=== PATIENT | female | born 1980 | race Caucasian/White ===

== ENCOUNTER 2019-07-24 04:39 | Emergency (ER) | payer OTHER, SELFPAY ==
--- NOTE | ~2019-07-24 | XR_ITS ---
EXAMINATION: XR knee LT 3V DATE: 07/24/2019 05:14 INDICATION: Posterior left knee pain TECHNIQUE: Anteroposterior, oblique and crosstable lateral views of the left knee were obtained COMPARISON: None. FINDINGS: Alignment is normal. No fracture. At least mild joint space narrowing the medial compartment and mar ginal osteophytes in the lateral and patellofemoral compartments consistent with tricompartmental ost eoarthritis. Severity of joint space narrowing can however be underestimated on nonweightbearing imag ing. No joint effusion/layering lipohemarthrosis. Soft tissues are unremarkable. IMPRESSION: 1. 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 No left knee joint effusion or acu te osseous abnormality. Reviewed, dictated and finalized at location A. JOINER IMPRESSION: 1. 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 No left knee joint effusion or acute osseous abnormality.
[2019-07-24 04:47] VITALS: BP 117/76; PULSE 77; RESP 16; TEMP 36.7; O2SAT 98
--- NOTE | 2019-07-24 05:07 | ED.LOWEXIN ---
HPI - Extremity Injury (Lower) General Chief Complaint: Extremity Injury, Lower Stated Complaint: L KNEE PAIN Time Seen by Provider: 07/24/19 04:45 History of Present Illness HPI Narrative: Patient is a 39-year-old female who presents the ER with left-sided knee pain. Patient sat down on the toilet at 10:30 PM and felt a pop in her left knee. She had no pain at that time. However when she tried to go from sitting to standing she developed a lot of pain in the left lateral aspect of the knee and posteriorly. No new numbness or tingling distal to the injury. No appreciable swelling. Has difficulty with any sort of ambulation. Went to bed this evening and woke up to use the restroom. She had so much pain she was unable to walk to the bathroom. She came to the ER with her mother. Any type of movement worsens patient's pain. No alleviating factors other than sitting still. Related Data Allergies Allergy/AdvReac Type Severity Reaction Status Date / Time meperidine Allergy Unknown Verified 09/06/13 09:18 Review of Systems Constitutional: Constitutional: Denies fever(s) and Denies weakness Musculoskeletal: Musculoskeletal: Reports arthralgias, Denies joint swelling and Denies muscle cramps Neurologic: Denies focal weakness and Denies numbness PMFSH Past Medical History Medical History (Updated 07/24/19 @ 05:46 by Kiel Salazar MD) Migraine with aura Surgical History Surgical History (Updated 07/24/19 @ 05:09 by Kiel Salazar MD) No significant past surgical history Social History Social History Smoking status: Never smoker Alcohol intake: current Exam Narrative: Exam Narrative: GENERAL: Well-appearing, morbidly obese, and in no acute distress. HEAD: Normocephalic, atraumatic. HEART: Regular rate and rhythm. Normal peripheral pulses. EXTREMITIES: Focused exam left lower extremity elicits no point tenderness around the left knee. Patient has the ability to get the full extension and can get to near full flexion but has significant pain with range of motion over the lateral posterior lateral aspect of the knee. No appreciable effusion. No contusion noted. SKIN: Warm, dry, no rash. NEURO: No focal deficits. Alert and oriented x3. PSYCH: Normal mood and affect. Course Course Emergency Course: Patient informed of results. Will place knee immobilizer and placed on crutches weightbearing as tolerated. Will give Ortho follow-up. Vital Signs Vital signs: Vital Signs Temperature 98.1 F 07/24/19 04:47 Pulse Rate 77 07/24/19 04:47 Respiratory Rate 16 07/24/19 04:47 Blood Pressure 117/76 07/24/19 04:47 Pulse Oximetry 98 07/24/19 04:47 Temperature 98.1 F 07/24/19 04:47 Pulse Rate 77 07/24/19 04:47 Respiratory Rate 16 07/24/19 04:47 Blood Pressure 117/76 07/24/19 04:47 Pulse Oximetry 98 07/24/19 04:47 MDM - Extremity Injury (Lower) Imaging Data My impression: XR left knee: No acute fracture. Discharge Plan Discharge Clinical Impression: Left knee sprain Qualifiers: Encounter type: initial encounter Involved ligament of knee: unspecified ligament Qualified Code(s): S83.92XA - Sprain of unspecified site of left knee, initial encounter Patient Disposition: Home, Self-Care Condition: Stable Instructions: Knee Sprain (ED) Additional Instructions: There is no evidence of fracture on the x-ray in the ER. Bear weight as tolerated. If your pain persists you will likely require further evaluation, possibly an MRI to assess the internal structure of the knee for injury. Return the ER if you have chest pain or shortness of breath, you have severe lower extremity redness/swelling with pain in the calf, you have additional concerns. Prescriptions: New hydrocodone-acetaminophen 7.5-325 mg tablet 1 tablet PO Q6H PRN (Reason: pain) Qty: 20 RF: 0 Follow-up/Referrals: PHYSICIAN NOT ON STAFF,NONSTAFF [Primary Care Provider] -
[2019-07-24 06:24] VITALS: BP 121/71; PULSE 82; RESP 16; TEMP 36.9; O2SAT 98
== END 2019-07-24 06:27 | disposition home or self-care (01) ==
PROVIDERS: Emergency Provider Emergency Medicine
DX: S83.92XA Sprain of unspecified site of left knee, initial encounter (principal); X50.0XXA Overexertion from strenuous movement or load, initial encounter
CPT/HCPCS: 73562; 99283; A9270

== ENCOUNTER 2019-07-27 16:33 | Outpatient (CLI) | payer OTHER, SELFPAY ==
--- NOTE | ~2019-07-27 | US_ITS ---
EXAMINATION:US venous doppler LE LT INDICATION:Left calf pain TECHNIQUE: Multiple grayscale, color flow and Doppler images of the left lower extremity deep venous systems were obtained and reviewed. COMPARISON:No prior studies for comparison. FINDINGS: The common femoral, superficial femoral and popliteal veins demonstrate normal respiratory variation, augmentation and compressibility. Color flow is also seen within the posterior tibial, pe roneal, greater saphenous and profunda veins. 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 IMPRESSION: 1: No lower extremity deep venous thrombosis. Reviewed, dictated and finalized at location A. E MANAGER
== END 2019-07-27 16:34 | disposition home or self-care (01) ==
LOC: ANHIMG 16:40
PROVIDERS: Visit Provider Orthopaedic Surgery
DX: M79.662 Pain in left lower leg (principal)
CPT/HCPCS: 93971

== ENCOUNTER 2020-07-31 10:13 | Emergency (ER) | payer OTHER, SELFPAY ==
[2020-07-31] VITALS (13 sets, daily range): BP systolic 135–150; BP diastolic 81–94; PULSE 68–93; RESP 12–25; TEMP 36.1; O2SAT 95–100
--- NOTE | ~2020-07-31 | XR_ITS ---
EXAMINATION: XR chest 2V EXAM DATE: 07/31/2020 11:36 INDICATION: Shortness of breath, nausea, fatigue. Tingling in toes, fingers. TECHNIQUE: Frontal and lateral projections of the chest obtained and reviewed. There is no prior adia dy for comparison. FINDINGS: The lungs are clear. There are no pleural effusions. The cardiomediastinal silhouette is within normal limits. There is no pneumothorax suspected. The bones and soft tissues are unremarkab le. There are cholecystectomy clips. IMPRESSION: No acute cardiopulmonary findings. Reviewed, dictated and finalized at location B. TTANCE CLERK
--- NOTE | 2020-07-31 10:35 | ED.GENADULT ---
HPI - General Adult General Chief complaint: Unspecified Stated complaint: Multiple Complaints Time Seen by Provider: 07/31/20 10:35 History of Present Illness HPI narrative: 40 yo female presents from home for fatigue. She reports that she has been extremely fatigued for the past 5 days. She says that after minimal activity she needs to take a nap. She also notes tingling to her face bilaterally. Intermittent mild WORRELL. Related Data Allergies Allergy/AdvReac Type Severity Reaction Status Date / Time meperidine Allergy Unknown Itching Verified 07/31/20 10:32 Review of Systems Review of Systems: All systems reviewed & are unremarkable except as noted in HPI and below Constitutional: Constitutional: Denies chills, Reports daytime sleepiness, Reports fatigue and Denies fever(s) Eyes: Eyes: Reports no additional eye complaints ENT: Denies sore throat Cardiovascular: Cardiovascular: Denies chest pain and Reports dyspnea on exertion Respiratory: Respiratory: Denies cough Gastrointestinal: Gastrointestinal: Denies abdominal pain Genitourinary: Genitourinary: Reports no additional female genitourinary complaints Musculoskeletal: Musculoskeletal: Reports myalgias Neurologic: Reports numbness and Reports weakness PMFSH Past Medical History Medical History Headache Migraine with aura Seasonal allergies Urinary frequency Vision abnormalities Weight gain Surgical History Surgical History History of cholecystectomy No significant past surgical history Family History Family History Other Arthritis Cancer Diabetes mellitus Heart disease Hypertension Social History Social History Smoking status: Never smoker Alcohol intake: current Gender identity (if verbalized by the patient): Female Exam Const: General: healthy appearing, no acute distress and alert Nutritional Appearance: obese Orientation/consciousness: patient oriented x3 HENMT: Head: normal to inspection Neck: Neck: normal visual inspection and no lymphadenopathy Chest: Chest palpation & inspection: no tenderness Resp: Effort & Inspection: normal respiratory effort Auscultation: clear to auscultation bilaterally, no rales, no rhonchi and no wheezes Cardio: Jugular venous distension: no JVD Rate: regular rate Rhythm: regular rhythm Heart sounds: no murmurs GI: Inspection: non-distended GI Palp: Yes Soft to palpation and No Tenderness to palpation present (GI) Skin: General skin exam: normal color Neuro: General: patient oriented x3 and moves all extremities Speech: normal speech Extrem: General: no edema Psych: Appearance: well kempt Affect: normal affect Course Vital Signs Vital signs: Vital Signs Temperature 36.1 C L 07/31/20 10:25 Pulse Rate 93 07/31/20 10:25 Respiratory Rate 18 07/31/20 10:25 Blood Pressure 150/94 H 07/31/20 10:25 Pulse Oximetry 95 07/31/20 10:25 Temperature 36.1 C L 07/31/20 10:25 Pulse Rate 68 07/31/20 14:01 Respiratory Rate 12 07/31/20 14:01 Blood Pressure 136/81 07/31/20 14:01 Pulse Oximetry 100 07/31/20 14:01 Medical Decision Making Medical Records Medical records reviewed: Yes I reviewed the external patient's medical records. Vital Signs Vital Signs: Vital Signs Temperature 36.1 C L 07/31/20 10:25 Pulse Rate 93 07/31/20 10:25 Respiratory Rate 18 07/31/20 10:25 Blood Pressure 150/94 H 07/31/20 10:25 Pulse Oximetry 95 07/31/20 10:25 Temperature 36.1 C L 07/31/20 10:25 Pulse Rate 68 07/31/20 14:01 Respiratory Rate 12 07/31/20 14:01 Blood Pressure 136/81 07/31/20 14:01 Pulse Oximetry 100 07/31/20 14:01 Lab Data Result diagrams: 07/31/20 11:07 07/31/20 11:07
--- NOTE | 2020-07-31 10:44 | ECG_ITS ---
Measurements Intervals [place] Rate: 77 P: 42 NE: 151 QRS: 17 QRSD: 89 T: 20 QT: 382 QTc: 432 Interpretive Statements SINUS RHYTHM NORMAL ECG Electronically Signed On 07-31-2020 11:33:55 HOME HEALTH OUTREACH COORDINATOR by Sukhdev Duval D.O.
[2020-07-31 11:52] LABS: Basophils Percent Auto 0.5 % (0.2-1.2); Eosinophils Absolute Auto 0.1 K/mm3 (0-0.3); Hematocrit 41.5 % (37.0-47.0); Hemoglobin 14.4 g/dL (12.0-15.0); Immature Granulocyte Absolute 0.01 K/mm3 (0.00-0.031); Immature Granulocyte Percent A 0.1 % (0-0.5); Lymphocytes Absolute Auto 1.85 K/mm3 (0.9-3.2); Lymphocytes Percent Auto 23.4 % (18.3-44.2); Mean Corpuscular HGB Conc 34.7 g/dl (32-36); Mean Corpuscular Hemoglobin 30.8 pg (26-34); Mean Corpuscular Volume 88.9 fl (80-100); Mean Platelet Volume 10.6 fl (7.4-10.4); Monocytes Absolute Auto 0.5 K/mm3 (0.1-0.6); Monocytes Percent Auto 6.8 % (2.6-8.5); Neutrophils Absolute Auto 5.4 K/mm3 (1.3-6.7); Neutrophils Percent Auto 68.2 % (45.5-73.1); Platelet Count Result 215 k/mm3 (150-375); Red Blood Count 4.67 M/mm3 (4.2-5.4); Red Cell Distribution Width 12.7 % (11.5-14.5); White Blood Count 7.9 K/mm3 (4.5-10.0)
[2020-07-31 11:58] LABS: Add Urine Microscopic? YES; Appearance Urine Clear (Clear); Bilirubin Urine Negative (Negative); Blood Urine Negative (Negative); Color Urine Yellow (Yellow); Glucose Urine UA Negative (Negative); Ketones Urine Negative (Negative); Leukocyte Esterase Ur Negative LEU/UL (Negative); Mucus Urine Rare /lpf; Nitrate Urine Negative (Negative); Protein Urine 1+ mg/dL (Negative); RBC Urine 0-2 /hpf (0-2); Specific Grav Ur 1.023 (1.001-1.035); Squamous Epithelial Cell Urine Occasional /hpf (Few); Urobilinogen Urine Negative mg/dL (<2.0); WBC Urine 0-3 /hpf
[2020-07-31 12:06] LABS: INR 0.9; Partial Thromboplastin Time 24.8 SECONDS (22.3-36.8); Prothrombin Time 12.3 Seconds (11.1-14.7)
[2020-07-31 12:13] LABS: Alanine Aminotransferase 19 U/L (4-35); Albumin Level 3.9 g/dL (3.5-5.1); Alkaline Phosphatase 61 U/L (38-126); Anion Gap 11 mmol/L (8-16); Aspartate Amino Transferase 24 U/L (14-36); Bilirubin,Total 0.3 mg/dL (0.2-1.3); Blood Urea Nitrogen 10 mg/dL (7-17); Calcium 8.9 mg/dL (8.4-10.2); Carbon Dioxide 19 mmol/L (22-30); Chloride 111 mmol/L (98-107); Estimated CRCL calculation 125 ml/min; Estimated Glomerular Filt Rate > 60; Glucose 95 mg/dL (65-105); Potassium 3.9 mmol/L (3.4-5.0); Sodium 141 mmol/L (137-145)
== END 2020-07-31 14:07 | disposition home or self-care (01) ==
PROVIDERS: Emergency Provider Emergency Medicine; PCP Internal Medicine
DX: R53.83 Other fatigue (principal); R53.81 Other malaise
CPT/HCPCS: 36415; 71046; 80053; 81001; 84443; 85025; 85610; 85730; 93005; 99283

== ENCOUNTER 2023-12-07 13:38 | Emergency (ER) | payer BC, SELFPAY ==
--- NOTE | ~2023-12-07 | CT_ITS ---
EXAMINATION: CT abdomen pelvis w con DATE: 12/07/2023 15:02 INDICATION: Generalized abdominal pain TECHNIQUE: Computed tomography (CT) of the abdomen and pelvis was performed with 100 mL Omnipaque-350 intravenous contrast. Automated exposure control and iterative reconstruction technique were employe d. The dose-length product was 1679.01 mGy-cm. COMPARISON: None. FINDINGS: Lower thorax: Sub-six mm right middle lobe pulmonary nodule. Liver: Enlarged. Diffusely low-density parenchyma. Biliary/Gallbladder: Gallbladder is absent. Mild common bile duct dilation likely secondary to cholec ystectomy. Pancreas: No mass or duct dilation. Spleen: Normal. Adrenals:No mass. Kidneys: No suspicious mass, obstructing stone, or hydronephrosis. Simple right lower pole cyst. Bila teral subcentimeter hypodensities, too small to characterize but most likely represent cysts. GI tract: No small or large bowel dilation. Normal appendix. Mesentery/Peritoneum: No ascites, mass, or free air. Retroperitoneum: No mass. Pelvis: Pelvic organs are within normal limits. Soft Tissues: Soft tissues and body wall unremarkable. Bones: No acute osseous finding. IMPRESSION: Sub-six millimeter right middle lobe pulmonary nodule which requires no additional evaluation unless the patient is at high risk, in which case consider an optional low-dose noncontrast CT of the chest in one year. Hepatomegaly with steatosis. Otherwise unremarkable CT abdomen and pelvis findings. Reviewed, dictated and finalized at location K. IMPRESSION: Sub-six millimeter right middle lobe pulmonary nodule which requires no additio nal evaluation unless the patient is at high risk, in which case consider an op tional low-dose noncontrast CT of the chest in one year. Hepatomegaly with steatosis. Otherwise unremarkable CT abdomen and pelvis findings.
[2023-12-07 13:42] VITALS: BP 142/86; PULSE 96; RESP 16; TEMP 37.2; O2SAT 99
[2023-12-07 14:08] LABS: Basophils Percent Auto 0.3 % (0.2-1.2); Eosinophils Absolute Auto 0.4 K/mm3 (0-0.3); Eosinophils Percent Auto 3.7 % (0-4.4); Hematocrit 40.9 % (37.0-47.0); Hemoglobin 14.2 g/dL (12.0-15.0); Immature Granulocyte Absolute 0.04 K/mm3 (0.00-0.031); Immature Granulocyte Percent A 0.3 % (0-0.5); Lymphocytes Absolute Auto 1.71 K/mm3 (0.9-3.2); Lymphocytes Percent Auto 14.4 % (18.3-44.2); Mean Corpuscular HGB Conc 34.7 g/dl (32-36); Mean Corpuscular Hemoglobin 29.3 pg (26-34); Mean Corpuscular Volume 84.3 fl (80-100); Mean Platelet Volume 10.5 fl (7.4-10.4); Monocytes Percent Auto 8.6 % (2.6-8.5); Neutrophils Absolute Auto 8.6 K/mm3 (1.3-6.7); Neutrophils Percent Auto 72.7 % (45.5-73.1); Platelet Count Result 207 k/mm3 (150-375); Red Blood Count 4.85 M/mm3 (4.2-5.4); Red Cell Distribution Width 13.2 % (11.5-14.5); White Blood Count 11.9 K/mm3 (4.5-10.0)
--- NOTE | 2023-12-07 14:13 | ED.NAVMDI ---
HPI - Nausea/Vomiting/Diarrhea General Chief complaint: Nausea/Vomiting/Diarrhea Stated complaint: vomiting Time Seen by Provider: 12/07/23 14:13 Source: patient Mode of arrival: ambulatory Limitations: no limitations History of Present Illness HPI Narrative: 43 years old white female drove herself to the [facility] complaining of nausea, vomiting and diarrhea on average 5-10 times since 12 noon yesterday. Associated with chills and upper abdominal pain. Also and complaining of flank pain bilaterally. She denies sick contact. Last time was seen by a physician over 3 years ago, does not take medicine at this time. Healthy otherwise. Related Data Allergies Allergy/AdvReac Type Severity Reaction Status Date / Time meperidine Allergy Unknown Itching Verified 12/07/23 14:37 Review of Systems Review of Systems: All systems reviewed & are unremarkable except as noted in HPI and below PMFSH Past Medical History Medical History (Updated 12/07/23 @ 15:55 by Brenden Hernandez MD) Headache Migraine with aura Seasonal allergies Urinary frequency Vision abnormalities Weight gain Surgical History Surgical History History of cholecystectomy No significant past surgical history Family History Family History Other Arthritis Cancer Diabetes mellitus Heart disease Hypertension Social History Social History Smoking status: Never smoker Alcohol intake: current Alcohol use details: Occasional Gender identity (if verbalized by the patient): Female Exam Narrative: General appearance: Well-developed, well-nourished, morbidly obese Skin: Normal color Head: Normocephalic, nontraumatic Eyes: Clear conjunctiva ENT: Oropharynx normal, ears normal, nose normal Neck: Supple, nontender Chest and respiratory: Airway patent, no respiratory distress, no accessory muscle use Heart: Regular rate/rhythm Abdomen: Soft, slight upper abdominal tenderness, no rebound or guarding r, no organomegaly, quiet bowel sounds Vascular: Normal peripheral pulses, normal capillary refill. 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, no gross motor deficit Course Vital Signs Vital signs: Vital Signs Temperature 37.2 C 12/07/23 13:42 Pulse Rate 96 12/07/23 13:42 Respiratory Rate 16 12/07/23 13:42 Blood Pressure 142/86 H 12/07/23 13:42 Pulse Oximetry 99 12/07/23 13:42 Oxygen Delivery Room Air 12/07/23 13:42 Temperature 37.2 C 12/07/23 13:42 Pulse Rate 96 12/07/23 13:42 Respiratory Rate 16 12/07/23 13:42 Blood Pressure 142/86 H 12/07/23 13:42 Pulse Oximetry 99 12/07/23 13:42 Oxygen Delivery Room Air 12/07/23 13:42 MDM - Nausea/Vomiting/Diarrhea MDM Narrative Medical decision making narrative: Differential diagnosis include viral gastroenteritis, dehydration, electrolyte imbalance, colitis, pancreatitis, cholecystitis and diverticulitis Laboratory studies were obtained on the patient and showed a white count of 11.9 otherwise insignificant blood workup, urinalysis showed no urinary tract infection, CT scan of the abdomen and pelvis showed pulmonary nodule otherwise insignificant abnormality. Gastroenteritis is my concern. In the ED patient received IV fluid and Zofran was remarkable improvement. The plan to discharge patient on Zofran and encourage fluid intake. Differential Diagnosis Differential diagnosis: Likely other (As above) Medical Records Attestation: I reviewed the patient'
[2023-12-07 14:17] LABS: Alanine Aminotransferase 24 U/L (6-35); Albumin Level 4.6 g/dL (3.5-5.1); Alkaline Phosphatase 80 U/L (38-126); Anion Gap 9 mmol/L (4-12); Aspartate Amino Transferase 24 U/L (14-36); Bilirubin,Total 0.9 mg/dL (0.2-1.3); Blood Urea Nitrogen 7 mg/dL (7-17); Calcium 8.9 mg/dL (8.4-10.2); Carbon Dioxide 25 mmol/L (22-30); Chloride 105 mmol/L (98-107); Estimated CRCL calculation 144 ml/min; Estimated Glomerular Filt Rate > 60; Glucose 120 mg/dL (65-110); Lipase 108 U/L (23-300); Potassium 3.4 mmol/L (3.4-5.0); Sodium 139 mmol/L (137-145)
[2023-12-07 14:40] LABS: Appearance Urine Cloudy (Clear); Bacteria Urine Rare /hpf; Bilirubin Urine Negative (Negative); Blood Urine Negative (Negative); Color Urine Dark Yellow (Yellow); Glucose Urine UA Negative (Negative); Ketones Urine Trace mg/dL (Negative); Leukocyte Esterase Ur Trace LEU/UL (Negative); Need Manual Microscopic Reviewed; Nitrate Urine Negative (Negative); Protein Urine 1+ mg/dL (Negative); Specific Grav Ur 1.016 (1.001-1.035); Squamous Epithelial Cell Urine Many /hpf (Few); pH Urine 6.5 (5.0-9.0)
[2023-12-07 14:41] LABS: Add Urine Microscopic? YES
[2023-12-07] MEDS: ONDANSETRON INJ 4 MG/2 ML VIAL 8 MG IV PUSH (15:06)
[2023-12-07] MEDS: SODIUM CHLORIDE 0.9% IV 2,000 ML 999 ML IV CONT (15:08)
[2023-12-07 16:01] VITALS: BP 153/91; PULSE 82; RESP 22; O2SAT 98
[2023-12-07 16:16] VITALS: BP 138/78; PULSE 82; RESP 22; O2SAT 98
[2023-12-07 16:31] VITALS: BP 145/87; PULSE 78; RESP 22; O2SAT 97
[2023-12-07 16:46] VITALS: BP 152/91; PULSE 81; RESP 24; O2SAT 98
[2023-12-07 17:01] VITALS: BP 140/92; PULSE 80; RESP 20; O2SAT 98
== END 2023-12-07 17:05 | disposition home or self-care (01) ==
PROVIDERS: Emergency Medicine; Emergency Provider Emergency Medicine; PCP Internal Medicine
DX: K52.9 Noninfective gastroenteritis and colitis, unspecified (principal); R91.1 Solitary pulmonary nodule; Z90.49 Acquired absence of other specified parts of digestive tract; K76.0 Fatty (change of) liver, not elsewhere classified; R16.0 Hepatomegaly, not elsewhere classified
CPT/HCPCS: 36415; 74177; 80053; 81001; 83690; 85025; 87086; 87088; 96361; 96374; 99284; J2405; J7030; Q9967

== ENCOUNTER 2024-04-20 11:57 | Emergency (ER) | payer BC, SELFPAY ==
--- NOTE | ~2024-04-20 | CT_ITS ---
EXAMINATION: CTA BRAIN/CAROTID DATE: 04/20/2024 14:32 INDICATION: Neck pain after chiropractic adjustment TECHNIQUE: Computed tomographic angiography (CTA) of the head and neck was performed with 100 mL Omni paque-350 intravenous contrast. Multiplanar reconstructions and maximum intensity projection 3D-recon structions of the carotid arteries and of the intracranial arteries were created by the technologist on a separate workstation. Precontrast CT of the head was also obtained. Automated exposure control and iterative reconstruction technique were employed.The dose-length product was 1609.64 mGy-cm. COMPARISON: None. FINDINGS: Carotid arteries: Visualized portion of the aortic arch is normal in caliber with no dissection. There is no evident at herosclerotic plaque with 0% stenosis of the right and left carotid bulbs relative to normal distal a rtery lumen diameter (NASCET criteria). Bilateral vertebral arteries are codominant with no evident h emodynamically significant stenosis or dissection. Mild thoracic spondylosis. Visualized portion of t he mid to upper lungs are clear. Likely benign 8 mm low-attenuation right thyroid nodule. Cervical so ft tissues are unremarkable. Head: No acute intracranial hemorrhage, acute infarction or abnormal extra axial fluid collection. Ventricl es are normal and symmetric. No mass/mass effect. No abnormally enhancing brain lesions on the postco ntrast imaging. The orbits and mastoid air cells are normal. Mucosal thickening at the inferior aspec t left sphenoid and bilateral maxillary sinuses. Intracranial arteries There is no hemodynamically significant stenosis in the vertebral, basilar and internal carotid arter ies. Vertebral arteries are codominant. There are no aneurysms identified. Both A1 and P1 segments a re patent. There is also a small left and diminutive right posterior communicating arteries. Cerebral arterial arborization appears symmetric. IMPRESSION: 1. No evident atherosclerotic plaque with 0% stenosis of the right and left carotid bulbs relative to normal distal artery lumen diameter (NASCET criteria). 2. Normal codominant bilateral vertebral arteries with no hematoma significant stenosis or dissection . 3. Normal brain with no acute intracranial process or abnormally enhancing brain lesions. Reviewed, dictated and finalized at location B. UNITY SERVICE ORGANIZATION DIRECTOR IMPRESSION: 1. No evident atherosclerotic plaque with 0% stenosis of the right and left car otid bulbs relative to normal distal artery lumen diameter (NASCET criteria). 2. Normal codominant bilateral vertebral arteries with no hematoma significant stenosis or dissection. 3. Normal brain with no acute intracranial process or abnormally enhancing brai n lesions.
[2024-04-20 11:59] VITALS: BP 145/96; PULSE 96; RESP 17; TEMP 36.8; O2SAT 98
--- NOTE | 2024-04-20 13:27 | ED.NECK ---
HPI - Neck Pain/Injury General Chief Complaint: Neck Pain/Injury <Aminta Jung PA-C - Last Filed: 04/20/24 13:31> Stated Complaint: upper back/shoulder pain <Aminta Jung PA-C - Last Filed: 04/20/24 13:31> Time Seen by Provider: 04/20/24 16:56 <Aminta Jnug PA-C - Last Filed: 04/20/24 13:31> Focused HPI: 44-year-old female presents to the emergency department for neck pain since 04/10/2024. Patient states she which her chiropractor was placed in a neck brace instead on a vibrating plate. Since then she has been having pain to the neck that radiates down to the left arm with associated left jaw numbness. She states she has been gap back to the chiropractor several times with attempted adjustments with pain continues to get worse. Denies hand clumsiness, bowel or bladder incontinence or urinary retention GENERAL: Well-appearing, well-nourished, and in no acute distress. HEAD: Normocephalic, atraumatic. NECK: Midline cervical spinous tenderness that extends into the left trapezius and left arm. Radial, median ulnar nerves are intact. Strength 5/5 CHEST: Clear to auscultation. ?No respiratory distress. HEART: Regular rate and rhythm.? NEURO: ?Alert and oriented x3. Patient screened in triage and initial orders placed.? ?Additional care and disposition to be based upon?diagnostic testing and treatment. <Aminta Jung PA-C - Last Filed: 04/20/24 13:31> Focused HPI: 44-year-old female presents to the emergency department for neck pain since 04/10/2024. Patient states she which her chiropractor was placed in a neck brace instead on a vibrating plate. Since then she has been having pain to the neck that radiates down to the left arm with associated left jaw numbness. She states she has been gap back to the chiropractor several times with attempted adjustments with pain continues to get worse. Denies hand clumsiness, bowel or bladder incontinence or urinary retention. GENERAL: Well-appearing, well-nourished, and in no acute distress. HEAD: Normocephalic, atraumatic. NECK: Midline cervical spinous tenderness that extends into the left trapezius and left arm. Radial, median ulnar nerves are intact. Strength 5/5 CHEST: Clear to auscultation. ?No respiratory distress. HEART: Regular rate and rhythm.? NEURO: ?Alert and oriented x3. Patient screened in triage and initial orders placed.? ?Additional care and disposition to be based upon?diagnostic testing and treatment. <Maeve Mayo PA-C - Last Filed: 04/20/24 21:23> Source: patient <Maeve Mayo PA-C - Last Filed: 04/20/24 21:23> Mode of arrival: ambulatory <Maeve Mayo PA-C - Last Filed: 04/20/24 21:23> Limitations: no limitations <ERIN Blanco Last Filed: 04/20/24 21:23> History of Present Illness HPI Narrative: Agree with above HPI. Has had increased pain over past 1 week. Has not taken anything for pain today. Denies numbness or tingling in arm, weakness. <Maeve Mayo PA-C - Last Filed: 04/20/24 21:23> Related Data Allergies/Adverse Reactions: Allergies Allergy/AdvReac Type Severity Reaction Status Date / Time meperidine Allergy Unknown Itching Verified 12/07/23 14:37 <Aminta Jung PA-C - Last Filed: 04/20/24 13:31> Review of Systems Review of Systems: All systems reviewed & are unremarkable except as noted in HPI. <Maeve Mayo PA-C - Last Filed: 04/20/24 21:23> All systems reviewed & are unremarkable except as noted in HPI and below <Maeve Mayo PA-C - Last Filed: 04/20/24 21:23> [facility] Past Medical History Medical History: Medical History (Updated 04/20/24 @ 18:43 by Maeve Mayo PA-C) Headache Migraine with aura Seasonal allergies Urinary frequency Vision abnormalities Weight gain <Aminta Jung PA-C - Last Filed: 04/20/24 13:31> Surgical History Surgical History: Surgical History History of cholecystectomy No significant past surgical history <Aminta Jung PA-C - Last Filed: 04/20/24 13:31> Family History Family History: Family History Other Arthritis Cancer Diabetes mellitus Heart disease Hypertension <Aminta Jung PA-C - Last Filed: 04/20/24 13:31> Social History Social History: Social History Smoking status: Never smoker Alcohol intake: current Alcohol use details: Occasional Gender identity (if verbalized by the patient): Female <Aminta Jung PA-C - Last Filed: 04/20/24 13:31> Exam Narrative: GENERAL: Well appearing, morbidly obese with BMI of 55.1, non-toxic, in no acute distress. HEAD: Normocephalic, atraumatic. NECK: No significant midline cervical spinal tenderness. TTP over L paraspinal musculature into L upper trapezius region. Palpable muscle tension. RESPIRATORY: Airway patent, respirations nonlabored. Clear to auscultation bilaterally, no rales, rhonchi, wheezing. CARDIOVASCULAR: Regular rate and rhythm without murmurs, rubs, or gallops. Peripheral pulses intact. MUSCULOSKELETAL: Moves all extremities. No gross deformities. Sensation intact throughout LUE, no paraesthesias. Good restorative care technician strength in LUE. SKIN: Warm, dry, normal color. NEURO: A&O X3. Speech clear. Cranial nerves II-XII grossly intact. Steady gait. No ataxic movements. No focal deficits. PSYCHIATRIC: Appropriate mood and affect. Normal interaction. <Maeve Mayo PA-C - Last Filed: 04/20/24 21:23> Course Vital Signs Vital signs: Vital Signs Temperature 98.3 F 04/20/24 11:59 Pulse Rate 96 04/20/24 11:59 Respiratory Rate 17 04/20/24 11:59 Blood Pressure 145/96 H 04/20/24 11:59 Pulse Oximetry 98 04/20/24 11:59 Oxygen Delivery Room Air 04/20/24 11:59 Temperature 98.2 F 04/20/24 19:39 Pulse Rate 82 04/20/24 19:39 Respiratory Rate 18 04/20/24 19:39 Blood Pressure 136/86 04/20/24 19:39 Pulse Oximetry 97 04/20/24 19:39 Oxygen Delivery Room Air 04/20/24 16:35 <Aminta Jung PA-C - Last Filed: 04/20/24 13:31> Vital Signs Temperature 98.3 F 04/20/24 11:59 Pulse Rate 96 04/20/24 11:59 Respiratory Rate 17 04/20/24 11:59 Blood Pressure 145/96 H 04/20/24 11:59 Pulse Oximetry 98 04/20/24 11:59 Oxygen Delivery Room Air 04/20/24 11:59 Temperature 98.2 F 04/20/24 19:39 Pulse Rate 82 04/20/24 19:39 Respiratory Rate 18 04/20/24 19:39 Blood Pressure 136/86 04/20/24 19:39 Pulse Oximetry 97 04/20/24 19:39 Oxygen Delivery Room Air 04/20/24 16:35 <ERIN Blanco Last Filed: 04/20/24 21:23> MDM - Neck Pain/Injury MDM Narrative Medical decision making narrative: Patient presented to ED with 1 week history of worsening left-sided neck/upper back pain after several recent chiropractic adjustments. Vital signs are stable upon arrival. Patient is neurovascularly intact. No acute distress. No focal deficits. No sensory deficits or weakness. Laboratory studies are unremarkable. CTA of head/neck unremarkable. No acute osseous abnormality. No vertebral artery dissection. Suspect musculoskeletal etiology to pain/trapezius strain. Patient given Solu-Medrol, Valium, lidocaine patch, Toradol, [place] in the ED. On re-evaluation, she is feeling better with supportive therapy. Feel patient is safe for discharge home at this time. Will discharge with muscle relaxers, steroid pack, lidocaine patches. Advised to avoid any further strenuous activity/adjustments until she is feeling improved. Given return precautions. She agrees with plan. Discharged in stable condition. <ERIN Blanco Last Filed: 04/20/24 21:23> Medical Records Attestation: I reviewed the patient's medical records. <Maeve Mayo PA-C - Last Filed: 04/20/24 21:23> Lab Data Attestation: I reviewed the patient's lab results. <Maeve Mayo PA-C - Last Filed: 04/20/24 21:23> Result diagrams: 04/20/24 14:11 04/20/24 14:22 <Aminta Jung PA-C - Last Filed: 04/20/24 13:31> Labs: Lab Results 04/20/24 04/20/24 Range/Units 14:11 14:22 WBC 4.6 (4.5-10.0) K/mm3 RBC 4.87 (4.2-5.4) M/mm3 Hgb 14.1 (12.0-15.0) g/dL Hct 41.9 (37.0-47.0) % MCV 86.0 (80-100) fl MCH 29.0 (26-34) pg MCHC 33.7 (32-36) g/dl RDW 13.5 (11.5-14.5) % Plt Count 154 (150-375) k/mm3 MPV 10.0 (7.4-10.4) fl Immature Gran % (Auto) 0.2 (0-0.5) % Neut % (Auto) 62.4 (45.5-73.1) % Lymph % (Auto) 21.8 (18.3-44.2) % [place] % (Auto) 14.5 H (2.6-8.5) % Eos % (Auto) 0.2 (0-4.4) % Baso % (Auto) 0.9 (0.2-1.2) % Lymph # (Auto) 0.99 (0.9-3.2) K/mm3 [place] # (Auto) 0.7 H (0.1-0.6) K/mm3 Eos # (Auto) 0.0 (0-0.3) K/mm3 Baso # (Auto) 0.0 (0.0-0.1) K/mm3 Abs Immat Gran (auto) 0.01 (0.00-0.031) K/mm3 Absolute Neuts (auto) 2.8 (1.3-6.7) K/mm3 Absolute Nucleated RBC 0.000 (0.0-0.012) K/mm3 Nucleated RBC % 0.0 (0.0-0.2) % PT 13.9 (11.1-14.7) Seconds INR 1.0 APTT 24.0 (22.3-36.8) Seconds Sodium 136 L (137-145) mmol/L Potassium 4.1 (3.4-5.0) mmol/L Chloride 107 (98-107) mmol/L Carbon Dioxide 21 L (22-30) mmol/L Anion Gap 8 (4-12) mmol/L BUN 12 D (7-17) mg/dL Creatinine 0.70 0.90 (0.7-1.0) mg/dL Estim Creat Clear Calc Not Reportable Not Reportable Estimated GFR > 60 > 60 (59 - ) Glucose 118 H (65-110) mg/dL Calcium 9.0 (8.4-10.2) mg/dL Total Bilirubin 0.5 (0.2-1.3) mg/dL AST 45 H (14-36) U/L ALT 39 H (6-35) U/L Alkaline Phosphatase 73 (38-126) U/L Total Protein 8.0 (6.3-8.2) g/dL Albumin 4.5 (3.5-5.1) g/dL <Aminta Jung PA-C - Last Filed: 04/20/24 13:31> Lab Results 04/20/24 04/20/24 Range/Units 14:11 14:22 WBC 4.6 (4.5-10.0) K/mm3 RBC 4.87 (4.2-5.4) M/mm3 Hgb 14.1 (12.0-15.0) g/dL Hct 41.9 (37.0-47.0) % MCV 86.0 (80-100) fl MCH 29.0 (26-34) pg MCHC 33.7 (32-36) g/dl RDW 13.5 (11.5-14.5) % Plt Count 154 (150-375) k/mm3 MPV 10.0 (7.4-10.4) fl Immature Gran % (Auto) 0.2 (0-0.5) % Neut % (Auto) 62.4 (45.5-73.1) % Lymph % (Auto) 21.8 (18.3-44.2) % [place] % (Auto) 14.5 H (2.6-8.5) % Eos % (Auto) 0.2 (0-4.4) % Baso % (Auto) 0.9 (0.2-1.2) % Lymph # (Auto) 0.99 (0.9-3.2) K/mm3 [place] # (Auto) 0.7 H (0.1-0.6) K/mm3 Eos # (Auto) 0.0 (0-0.3) K/mm3 Baso # (Auto) 0.0 (0.0-0.1) K/mm3 Abs Immat Gran (auto) 0.01 (0.00-0.031) K/mm3 Absolute Neuts (auto) 2.8 (1.3-6.7) K/mm3 Absolute Nucleated RBC 0.000 (0.0-0.012) K/mm3 Nucleated RBC % 0.0 (0.0-0.2) % PT 13.9 (11.1-14.7) Seconds INR 1.0 APTT 24.0 (22.3-36.8) Seconds Sodium 136 L (137-145) mmol/L Potassium 4.1 (3.4-5.0) mmol/L Chloride 107 (98-107) mmol/L Carbon Dioxide 21 L (22-30) mmol/L Anion Gap 8 (4-12) mmol/L BUN 12 D (7-17) mg/dL Creatinine 0.70 0.90 (0.7-1.0) mg/dL Estim Creat Clear Calc Not Reportable Not Reportable Estimated GFR > 60 > 60 (59 - ) Glucose 118 H (65-110) mg/dL Calcium 9.0 (8.4-10.2) mg/dL Total Bilirubin 0.5 (0.2-1.3) mg/dL AST 45 H (14-36) U/L ALT 39 H (6-35) U/L Alkaline Phosphatase 73 (38-126) U/L Total Protein 8.0 (6.3-8.2) g/dL Albumin 4.5 (3.5-5.1) g/dL <ERIN Blanco Last Filed: 04/20/24 21:23> Imaging Data Attestation: I personally reviewed and interpreted this imaging study as follows: <Maeve Mayo PA-C - Last Filed: 04/20/24 21:23> Radiologist's impression: ITS Impressions Head/Neck CTA 04/20/24 14:50 IMPRESSION: 1. No evident atherosclerotic plaque with 0% stenosis of the right and left carotid bulbs relative to normal distal artery lumen diameter (NASCET criteria). 2. Normal codominant bilateral vertebral arteries with no hematoma significant stenosis or dissection. 3. Normal brain with no acute intracranial process or abnormally enhancing brain lesions. <ERIN Blanco Last Filed: 04/20/24 21:23> Discharge Plan Discharge Clinical Impression: Strain of cervical portion of left trapezius muscle <ERIN Khan Last Filed: 04/20/24 13:31> Patient Disposition: Home, Self-Care <ERIN Khan Last Filed: 04/20/24 13:31> Condition: Stable <ERIN Khan Last Filed: 04/20/24 13:31> Instructions: Antibiotic Form, Cervical Strain (ED), Cervical Radiculopathy (ED) <ERIN Khan Last Filed: 04/20/24 13:31> Additional Instructions: Take steroid pack as prescribed. Continue Tylenol and Ibuprofen around the clock as needed for pain. You may use ice/heat, lidocaine patches to area of pain. Take muscle relaxers as needed and prescribed. Recommend taking these at night as they may cause sedation. Do not drive, operate heavy machinery, drink alcohol while on muscle relaxers as this may cause further sedation. Follow-up with your primary care doctor for further evaluation. Return to the ED if you experience worsening or severe pain, recurrent injury, numbness, weakness of arm, or any other symptoms of concern. <ERIN Khan Last Filed: 04/20/24 13:31> Prescriptions: New lidocaine 5 % adhesive patch,medicated 1 patch topical DAILY Qty: 15 0RF Rx Instructions: leave on most painful area for up to 12 hrs methylprednisolone [Medrol (Claudy)] 4 mg tablets,dose pack See Rx Instructions PO .COMPLEX Qty: 21 0RF Rx Instructions: orally per package directions cyclobenzaprine 5 mg tablet 5 mg PO TID PRN (Reason: muscle spasm) Qty: 15 0RF No Action ondansetron HCl 4 mg tablet 4 mg PO Q4H Qty: 10 0RF Rx Instructions: 1st dose 1-2 hr before radiation hydrocodone-acetaminophen [[place]] 7.5-325 mg tablet 1 tablet PO Q6H PRN (Reason: pain) Qty: 20 0RF <Aminta Jung PA-C - Last Filed: 04/20/24 13:31> Follow-up/Referrals: Kalpana,Elle Cloud MD [Primary Care Provider] - <Aminta Jung PA-C - Last Filed: 04/20/24 13:31> Time of Disposition: 20:01 <Aminta Jung PA-C - Last Filed: 04/20/24 13:31> 20:01 <Maeve Mayo PA-C - Last Filed: 04/20/24 21:23>
[2024-04-20 14:18] LABS: Basophils Percent Auto 0.9 % (0.2-1.2); Eosinophils Percent Auto 0.2 % (0-4.4); Hematocrit 41.9 % (37.0-47.0); Hemoglobin 14.1 g/dL (12.0-15.0); Immature Granulocyte Absolute 0.01 K/mm3 (0.00-0.031); Immature Granulocyte Percent A 0.2 % (0-0.5); Lymphocytes Absolute Auto 0.99 K/mm3 (0.9-3.2); Lymphocytes Percent Auto 21.8 % (18.3-44.2); Mean Corpuscular HGB Conc 33.7 g/dl (32-36); Monocytes Absolute Auto 0.7 K/mm3 (0.1-0.6); Monocytes Percent Auto 14.5 % (2.6-8.5); Neutrophils Absolute Auto 2.8 K/mm3 (1.3-6.7); Neutrophils Percent Auto 62.4 % (45.5-73.1); Platelet Count Result 154 k/mm3 (150-375); Red Blood Count 4.87 M/mm3 (4.2-5.4); Red Cell Distribution Width 13.5 % (11.5-14.5); White Blood Count 4.6 K/mm3 (4.5-10.0)
[2024-04-20 14:24] LABS: Estimated Glomerular Filt Rate > 60
[2024-04-20 14:30] LABS: Alanine Aminotransferase 39 U/L (6-35); Albumin Level 4.5 g/dL (3.5-5.1); Alkaline Phosphatase 73 U/L (38-126); Anion Gap 8 mmol/L (4-12); Aspartate Amino Transferase 45 U/L (14-36); Bilirubin,Total 0.5 mg/dL (0.2-1.3); Blood Urea Nitrogen 12 mg/dL (7-17); Carbon Dioxide 21 mmol/L (22-30); Chloride 107 mmol/L (98-107); Estimated Glomerular Filt Rate > 60; Glucose 118 mg/dL (65-110); Potassium 4.1 mmol/L (3.4-5.0); Sodium 136 mmol/L (137-145)
[2024-04-20 14:34] LABS: Prothrombin Time 13.9 Seconds (11.1-14.7)
[2024-04-20 14:41] VITALS: BP 148/92; PULSE 95; RESP 15; O2SAT 97
[2024-04-20 16:35] VITALS: BP 135/86; PULSE 83; RESP 18; TEMP 36.3; O2SAT 99
[2024-04-20] MEDS: HYDROcodone/acetaminophen (*CRX) 5-325 MG TABLET 1 TAB PO (17:29)
[2024-04-20] MEDS: KETOROLAC 30 MG/ML VIAL (*BKC) IV PUSH (17:31)
[2024-04-20] MEDS: LIDOCAINE 5% PATCH 1 PATCH TRANSDERM (17:34)
[2024-04-20] MEDS: methylPREDNISolone SOD SUCC 125 MG VIAL IV PUSH (17:34)
[2024-04-20] MEDS: diazePAM INJ (*CRX) 10 MG/2 ML SYRINGE 2 MG IV PUSH (18:01)
[2024-04-20 18:10] VITALS: BP 140/90; PULSE 92; RESP 16; TEMP 36.7; O2SAT 99
[2024-04-20 19:39] VITALS: BP 136/86; PULSE 82; RESP 18; TEMP 36.8; O2SAT 97
== END 2024-04-20 20:21 | disposition home or self-care (01) ==
PROVIDERS: Physician Assistant; Emergency Provider Physician Assistant; PCP Internal Medicine
DX: S16.1XXA Strain of muscle, fascia and tendon at neck level, initial encounter (principal); Z90.49 Acquired absence of other specified parts of digestive tract; X58.XXXA Exposure to other specified factors, initial encounter
CPT/HCPCS: 36415; 70496; 70498; 80053; 85025; 85610; 85730; 96374; 96375; 99284; A9270; J1885; J2919; J3360; Q9967

== ENCOUNTER 2024-05-21 11:36 | Emergency (ER) | payer BC, SELFPAY ==
--- NOTE | ~2024-05-21 | XR_ITS ---
Lumbosacral Spine: AP and lateral views Clinical History: Pain Findings: The normal lordotic curve is maintained. The vertebral bodies and posterior elements are i ntact. The intervertebral disc spaces are preserved. The sacroiliac joints are normally outlined. Impression: No significant abnormality. Reviewed, dictated and finalized at [facility]. RONMENTAL SCIENCE PROGRAM DIRECTOR Impression: No significant abnormality.
[2024-05-21 12:20] VITALS: BP 150/98; PULSE 83; RESP 16; TEMP 36.2; O2SAT 96
--- NOTE | 2024-05-21 13:15 | ED.GENADULT ---
HPI - General Adult General Chief complaint: Back Pain/Injury Stated complaint: Lower Back pain Source: patient Mode of arrival: ambulatory Limitations: no limitations History of Present Illness HPI narrative: Patient presents for evaluation of low back pain for the last 3 days. She was doing deep cleaning and moving some household items the day before symptom onset. Pain is constant, throbbing, sharp, rated 4/10 in severity. She tried taking Midol for her symptoms. The medication made her drowsy. She tried taking ibuprofen 800mg earlier today. No radicular component. No paresthesias. No urinary symptoms. She went to her chiropractor but has not had improvement in her symptoms. Related Data Allergies Allergy/AdvReac Type Severity Reaction Status Date / Time meperidine AdvReac Mild Itching Verified 05/21/24 12:39 Review of Systems Review of Systems: CONSTITUTIONAL: Denies fever, chills, or sweats. EYES: Denies visual changes, redness, or discharge. ENT: Denies rhinorrhea, congestion, sore throat, or otalgia. CARDIOVASCULAR: Denies chest pain, palpitations, or edema. RESPIRATORY: Denies cough or dyspnea. GASTROINTESTINAL: Denies abdominal pain, nausea, vomiting, or diarrhea. GENITOURINARY: Denies dysuria or hematuria. SKIN: Denies rash or itching. MUSCULOSKELETAL: Reports low back pain. Denies joint pain. NEUROLOGIC: Denies headache, numbness, dizziness, or weakness. PSYCHIATRIC: Denies anxiety or depression. PMFSH Past Medical History Medical History (Updated 05/21/24 @ 14:16 by Dalton Molina, [employer], ) Seasonal allergies Urinary frequency Vision abnormalities Weight gain Headache Migraine with aura Surgical History Surgical History History of cholecystectomy No significant past surgical history Family History Family History Other Arthritis Cancer Diabetes mellitus Heart disease Hypertension Social History Social History Smoking status: Never smoker Alcohol intake: current Alcohol use details: Occasional Gender identity (if verbalized by the patient): Female Exam Narrative: GENERAL: Well-appearing, well-nourished, and in no acute distress. HEAD: Normocephalic, atraumatic. EYES: PERRLA and EOMI. ENT: Nares clear, no rhinorrhea or epistaxis. Mucous membranes moist. Oropharynx without tonsillar hypertrophy exudate or other lesions. Bilateral TMs pearly chang nonbulging NECK: Supple. No adenopathy or masses. No carotid bruits or JVD CHEST: Clear to auscultation. No respiratory distress. No wheezes rales or rhonchi HEART: Regular rate and rhythm. No murmur heard. Normal peripheral pulses. BACK: There is tenderness in the right paraspinous muscle of lumbar spine. Decreased flexion at the hips 2/2 pain ABDOMEN: Soft, nontender, nondistended, normal active bowel sounds. EXTREMITIES: Normal range of motion. No edema. SKIN: Warm, dry, no rash. NEURO: No focal deficits. Alert and oriented x3. PSYCH: Normal mood and affect. Course Course Emergency Course: This is a 44-year-old female who presented for evaluation of low back pain. X ray negative. She has responded well to steroids and muscle relaxers. Through shared decision making opted to proceed with steroids and tramadol. Warm moist heat may help. Follow up with primary care provider. Follow up with primary provider. Go to the ER for worsening symptoms. Pt in agreement with plan of care. Level of Care: Express Care Visit Vital Signs Vital signs: Vital Signs Temperature 36.2 C L 05/21/24 12:20 Pulse Rate 83 05/21/24 12:20 Respiratory Rate 16 05/21/24 12:20 Blood Pressure 150/98 H 05/21/24 12:20 Pulse Oximetry 96 05/21/24 12:20 Oxygen Delivery Room Air 05/21/24 12:20 Temperature 36.2 C L 05/21/24 12:20 Pulse Rate 83 05/21/24 12:20 Respiratory Rate 16 05/21/24 12:20 Blood Pressure 150/98 H 05/21/24 12:20 Pulse Oximetry 96 05/21/24 12:20 Oxygen Delivery Room Air 05/21/24 12:20 Medical Decision Making Vital Signs Vital Signs: Vital Signs Temperature 36.2 C L 05/21/24 12:20 Pulse Rate 83 05/21/24 12:20 Respiratory Rate 16 05/21/24 12:20 Blood Pressure 150/98 H 12/15/24 12:20 Pulse Oximetry 96 05/21/24 12:20 Oxygen Delivery Room Air 05/21/24 12:20 Temperature 36.2 C L 05/21/24 12:20 Pulse Rate 83 05/21/24 12:20 Respiratory Rate 16 05/21/24 12:20 Blood Pressure 150/98 H 05/21/24 12:20 Pulse Oximetry 96 05/21/24 12:20 Oxygen Delivery Room Air 05/21/24 12:20 Imaging Data Radiologist's impression: Ordering Physician: Dalton Molina APRN Date of Service: 05/21/24 Procedure(s): XR lumbar spine 2-3V Accession Number(s): [id number] cc: Dalton Molina APRN; PATIENT RELATIONS LIAISON PHYSICIAN~ Lumbosacral Spine: AP and lateral views Clinical History: Pain Findings: The normal lordotic curve is maintained. The vertebral bodies and posterior elements are intact. The intervertebral disc spaces are preserved. The sacroiliac joints are normally outlined. Impression: No significant abnormality. Discharge Plan Discharge Clinical Impression: Low back strain Patient Disposition: Home, Self-Care Condition: Stable Instructions: Antibiotic Form, Low Back Strain (ED) Patient Language: German Prescriptions: New methylprednisolone [Medrol (Claudy)] 4 mg tablets,dose pack See Rx Instructions .ROUTE .COMPLEX Qty: 21 0RF Rx Instructions: for 6 days tramadol 50 mg tablet 50 mg PO Q8H PRN (Reason: pain) Qty: 15 0RF Follow-up/Referrals: Keyshawn Patino MD [Physician] - Time of Disposition: 14:18
--- OUTSIDE RECORDS SUMMARY | 2024-05-26 02:42 | XMS_ITS | Encounter Summary ---
Author Organization [facility] Address [address] [address] Care Team Providers Care Heavy Equipment Operating Engineer Name Role Phone Unavailable Primary Care Provider Unavailabl e Reason for Visit * Reason Onset Date Comments Follow-up 07/02/2017 Encounter Details Date Type Department Care Team ([facility] Contact Info) Description 07/02/[address] [facility] [address] [id number] Emily Lim Follow-up Social History Tobacco Use Types Packs/Day Years Used Date Smoking Tobacco: Never Smokeless Tobacco: Never Sex and Gender Information Value Date Recorded Sex Assigned at Not on file Gender Identity Not on file Sexual Orientation Not on file documented as of this encounter Plan of Treatment Not on file documented as of this encounter Visit Diagnoses Not on filedocumented in this encounter
--- OUTSIDE RECORDS SUMMARY | 2024-05-26 02:42 | XMS_ITS | Referral Summary ---
Author Organization [facility] Address [address] [place] [address] Care Team Providers Care Staking Press Operator Name Role Phone Unavailable Primary Care Provider Unavailabl e Source Comments [facility],non-owned Affiliates and Associated Physician Practices is amultiple site organization consisting of ambulatory clinics and hospital sitesin [place], [place], [place] and [place]. This disclosure is being madepursuant to the Care Everywhere program and may not contain all information available regarding this patient. Last updated 18.[facility] [employer] Allergies Active Allergy Reactions Criticality Noted Date Comments Meperidine 06/30/2017 Active Problems No known active problems Social History Tobacco Use Types Packs/Day Years Used Date Smoking Tobacco: Never Smokeless Tobacco: Never Sex and Gender Information Value Date Recorded Sex Assigned at Not on file Gender Identity Not on file Sexual Orientation Not on file Last Filed Vital Signs Vital Sign Reading Time Taken Comments Blood Pressure 108/60 06/30/2017 11:02 AM DENTAL HYGIENE TEACHER Pulse 73 06/30/2017 11:02 AM DENTAL HYGIENE TEACHER Temperature 36.7 ??C (98 ??F) 06/30/2017 11:02 AM DENTAL HYGIENE TEACHER Respiratory Rate 16 06/30/2017 11:02 AM DENTAL HYGIENE TEACHER Oxygen Saturation 98% 06/30/2017 11:02 AM DENTAL HYGIENE TEACHER Inhaled Oxygen Concentration - - Weight 120.2 kg (265 lb) 06/30/2017 11:02 AM DENTAL HYGIENE TEACHER Height 172.7 cm (5' 8 ) 06/30/2017 11:02 AM DENTAL HYGIENE TEACHER Body Mass Index 40.29 06/30/2017 11:02 AM DENTAL HYGIENE TEACHER Plan of Treatment Not on file
--- OUTSIDE RECORDS SUMMARY | 2024-05-26 02:42 | XMS_ITS | Clinical Summary ---
Author Organization [facility] Address [address] [place] [address] Care Team Providers Care Riding Teacher Name Role Phone Elle Acuna MD Primary Care Provider Allergies Active Allergy Reactions Criticality Noted Date Comments Meperidine Itching Low 03/21/2019 Itching Medications vitamin b complex tablet Take 1 tablet by mouth daily Active fluticasone propionate (FLONASE) 50 mcg/actuation nasal spray SPRAY 2 SPRAYS INTO EACH NOSTRIL EVERY DAY 16 mL 1 1 Active Additional Information Patient not taking.Reported on 11/28/2021 EluRyng 0.12-0.015 mg/24 hr vaginal ring INSERT 1 RING VAGINALLY DIRECTED. REMOVE AFTER 3 WEEKS & WAIT 7 DAYS BEFORE INSERTING A NEW RING 3 each 4 2 Active topiramate (TOPAMAX) 50 mg tablet TAKE 1 TABLET BY MOUTH EVERY DAY 90 tablet 1 2 Active Active Problems Problem Noted Date Diagnosed Date Morbid obesity with BMI of 50.0-59.9, adult 03/08 Assessment & Plan (09/02/2020 11:20 AM CDT): BMI Follow-up includes: nutrition counseling, exercise counseling and education provided. Start calorie counting, goal 1800 calories per day Increase exercise with goal of 2-1/2 hours per week If struggles to lose weight, could consider increasing to urinate or starting an additional agent. Will check A1c to determine if she would be a candidate for GLP 1 agonists. Assessment & Plan (10/05/2019 8:17 AM CDT): BMI Follow-up includes: nutrition counseling, exercise counseling and education provided. Assessment & Plan (08/25/2019 9:22 AM CDT): BMI Follow-up includes: nutrition counseling, exercise counseling and education provided. Assessment & Plan (08/07/2019 1:42 PM PROGRAM SUPPORT CLERK): BMI Follow-up includes: nutrition counseling, exercise counseling and education provided. Assessment & Plan (07/07/2019 8:38 AM PROGRAM SUPPORT CLERK): BMI Follow-up includes: nutrition counseling, exercise counseling and education provided. Hopeful that Topamax will result in some weight loss for her as well as the primary goal of decreasing her migraine symptoms Assessment & Plan (03/30/2019 8:40 AM CDT): BMI Follow-up includes: nutrition counseling, exercise counseling and education provided. Essential hypertension 03/21/2019 Assessment & Plan (09/02/2020 11:18 AM CDT): BP well controlled Encouraged lifestyle modifications Assessment & Plan (10/05/2019 8:34 AM CDT): Improved with lifestyle modifications Continue to monitor Assessment & Plan (07/07/2019 8:37 AM PROGRAM SUPPORT CLERK): Improved, as she has not exactly certain what she has done to see this improvement Encouraged lifestyle modifications Continue to monitor Assessment & Plan (03/30/2019 9:17 AM CDT): BP above goal Will trial lifestyle modification for 3 months (healthy diet, low Na, increase physical activity) If no improvement at 3 month follow up, will start lisinopril Atypical migraine 03/21/2019 Assessment & Plan (09/02/2020 11:19 AM CDT): Continue topiramate 50 daily Suspect the tingling she experienced is related to this. Could consider Neurology consult Will also check A1c, B12 and iron levels Assessment & Plan (10/05/2019 8:34 AM CDT): Continue Topamax 50 daily Assessment & Plan (07/07/2019 8:33 AM PROGRAM SUPPORT CLERK): Start Topamax as symptoms are debilitating when they occur Sumatriptan PRN Follow up 3 monts Resolved Problems Problem Noted Date Diagnosed Date Resolved Date Left leg pain 10/05/2019 09/01/2020 Assessment & Plan (10/05/2019 8:35 AM CDT): With left leg swelling Has had negative LE duplex Will get xrays Recommend tylenol/NSAIDs prn, ice, compression sleeve Petechial eruption 08/25/2019 Assessment & Plan (08/25/2019 10:09 AM CDT): Possible cellulitis - will treat empirically with Bactrim Concern for vasculitis or TTP though less likely. Will check CBC, CMP, SHASTA, ANCA, C3 and C4 Fever 08/07/2019 08/25/2019 Assessment & Plan (08/07/2019 2:00 PM PROGRAM SUPPORT CLERK): Likely viral illness given constellation of symptoms including respiratory and GI symptosm Recommend fluids, rest, bland diet Call if no improvement or symptoms worsen Encounter for initial prescr iption of vaginal ring hormonal contraceptive 07/07/2019 09/01/2020 Assessment & Plan (07/07/2019 8:33 AM PROGRAM SUPPORT CLERK): Last sexually active 5 days ago, took morning after pill Urine hcg today Patient will wait to start Nuvaring until after next period Paresthesias/numbness 03/30/20192020 Assessment & Plan (03/30/2019 9:17 AM CDT): Most likely migraine aura Given abrupt onset of symptoms which are different from patient's typical migraine pattern, will obtain brain MRI Trial Sumatriptan Consider neurology referral if symptoms persistent Immunizations Name Administration Dates Next Due Influenza, Quadrivalent, Split, Intramuscular ,02/21/2018 Influenza, Quadrivalent, Spl it, Preservative Free, Intramuscular 02/25/2020 Influenza, Unspecified 02/25/2020 Tdap 02/21/2018 Surgical History Surgery Date Site/Laterality Comments CHOLECYSTECTOMY 06/07/2004 - 06/06/2005 Medical History Medical History Date Comments Hypertension Muscle spasms of neck Posterior neck and cranium Numbness Family History Medical History Relation Name Comments Hypertension Brother Heart disease Maternal Grandfather Hypertension Mother Kidney disease Mother Heart disease Paternal Grandfather Breast cancer Paternal Grandmother Diabetes Sister Relation Name Status Comments Brother Maternal Grandfather Mother Paternal Grandfather Paternal Grandmother Sister Other sister has type 1 diabetes Social History Tobacco Use Types Packs/Day Years Used Date Smoking Tobacco: Never Smokeless Tobacco: Never Alcohol Use Standard Drinks/Week Comments Yes 0 (1 standard drink = 0.6 oz pur e alcohol) socially PHQ-2 Answer Date Recorded PHQ-2 Total Score (If total score is 3 or more points, staff should administer the PHQ-9) 0 09/02/2020 Personal Safety Answer Date Recorded Getting School Help Needed Not on file 08/21 Comments No Sex and Gender Information Value Date Recorded Sex Assigned at Not on file Legal Sex Female 4:09 PM CDT Gender Identity Female 02/15/2021 1:09 PM CDT Sexual Orientation Straight 02/15/2021 1: 09 PM CDT Obstetrics History Last Filed Vital Signs Vital Sign Reading Time Taken Comments Blood Pressure 133/93 09/19/2022 12:05 PM CDT Pulse 84 09/19/2022 12:05 PM CDT Temperature 37.1 ??C (98.7 ??F) 09/19/2022 12:05 PM C DT Respiratory Rate 20 09/19/2022 12:05 PM CDT Oxygen Saturation 100% 09/19/2022 12:05 PM CDT Inhaled Oxygen Concentration - - Weight 158.8 kg (350 lb) 09/19/2022 12:05 PM CDT Height 175.3 cm (5' 9 ) 09/19/2022 12:05 PM CDT Body Mass Index 51.69 09/19/2022 12:05 PM CDT Plan of Treatment Health Maintenance Due Date Last Done Comments Cervical Cancer Screening 1980 Hepatitis C Screening 1980 Varicella Vaccines (1 of 2 - 13+ 2-dose series) 01/04/1993 Hepatitis B Screening 01/04/1998 Depression Screening 09/02/2021 09/02/2020, 10/05/2019, 08/07/2019, Additional history exists Regular Well Visit/Exam 18-64 09/02/2021 09/02/2020 Breast Cancer Screening-Mammogram 09/23/2021 09/23/2020 Influenza Vaccine (#1) 2024 , 02/25/2020, 02/21/2019, Additional history exists DTaP/Tdap/Td Vaccine (2 - Td or Tdap) 02/22/2028 02/21/2018 HPV Vaccines Aged Out No longer eligi ble based on patient's age to complete this topic Pneumococcal vaccine <65 Aged Out No longer eligible based on patient's age to complete this topic Procedures Procedure Name Priority Date/Time Associated Diagnosis Comments SCREENING MAMMOGRAM BILATERAL W ENRIQUE Schedule Routine, Read Routine (OP Routine) 09/23/2020 2:11 PM CDT Encounter for screening mammogram for malignant neoplasm of breast from Last 3 Months or Most Recently Relevant to Health Maintenance Results * Screening Mammogram Bilateral W Enrique (09/23/2020 2:11 PM CDT) Anatomical Region Laterality Modality Breast Bilateral Mammography Narrative 09/25/2020 12:17 PM CDT Mammogram Technique: Bilateral Digital Breast Tomosynthesis, Bilateral C-view 2D Screening mammogram. ??Views obtained: ??bilateral craniocaudal and bilateral mediolateral oblique. ??Computer Aided Detection was performed. Mammogram Findings: This is a baseline study. The breasts are almost entirely fatty. There is no suspicious abnormality in either breast. Impression: There is no mammographic evidence of malignancy. Annual screening mammography is recommended. OVERALL FINAL ASSESSMENT: BI-RADS CATEGORY 1: ??Negative. Procedure Note Joann Hernandez MD - 09/25/2020 Mammogram Technique: Bilateral Digital Breast Tomosynthesis, Bilateral C-view 2D Screening mammogram. Views obtained: bilateral craniocaudal and bilateral mediolateral oblique. Computer Aided Detection was performed. Mammogram Findings: This is a baseline study. The breasts are almost entirely fatty. There is no suspicious abnormality in either breast. Impression: There is no mammographic evidence of malignancy. Annual screening mammography is recommended. OVERALL FINAL ASSESSMENT: BI-RADS CATEGORY 1: Negative. Elle Acuna MD IMG MAMMO PROCEDURES F inal Result from Last 3 Months or Most Recently Relevant to Health Maintenance Insurance [facility] Address: [id number] [place] [address] [facility] [id number] Care Teams Riding Teacher Relationship Specialty Start Date End Date Elle Acuna MD PCP - General Internal Medicine 03/30/19
--- OUTSIDE RECORDS SUMMARY | 2024-05-26 02:42 | XMS_ITS | Clinical Summary ---
Author Organization [facility] [employer] Address [address] [place] [address] Care Team Providers Care Volunteer Services Coordinator Name Role Phone Unavailable Primary Care Provider Unavailabl e Source Comments [facility],non-owned Affiliates and Associated Physician Practices is amultiple site organization consisting of ambulatory clinics and hospital sitesin [place], [place], [place] and [place]. This disclosure is being madepursuant to the Care Everywhere program and may not contain all information available regarding this patient. Last updated 18.[facility] [employer] Allergies Active Allergy Reactions Criticality Noted Date [...] Comments Blood Pressure 108/60 06/30/2017 11:02 AM JAMMER OPERATOR Pulse 73 06/30/2017 11:02 AM JAMMER OPERATOR Temperature 36.7 ??C (98 ??F) 06/30/2017 11:02 AM JAMMER OPERATOR Respiratory Rate 16 06/30/2017 11:02 AM JAMMER OPERATOR Oxygen Saturation 98% 06/30/2017 11:02 AM JAMMER OPERATOR Inhaled Oxygen Concentration - - Weight 120.2 kg (265 lb) 06/30/2017 11:02 AM JAMMER OPERATOR Height 172.7 cm (5' 8 ) 06/30/2017 11:02 AM JAMMER OPERATOR Body Mass Index 40.29 06/30/2017 11:02 AM JAMMER OPERATOR Plan of Treatment Health Maintenance Due Date Last Done Comments LIPID TESTING 1980 MAMMOGRAM 1980 PAP SMEAR 1980 HIV SCREENING 01/04/1995 HEPATITIS C SCREENING 12/31/1997 DTAP/TDAP/TD VACCINES (1 - Tdap) 01/04/1999 HEPATITIS B VACCINE (1 of 3 - 19+ 3-dose series) 01/04/1999 DEPRESSION SCREENING 06/07/2023 COVID-19 VACCINE (1 - 2023-2 5 season) 2024 INFLUENZA VACCINE (#1) 2024 ZOSTER VACCINE (1 of 2) 01/04/2030 HIB VACCINE Aged Out No longer eligi ble based on patient's age to complete this topic HPV VACCINE Aged Out No longer eligi ble based on patient's age to complete this topic MENINGOCOCCAL VACCINE Aged Out No sunny asif eligible based on patient's age to complete this topic PNEUMOCOCCAL VACCINE Aged Out No long er eligible based on patient's age to complete this topic
--- OUTSIDE RECORDS SUMMARY | 2024-05-26 02:42 | XMS_ITS | Encounter Summary ---
Author Organization [facility] Address [address] [place] [address] Care Team Providers Care Inside Sales Account Manager Name Role Phone Unavailable Primary Care Provider Unavailabl e Reason for Visit * Reason Comments Sore Throat for 2 weeks Encounter Details Date Type Department Care Team (Late st Contact Info) Description 06/30/2017 11:00 AM MASTER PLUMBER Office Visit [facility] [address] [address] Provider, Denisa [facility] Acute pharyngitis, unspecified etiology (Primary Dx); Acute maxillary sinusitis, recurrence not specified Social History Tobacco Use Types Packs/Day Years Used Date Smoking Tobacco: Never Smokeless Tobacco: Never Sex and Gender Information Value Date Recorded Sex Assigned at Not on file Gender Identity Not on file Sexual Orientation Not on file documented as of this encounter Last Filed Vital Signs Vital Sign Reading Time Taken Comments Blood Pressure 108/60 06/30/2017 11:02 AM MASTER PLUMBER Pulse 73 06/30/2017 11:02 AM MASTER PLUMBER Temperature 36.7 ??C (98 ??F) 06/30/2017 11:02 AM MASTER PLUMBER Respiratory Rate 16 06/30/2017 11:02 AM MASTER PLUMBER Oxygen Saturation 98% 06/30/2017 11:02 AM MASTER PLUMBER Inhaled Oxygen Concentration - - Weight 120.2 kg (265 lb) 06/30/2017 11:02 AM MASTER PLUMBER Height 172.7 cm (5' 8 ) 06/30/2017 11:02 AM MASTER PLUMBER Body Mass Index 40.29 06/30/2017 11:02 AM MASTER PLUMBER documented in this encounter Patient Instructions * Patient Instructions* Jacoby Sam, PATTY-FARMWORKER CRANBERRY - 06/30/2017 11:24 AM MASTER PLUMBER -Take and finish your prescriptions as directed. -If not already using, please start nasal saline wash, either Neti Pot or Sinus Rinse DAILY or a saline nasal spray 3-4 times a day. -Use guaifenesin expectorants (Maximum Strength Mucinex, Robitussin, store brand) to loosen secretions. -For cough you can use dextromethorphan (Delsym syrup, Robitussin cough capsules or store brand). Dextromethorphan is considered safe for and breast feeding women. -Increase fluid intake: drink 2 liters (2 quarts) of non-caffeinated, non- alcoholic beverages daily, drinking alcohol causes nasal and sinus membranes to swell -Steam inhalation and warm compresses to face often help relieve pressure -Avoid allergens and excessively dry heat -Sleep with head of bed elevated to encourage drainage. -Use of a humidifier if environment is heated by dry forced - air system -Avoid smoking, second-hand smoke and air pollutants. -You may try decongestants such as Sudafed (purchase at pharmacy) or Sudafed PE for congestion relief. Decongestants can keep you awake at night. Do not use decongestants if you have high blood pressure or if you are Pseudoephedrine (Sudafed) and Phenylephrine (Sudafed PE) are generally con sidered safe for breast feeding mothers. -If you are not improving or worsening, or develop facial swelling,in the next 3-5 days you must RETURN to the clinic, go to your PCP, or Urgent Care/ER to be SEEN and reevaluated. No further prescriptions or refills will be given by phone without another evaluation. ER PLUMBER documented in this encounter Progress Notes * Jacoby Sam APRN-CNP - 06/30/2017 11:22 AM CST Subjective: Iveth Montoya is a 37 y.o. female who presents for evaluation: Chief Complaint Patient presents with ??? Sore Throat for 2 weeks Primary Care Physician is No primary care provider on file.. Symptoms include congestion, sore throat and cough. Onset of symptoms was 2 weeks ago, gradually worsening since that time. sore throat, congestion, bilateral ear pressure/pain, sinus pressure, productive cough Color: minimal clear. She is drinking plenty of fluids. Evaluation to date: none. Treatment to date: none Allergies Allergen Reactions ??? Demerol [Meperidine] Outpatient Prescriptions Marked as Taking for the 06/30/17 encounter (Office Visit) with Provider, Denisa Howard Medication Sig ??? amoxicillin-clavulanate (AUGMENTIN) 875-125 MG tablet Take 1 tablet by mouth 2 times daily withmorning and evening meal for 10 days No past medical history on file. Social History Social History ??? Marital status: Single Spouse name: N/A ??? Number of children: N/A ??? Years of education: N/A Occupational History ??? Not on file. Social History Main Topics ??? Smoking status: Never Smoker ??? Smokeless tobacco: Never Used ??? Alcohol use Not on file ??? Drug use: Not on file ??? Sexual activity: Not on file Other Topics Concern ??? Not on file Social History Narrative ??? No narrative on file Medications reviewed. Review of Systems Constitutional: Negative for fatigue, fevers, chills. Eyes: Negative Ears, nose, mouth, and throat: Positive for earaches bilaterally, sinus trouble, tonsillitis Respiratory: Negative for shortness of breath, dyspnea on exertion, wheezing Cardiovascular: Negative Objective: BP 108/60 (BP SITE: LEFT ARM, BP POSITION: SITTING, BP CUFF SIZE: Large Adult) Pulse 73 Temp 98 ??F(Oral) Resp 16 Ht 1.727 m (5' 8 ) Wt 120.2 kg (265 lb) SpO2 98% BMI 40.29 kg/m2 Skin: Physical Exam Exam General appearance: alert, cooperative, no distress Eyes: sclera and conjunctiva clear, EOMI and PERRLA, lids normal Ears: canals clear, tympanic membranes normal, hearing intact to voice Nose: nares open; no septal deviation is noted, mucosa erythematous and swollen, purulent rhinorrhea, maxillary tenderness bilaterally Throat: no mucous membrane abnormalities, moderate oropharyngeal erythema, no exudates or hypertrophy. PND Neck: range of motion is intact, no masses, thyroid not enlarged, no adenopathy Lungs: breath sounds normal and symmetric; no rales or wheezes Heart: regular rhythm, normal S1 and S2, without murmurs, gallops or rubs Assessment: . Encounter Diagnoses Name Primary? Acute pharyngitis, unspecified etiology Yes ??? Acute maxillary sinusitis, recurrence not specified Plan: Discussed the dx and tx of sinusitis. -Take and finish your prescriptions as directed. -If not already using, please start nasal saline wash, either Neti Pot or Sinus Rinse DAILY or a saline nasal spray 3-4 times a day. -Use guaifenesin expectorants (Maximum Strength Mucinex, Robitussin, store brand) to loosen secretions. -For cough you can use dextromethorphan (Delsym syrup, Robitussin cough capsules or store brand). Dextromethorphan is considered safe for and breast feeding women. -Increase fluid intake: drink 2 liters (2 quarts) of non-caffeinated, non- alcoholic beverages daily, drinking alcohol causes nasal and sinus membranes to swell -Steam inhalation and warm compresses to face often help relieve pressure -Avoid allergens and excessively dry heat -Sleep with head of bed elevated to encourage drainage. -Use of a humidifier if environment is heated by dry forced - air system -Avoid smoking, second-hand smoke and air pollutants. -You may try decongestants such as Sudafed (purchase at pharmacy) or Sudafed PE for congestion relief. Decongestants can keep you awake at night. Do not use decongestants if you have high blood pressure or if you are Pseudoephedrine (Sudafed) and Phenylephrine (Sudafed PE) are generally con sidered safe for breast feeding mothers. -If you are not improving or worsening, or develop facial swelling,in the next 3-5 days you must RETURN to the clinic, go to your PCP, or Urgent Care/ER to be SEEN and reevaluated. No further prescriptions or refills will be given by phone without another evaluation. Continue to follow up with No primary care provider on file. as directed. After Visit Summary reviewed with patient. The patient indicates understanding of these issues and agrees with the plan. Patient discharged to Home .Jacoby Sam APRN-DELMAR 06/30/2017 11:22 AM Orders Placed This Encounter ??? STREP A SCREEN - POINT OF CARE (AMB) STL ??? amoxicillin-clavulanate (AUGMENTIN) 875-125 MG tablet Sig: Take 1 tablet by mouth 2 times daily with morning and evening meal for 10 days Dispense: 20 tablet Refill: 0 Recent Results (from the past 24 hour(s)) STREP A SCREEN - POINT OF CARE (AMB) STL Collection Time: 06/30/17 12:00 AM Result Value Ref Range Strep A Rapid Negative Negative Strep A INTERNAL CONTROL Present Lot Number [id number] Expiration Date [id number] ER PLUMBER documented in this encounter Plan of Treatment Not on file documented as of this encounter Procedures Procedure Name Priority Date/Time Associated Diagnosis Comments STREP A SCREEN - POINT OF CARE (AMB) STL Routine 06/30/2017 Acute pharyngitis, unspecified etiology documented in this encounter Results * STREP A SCREEN - POINT OF CARE (AMB) STL (06/30/2017) Strep A Rapid POCT Negative Negative Strep A Internal Control Present Lot # [id number] Expiration Date [id number] Throat ENTIRE THROAT (SURFACE REGION OF NECK) / Unknown 06/30/2017 Jacoby [facility] - POINT OF CARE ORDERABLES documented in this encounter Visit Diagnoses Diagnosis Acute pharyngitis, unspecified etiology- Primary Acute maxillary sinusitis, recurrence not specified documented in this encounter
--- OUTSIDE RECORDS SUMMARY | 2024-05-26 02:42 | XMS_ITS | Patient Health Summary ---
Author Organization [facility] [employer] Address [address] [place] [address] Care Team Providers Care Data Integrity Analyst Name Role Phone Unavailable Primary Care Provider Unavailabl e Note from [facility],non-owned Affiliates and Associated Physician Practices is amultiple site organization consisting of ambulatory clinics and hospital sitesin [place], [place], [place]. This disclosure is being madepursuant to the Care Everywhere program and may not contain all information available regarding this patient. Last updated 18.[facility] [employer] Allergies * Meperidine Active Problems No known active problems Social History Tobacco Use Types Packs/Day Years Used Date Smoking Tobacco: Never Smokeless Tobacco: Never Sex and Gender Information Value Date Recorded Sex Assigned at Not on file Gender Identity Not on file Sexual Orientation Not on file Last Filed Vital Signs Vital Sign Reading Time Taken Comments Blood Pressure 108/60 06/30/2017 11:02 AM LABOR/EXCAVATOR Pulse 73 06/30/2017 11:02 AM LABOR/EXCAVATOR Temperature 36.7 ??C (98 ??F) 06/30/2017 11:02 AM LABOR/EXCAVATOR Respiratory Rate 16 06/30/2017 11:02 AM LABOR/EXCAVATOR Oxygen Saturation 98% 06/30/2017 11:02 AM LABOR/EXCAVATOR Inhaled Oxygen Concentration - - Weight 120.2 kg (265 lb) 06/30/2017 11:02 AM LABOR/EXCAVATOR Height 172.7 cm (5' 8 ) 06/30/2017 11:02 AM LABOR/EXCAVATOR Body Mass Index 40.29 06/30/2017 11:02 AM LABOR/EXCAVATOR Procedures * STREP A SCREEN - POINT OF CARE (AMB) STL(Performed 06/30/2017) Performed for Acute pharyngitis, unspecified etiology Results * STREP A SCREEN - POINT OF CARE (AMB) STL (06/30/2017) Strep A Rapid POCT Negative Negative Strep A Internal Control Present Lot # [id number] Expiration Date [id number] Throat ENTIRE THROAT (SURFACE REGION OF NECK) / Unknown 06/30/2017 Jacoby Sam INSPECTOR RECEIVING-CLINICAL RESOURCE DIRECTOR LAB - POINT OF CARE ORDERABLES
--- OUTSIDE RECORDS SUMMARY | 2024-05-26 02:43 | XMS_ITS | Encounter Summary ---
Author Organization [facility] Healthcare Address [address] [place] [address] Care Team Providers Care Acid Regenerator Name Role Phone Elle Acuna MD Primary Care Provider Encounter Details Date Type Department Care Team (Late st Contact Info) Description 02/15/2021 Patient Self-Triage [facility] [address] [place] [address] Mycmindyt, Generic Provider [address] [place] [address] Social History Tobacco Use Types Packs/Day Years Used Date Smoking Tobacco: Never Smokeless Tobacco: Never Alcohol Use Standard Drinks/Week Comments Yes 0 (1 standard drink = 0.6 oz pur e alcohol) socially PHQ-2 Answer Date Recorded PHQ-2 Total Score (If total score is 3 or more points, staff should administer the PHQ-9) 0 09/02/2020 Comments No Sex and Gender Information Value Date Recorded Sex Assigned at Not on file Legal Sex Female 4:09 PM CDT Gender Identity Female 02/15/2021 1:09 PM CDT Sexual Orientation Straight 02/15/2021 1: 09 PM CDT documented as of this encounter Plan of Treatment Not on file documented as of this encounter Visit Diagnoses Not on filedocumented in this encounter Care Teams Acid Regenerator Relationship Specialty Start Date End Date Elle Acuna MD PCP - General Internal Medicine 03/30/19 documented as of this encounter
--- OUTSIDE RECORDS SUMMARY | 2024-05-26 02:43 | XMS_ITS | Encounter Summary ---
Author Organization [facility] Care Team Providers Care Senior Designer Name Role Phone Elle Acuna MD Primary Care Provider Encounter Details Date Type Department Care Team (Latest Contact Info) Description 08/07/2019 Travel Social History Tobacco Use Types Packs/Day Years Used Date Smoking Tobacco: Never Smokeless Tobacco: Never Alcohol Use Standard Drinks/Week Comments Yes 0 (1 standard drink = 0.6 oz pur e alcohol) socially PHQ-2 Answer Date Recorded PHQ-2 Score 0 03/30/2019 Comments No Sex and Gender Information Value Date Recorded Sex Assigned at Not on file Legal Sex Female 4:09 PM CDT Gender Identity Female 02/15/2021 1:09 PM CDT Sexual Orientation Straight 02/15/2021 1: 09 PM CDT documented as of this encounter Plan of Treatment Not on file documented as of this encounter Visit Diagnoses Not on filedocumented in this encounter Care Teams Senior Designer Relationship Specialty Start Date End Date Elle Acuna MD PCP - General Internal Medicine 03/30/19 documented as of this encounter
--- OUTSIDE RECORDS SUMMARY | 2024-05-26 02:43 | XMS_ITS | Encounter Summary ---
Author Organization [facility] Healthcare Address [address] [place] [address] Care Team Providers Care Service Order Dispatcher Name Role Phone Elle Acuna MD Primary Care Provider Encounter Details Date Type Department Care Team (Late st Contact Info) Description 02/26/2020 Patient Self-Triage [facility] Health[facility]/ Phys[facility] [address] [place] [address] Mycmindyt, Generic Provider [address] [place], [place] [id number] Social History Tobacco Use Types Packs/Day Years Used Date Smoking Tobacco: Never Smokeless Tobacco: Never Alcohol Use Standard Drinks/Week Comments Yes 0 (1 standard drink = 0.6 oz pur e alcohol) socially PHQ-2 Answer Date Recorded PHQ-2 Total Score 0 10/05/2019 Comments No Sex and Gender Information Value Date Recorded Sex Assigned at Not on file Legal Sex Female 4:09 PM CDT Gender Identity Female 02/15/2021 1:09 PM CDT Sexual Orientation Straight 02/15/2021 1: 09 PM CDT documented as of this encounter Plan of Treatment Not on file documented as of this encounter Visit Diagnoses Not on filedocumented in this encounter Care Teams Service Order Dispatcher Relationship Specialty Start Date End Date Elle Acuna MD PCP - General Internal Medicine 03/30/19 documented as of this encounter
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
--- OUTSIDE RECORDS SUMMARY | 2024-05-26 02:43 | XMS_ITS | Encounter Summary ---
Author Organization [facility] Address [address] [place] [address] Care Team Providers Care [employer] Chemistry Teacher Name Role Phone Elle Acuna MD Primary Care Provider Reason for Visit * Reason Comments Numbness Influenza Exposure Encounter Details Date Type Department Care Team (Late st Contact Info) Description 07/07/2019 8:00 AM TELEVISION AUDIO ENGINEER Office Visit [facility] [address] [place] [phone] Elle Acuna MD [address] [place] [address] [place] [id number] Atypical migraine (Primary Dx); Essential hypertension; Encounter for initial prescription of vaginal ring hormonal contraceptive; Morbid obesity with BMI of 45.0-49.9, adult ([facility]) Social History Tobacco Use Types Packs/Day Years [...] PM CDT documented as of this encounter Last Filed Vital Signs Vital Sign Reading Time Taken Comments Blood Pressure 112/74 07/07/2019 8:12 AM TELEVISION AUDIO ENGINEER Pulse 80 07/07/2019 8:12 AM TELEVISION AUDIO ENGINEER Temperature 37.1 ??C (98.8 ??F) 07/07/2019 8:12 AM CS T Respiratory Rate - - Oxygen Saturation 98% 07/07/2019 8:12 AM TELEVISION AUDIO ENGINEER Inhaled Oxygen Concentration - - Weight 141.5 kg (312 lb) 07/07/2019 8:12 AM TELEVISION AUDIO ENGINEER Height 172.7 cm (5' 8 ) 07/07/2019 8:12 AM TELEVISION AUDIO ENGINEER Body Mass Index 47.44 07/07/2019 8:12 AM TELEVISION AUDIO ENGINEER documented in this encounter Ordered Prescriptions Prescription Sig Dispense Quantity Refills Last Filled Start Date End Date topiramate (TOPAMAX) 50 mg tabletIndications: Migraine Prevention Take 1 tablet (50 mg total) by mouth daily 30 tablet 3 07/07/2019 0 etonogestrel-ethin yl estradiol (NuvaRing) 0.12-0.015 mg/24 hr vaginal ringIndications:Pr egnancy Contraception Insert vaginally and leave in place for 3 consecutive weeks, then remove for 1 week. 1 each 12 07/07/2019 1 oseltamivir (TAMIFLU) 75 mg capsule Take 1 capsule (75 mg total) by mouth 2 (two) times a day for 5 days 10 capsule 07/07/2019 0 documented in this encounter Progress Notes * Elle Acuna MD - 07/07/2019 8:00 AM CST Iveth Montoya 1980 Chief Complaint Patient presents with ??? Numbness ??? Influenza Exposure Ms. Montoya returns for follow up of numbness/tingling and hypertension. Her blood pressure is significantly improved today which surprises her. She did not necessarily do anything to complex this. She is just this week starting a new diet. She has not been exercising. The symptoms of numbness and tingling that she was having significantly improved after taking sumatriptan a couple of times. She does still get them the week after her period ends and they are fairlydistressing when they do hit her. Makes it difficult for her to work and she feels unsafe driving. Brain MRI obtained in April was normal. She also was recently exposed to someone who was ill then later diagnosed B. Today, she woke up feeling worse than usual with headache, increased sinus pressure, and nausea. She is concerned she is getting flu and interested in treatment. She denies any fevers, chills, body aches, cough. Review of Systems Constitutional: Negative for fatigue and unexpected weight change. HENT: Positive for sinus pressure. Negative for hearing loss and trouble swallowing. Eyes: Negative for visual disturbance. Respiratory: Negative for cough and shortness of breath. Cardiovascular: Negative for chest pain, palpitations and leg swelling. Gastrointestinal: Positive for nausea. Negative for abdominal pain. Endocrine: Negative for polydipsia and polyuria. Genitourinary: Negative for dysuria and hematuria. Musculoskeletal: Negative for back pain. Skin: Negative for rash. Neurological: Positive for headaches. Negative for light-headedness. Hematological: Negative for adenopathy. Psychiatric/Behavioral: Negative for dysphoric mood and suicidal ideas. BMI Body mass index is 47.44 kg/m??. Vitals BP 112/74 (BP Location: Left arm, Patient Position: Sitting) Pulse 80 Temp 37.1 ??C (98.8 ??F) (Oral) Ht 172.7 cm (5' 8 ) Wt (!) 141.5 kg (312 lb) LMP 06/13/2019 (Exact Date) SpO2 98% BMI 47.44 kg/m?? Physical Exam Vitals signs reviewed. Constitutional: Appearance: Normal appearance. HENT: Head: Normocephalic and atraumatic. Eyes: Conjunctiva/sclera: Conjunctivae normal. Neck: Musculoskeletal: Normal range of motion. Cardiovascular: Rate and Rhythm: Normal rate. Pulmonary: Effort: Pulmonary effort is normal. Skin: General: Skin is warm and dry. Neurological: General: No focal deficit present. Mental Status: She is alert and oriented to person, place, and time. Psychiatric: Mood and Affect: Mood normal. Behavior: Behavior normal. No notes on file Assessment and Plan Diagnoses and all orders for this visit: Atypical migraine (Primary) Assessment & Plan: Start Topamax as symptoms are debilitating when they occur Sumatriptan PRN Follow up 3 monts Essential hypertension Assessment & Plan: Improved, as she has not exactly certain what she has done to see this improvement Encouraged lifestyle modifications Continue to monitor Encounter for initial prescription of vaginal ring hormonal contraceptive Assessment & Plan: Last sexually active 5 days ago, took morning after pill Urine hcg today Patient will wait to start Nuvaring until after next period Orders: - POCT hCG, urine Morbid obesity with BMI of 45.0-49.9, adult ([facility]) Assessment & Plan: BMI Follow-up includes: nutrition counseling, exercise counseling and education provided. Hopeful that Topamax will result in some weight loss for her as well as the primary goal of decreasing her migraine symptoms Other orders - oseltamivir (TAMIFLU) 75 mg capsule; Take 1 capsule (75 mg total) by mouth 2 (two) times a day for 5 days - etonogestrel-ethinyl estradiol (NuvaRing) 0.12-0.015 mg/24 hr vaginal ring; Insert vaginally and leave in place for 3 consecutive weeks, then remove for 1 week. - topiramate (TOPAMAX) 50 mg tablet; Take 1 tablet (50 mg total) by mouth daily VISION AUDIO ENGINEER documented in this encounter Miscellaneous Notes * Assessment & Plan Note - Elle Acuna MD - 07/07/2019 8:37 AM TELEVISION AUDIO ENGINEER Associated Problem(s): Essential hypertension Improved, as she has not exactly certain what she has done to see this improvement Encouraged lifestyle modifications Continue to monitor VISION AUDIO ENGINEER VISION AUDIO ENGINEER * Assessment & Plan Note - Elle Acuna MD - 07/07/2019 8:33 AM TELEVISION AUDIO ENGINEER Associated Problem(s): Atypical migraine Start Topamax as symptoms are debilitating when they occur Sumatriptan PRN Follow up 3 monts VISION AUDIO ENGINEER * Assessment & Plan Note - Elle Acuna MD - 07/07/2019 8:32 AM TELEVISION AUDIO ENGINEER Associated Problem(s): Encounter for initial prescription of vaginal ring hormonal contraceptive (Resolved 09/01/2020) Last sexually active 5 days ago, took morning after pill Urine hcg today Patient will wait to start Nuvaring until after next period VISION AUDIO ENGINEER * Assessment & Plan Note - Santos Romano MA - 07/07/2019 8:14 AM CSTAssociated Problem(s): Morbid obesity with BMI of 50.0-59.9, adult ([facility]) BMI Follow-up includes: nutrition counseling, exercise counseling and education provided. Hopeful that Topamax will result in some weight loss for her as well as the primary goal of decreasing her migraine symptoms VISION AUDIO ENGINEER VISION AUDIO ENGINEER documented in this encounter Plan of Treatment Not on file documented as of this encounter Procedures Procedure Name Priority Date/Time Associated Diagnosis Comments POCT HCG, URINE Routine 07/07/2019 8:58 AM TELEVISION AUDIO ENGINEER Encounter for initial prescription of vaginal ring hormonal contraceptive documented in this encounter Results * POCT hCG, urine (07/07/2019 8:58 AM TELEVISION AUDIO ENGINEER) HCG, ur, POC Negative Lot Number [id number] QC Backgroud Clear Acceptable QC Control Line Acceptable Urine 07/07/2019 8:58 AM TELEVISION AUDIO ENGINEER Elle Acuna MD POINT OF CARE TEST ORD ERABLES Final Result documented in this encounter Visit Diagnoses Diagnosis Atypical migraine- Primary Other forms of migraine, without mention of intractable migraine without mention of status migrainosus Essential hypertension Unspecified essential hypertension Encounter for initial prescription of vaginal ring hormonal contraceptive Morbid obesity with BMI of 45.0-49.9, adult ([facility]) documented in this encounter Care Teams [employer] Chemistry Teacher Relationship Specialty Start Date End Date Elle Acuna MD PCP - General Internal Medicine 03/30/19 documented as of this encounter
--- OUTSIDE RECORDS SUMMARY | 2024-05-26 02:43 | XMS_ITS | Encounter Summary ---
Author Organization [facility] Address [address] [place] [address] Care Team Providers Care Info Print Press Operator Name Role Phone Elle Acuna MD Primary Care Provider Encounter Details Date Type Department Care Team (Late st Contact Info) Description 04/20/2019 Telephone [facility] [address] [place] [phone] Elle Acuna MD [address] [place] [address] [place] [address] Social History Tobacco Use Types Packs/Day Years [...] PM CDT documented as of this encounter Miscellaneous Notes * Telephone Encounter - Santos Romano MA - 04/20/2019 4:25 PM CST Spoke with patient and informed of brain MRI results. Patient will keep follow up in June. EY SCOUT documented in this encounter Plan of Treatment Not on file documented as of this encounter Visit Diagnoses Not on filedocumented in this encounter Care Teams Info Print Press Operator Relationship Specialty Start Date End Date Elle Acuna MD PCP - General Internal Medicine 03/30/19 documented as of this encounter
--- OUTSIDE RECORDS SUMMARY | 2024-05-26 02:43 | XMS_ITS | Encounter Summary ---
Author Organization [facility] Address [address] [place] [address] Care Team Providers Care Tawer Name Role Phone Elle Acuna MD Primary Care Provider Reason for Referral * Diagnostic Imaging (Routine) - Closed Specialty Diagnoses / Procedures Referred By Abebe saldivar Referred To Contact Radiology Diagnoses Paresthesias/numbness Procedures MRI Brain W WO Contrast Elle Acuna MD Phone: tel: fax: [place] [address] [address] [place] [phone] Referral ID Status Reason Start Date Expiration Date Visits Re quested Visits Authorized [id number] Closed 03/30/2019 10/08/2020 1 1 OARD OPERATOR Reason for Visit * Diagnostic Imaging (Routine) - Closed Specialty Diagnoses / Procedures Referred By Abebe saldivar Referred To Contact Radiology Diagnoses Paresthesias/numbness Procedures MRI Brain W WO Contrast Elle Acuna MD Phone: tel: fax: [place] [address] [address] [place] [phone] Referral ID Status Reason Start Date Expiration Date Visits Re quested Visits Authorized [id number] Closed 03/30/2019 10/08/2020 1 1 Encounter Details Date Type Department Care Team (Latest Contact Info) Description 04/19/2019 2:50 PM KEYBOARD OPERATOR - 04/19/2019 11:59 PM KEYBOARD OPERATOR Hospital Encounter [facility] [phone] [place] [phone] Elle Acuna MD [address] [place] [address] [place] [address] Paresthesias/numbne ss Discharge Disposition: Discharge to home or self care Social History Tobacco Use Types Packs/Day Years [...] PM CDT documented as of this encounter Medications at Time of Discharge vitamin b complex tablet Take 1 tablet by mouth daily SUMAtriptan (IMITREX) 50 mg tabletIndication s:Migraine Take 1 tablet (50 mg total) by mouth once as needed for migraine May repeat after 2 hours. 9 tablet 5 03/30/2019 03/29/2020 documented as of this encounter Discharge Disposition Disposition Code Departure Means Destination Discharge to home or self care documented in this encounter Plan of Treatment Not on file documented as of this encounter Procedures Procedure Name Priority Date/Time Associated Diagnosis Comments MRI BRAIN W WO CONTRAST Schedule Routine, Read Routine (OP Routine) 04/19/2019 3:47 PM KEYBOARD OPERATOR Paresthesias/numbn ess documented in this encounter Results * MRI Brain W WO Contrast (04/19/2019 3:47 PM KEYBOARD OPERATOR) Anatomical Region Laterality Modality Head and Neck N/A Magnetic Resonan ce 04/19/2019 4:54 PM KEYBOARD OPERATOR Impressions 04/20/2019 8:35 AM KEYBOARD OPERATOR Normal MRI of the brain. Dictated by: Johnathon Bell M.D. The radiology attending physician has personally reviewed this study, and had reviewed and/or edited this written report and agrees with it. Electronically signed by: Dalton Mobley M.D. Narrative 04/20/2019 8:35 AM KEYBOARD OPERATOR EXAMINATION: Magnetic resonance imaging (MRI) of the brain and brainstem without and with contrast HISTORY: Right sided paresthesias TECHNIQUE: Multiplanar multi-weighted MRI of the brain and brainstem was performed without and with intravenous contrast using the general brain protocol. Contrast information: 03/21/2019 mL Dotarem COMPARISON: Head CT 03/21/2019 FINDINGS: The scalp and calvarium are normal. ?? The superior sagittal sinus demonstrates normal venous flow. ??The corpus callosum is normal in shape and signal intensity. ??The posterior fossa is unremarkable. The pituitary and sella are normal. ??The brainstem and craniocervical junction are unremarkable. Diffusion weighted images reveal no hyperintensities to suggest acute cerebral infarction. ??The susceptibility weighted sequences reveal no evidence of acute or chronic hemorrhage. ??The ventricles are normal in size and position without evidence of hydrocephalus . There are no areas of abnormal contrast enhancement. Mucus retention cyst noted within the sphenoid sinus. ??The visualized portions of the mastoids are unremarkable. ??The orbits appear normal. Normal flow voids are demonstrated in the carotid arteries and basilar artery. Procedure Note Dalton Mobley MD - 04/20/2019 EXAMINATION: Magnetic resonance imaging (MRI) of the brain and brainstem without and with contrast HISTORY: Right sided paresthesias TECHNIQUE: Multiplanar multi-weighted MRI of the brain and brainstem was performed without and with intravenous contrast using the general brain protocol. Contrast information: 03/21/2019 mL Dotarem COMPARISON: Head CT 03/21/2019 FINDINGS: The scalp and calvarium are normal. The superior sagittal sinus demonstrates normal venous flow. The corpus callosum is normal in shape and signal intensity. The posterior fossa is unremarkable. The pituitary and sella are normal. The brainstem and craniocervical junction are unremarkable. Diffusion weighted images reveal no hyperintensities to suggest acute cerebral infarction. The susceptibility weighted sequences reveal no evidence of acute or chronic hemorrhage. The ventricles are normal in size and position without evidence of hydrocephalus . There are no areas of abnormal contrast enhancement. Mucus retention cyst noted within the sphenoid sinus. The visualized portions of the mastoids are unremarkable. The orbits appear normal. Normal flow voids are demonstrated in the carotid arteries and basilar artery. IMPRESSION: Normal MRI of the brain. Dictated by: Johnathon Bell M.D. The radiology attending physician has personally reviewed this study, and had reviewed and/or edited this written report and agrees with it. Electronically signed by: Dalton Mobley M.D. Elle Acuna MD IMG MRI PROCEDURES Fin al Result documented in this encounter Visit Diagnoses Diagnosis Paresthesias/numbness Disturbance of skin sensation documented in this encounter Administered Medications Inactive Administered Medications - up to 3 most recent administrations Medication Order MAR Action Action Date Dose Rate Site gadoterate meglumine (DOTAREM) 0.5 mmol/mL injection 20 mL 20 mL, intravenous, Once in imaging, contrast, Starting on Wed04/19/19 at 1529, For 1 dose Given 04/19/2019 3:29 PM KEYBOARD OPERATOR 20 mL sodium chloride 0.9% flush 50 mL 50 mL, intravenous, As needed, line care, Starting on Wed04/19/19 at 1529 Given 04/19/2019 3:30 PM KEYBOARD OPERATOR 50 mL documented in this encounter Care Teams Tawer Relationship Specialty Start Date End Date Elle Acuna MD PCP - General Internal Medicine 03/30/19 documented as of this encounter
--- OUTSIDE RECORDS SUMMARY | 2024-05-26 02:43 | XMS_ITS | Encounter Summary ---
Author Organization [facility] Address [address] [facility] [address] [place] [id number] Care Team Providers Care Reinstatement Clerk Name Role Phone Elle Acuna MD Primary Care Provider Reason for Visit * Reason Comments Sore Throat Sx started 4/5; Cough Began day after sore throat... Nasal Congestion Earache More pain/pressure i n left ear; minimal in right Encounter Details Date Type Department Care Team (Late st Contact Info) Description 09/14/2021 2:00 PM CDT Office Visit [facility] Out[facility] [address] [id number] Rossana Marin NP [address] [place] [address] Non-recurrent acute suppurative otitis media of left ear without spontaneous rupture of tympanic membrane (Primary Dx) Social History Tobacco Use Types Packs/Day Years [...] Sign Reading Time Taken Comments Blood Pressure 133/87 09/14/2021 2:12 PM CDT Pulse 104 09/14/2021 2:12 PM CDT Temperature 37.2 ??C (98.9 ??F) 09/14/2021 2:12 PM CD T Respiratory Rate - - Oxygen Saturation 98% 09/14/2021 2:12 PM CDT Inhaled Oxygen Concentration - - Weight 155.6 kg (343 lb 1.6 oz) 09/14/2021 2:12 PM CDT Height 172.7 cm (5' 8 ) 09/14/2021 2:12 PM CDT Body Mass Index 52.17 09/14/2021 2:12 PM CDT documented in this encounter Patient Instructions * Patient Instructions* Rossana Marin, MANAGER [employer] - 09/14/2021 2:00 PM CDT Images from the original note were not included. The treatment for Ear Infections (otitis media) may include any of the following: ??? Take antibiotics as prescribed until they are gone. ??? Your ear pain should begin to improve over the next 24-72 hours, however the fluid behind your ear drum(s) can take up to 2 weeks to spontaneously resolve, your ear may sound muffled or pop off and on during this 2 weeks, this is normal. For ear pain: ??? You may take Tylenol (acetaminophen) or Advil/Motrin (ibuprofen) as needed for pain. Please follow package directions. ??? A warm (not hot) heating pad held over the ear can also help relieve the pain from the earache.You should use a thin cloth such as a dry washcloth between your skin and the heating pad. Things you can do to help your ear return to normal: ??? Drink plenty of fluids ??? Take a once day antihistamine like claritin or zytec ??? Sleep with your head of bed elevated to encourage drainage ??? You can try an OTC antihistamine nasal spray, like Nasacort, to help the congestion as well. ??? Adults may chew gum, or suck on lozenges to encourage your eustachian tube to drain Follow up with your Primary Care Physician in 2 weeks for ear recheck or sooner if symptoms worsen or are not improving as planned. GO TO THE ER WITH ANY NEW ONSET OF FEVER, PAIN BEHIND THE EAR AND/OR REDNESS OVER THE BONE BEHIND THE EAR, OR SWELLING OF THE EXTERNAL EAR AND/OR EXTERNAL EAR APPEARING TO BE DISPLACED DOWNWARD. THESE ARE ALL SIGNS OF A SERIOUS COMPLICATION AND REQUIRES IMMEDIATE ATTENTION. Patient Education Ear Infection ENVIRONMENTAL SCIENTIST: An ear infection is also called otitis media. An ear infection may be caused by blocked or swollen eustachian tubes. Eustachian tubes connect the middle ear to the back of the nose and throat. They drain fluid from the middle ear. With an ear infection, fluid builds up and is infected by germs. Thegerms grow easily in fluid trapped behind the eardrum. Common symptoms include the following: ?? Ear pain ?? Fever or a headache ?? Trouble hearing ?? Ringing or buzzing in your ear ?? Plugged ear or an ear that feels full ?? Dizziness ?? Nausea or vomiting Call 911 or have someone call 911 for the following: ?? You have a seizure. Seek immediate care for the following symptoms: ?? You have a fever and a stiff neck. Contact your healthcare provider if: ?? Your ear pain gets worse or does not go away, even after treatment. ?? The outside of your ear is red or swollen. ?? You are vomiting or have diarrhea. ?? You have fluid coming from your ear. ?? You have questions or concerns about your condition or care. Medicines: You may need any of the following: ?? Acetaminophen decreases pain and fever. It is available without a doctor's order. Ask how much to take and how often to take it. Follow directions. Read the labels of all other medicines you are using to see if they also contain acetaminophen, or ask your doctor or pharmacist. Acetaminophen can cause liver damage if not taken correctly. Do not use more than 4 grams (4,000 milligrams) total of acetaminophen in one day. ?? NSAIDs , such as ibuprofen, help decrease swelling, pain, and fever. This medicine is available with or without a doctor's order. NSAIDs can cause stomach bleeding or kidney problems in certain people. If you take blood thinner medicine, always ask your healthcare provider if NSAIDs are safe foryou. Always read the medicine label and follow directions. ?? Ear drops help treat your ear pain. ?? Antibiotics help treat a bacterial infection that caused your ear infection. ?? Take your medicine as directed. Contact your healthcare provider if you think your medicine is not helping or if you have side effects. Tell him or her if you are allergic to any medicine. Keep a list of the medicines, vitamins, and herbs you take. Include the amounts, and when and why you take them. Bring the list or the pill bottles to follow-up visits. Carry your medicine list with you in case of an emergency. Manage your symptoms: ?? Apply heat on your ear for 15 to 20 minutes, 3 to 4 times a day or as directed. Heat helps decrease pain. ?? Apply ice on your ear for 15 to 20 minutes, 3 to 4 times a day for 2 days or as directed. Use anice pack, or put crushed ice in a plastic bag. Cover it with a towel before you apply it to your ear. Ice decreases swelling and pain. Prevent an ear infection: ?? Wash your hands often. Use soap and water. Wash your hands after you use the bathroom, change a child's diapers, or sneeze. Wash your hands before you prepare or eat food. ?? Stay away from people who are ill. Some germs are easily and quickly spread through contact. Follow up with your healthcare provider as directed: Write down your questions so you remember to ask them during your visits. ?? 2017 [employer] Information is for End User's use only and may not be sold, redistributed or otherwise used for commercial purposes. All illustrations and images included in CareNotes?? are the copyrighted property of [employer]. or [employer]. The above information is an exceptional student education aide only. It is not intended as medical advice for individual conditions or treatments. Talk to your doctor, nurse or pharmacist before following any medical regimen to see if it is safe and effective for you. documented in this encounter Ordered Prescriptions Prescription Sig Dispense Quantity Refills Last Filled Start Date End Date amoxicillin (AMOXIL) 875 mg tabletIndications: Non-recurrent acute suppurative otitis media of left ear without spontaneous rupture of tympanic membrane Take 1 tablet (875 mg total) by mouth 2 (two) times a day for 7 days 14 tablet 09/14/2021 09/21/2021 documented in this encounter Progress Notes * Rossana Marin, MANAGER [employer] - 09/14/2021 2:00 PM CDT Images from the original note were not included. Patient ID: Iveth Montoya is a 41 y.o. female followed by Elle Acuna MD Chief Complaint Patient presents with ??? Sore Throat Sx started 09/09; ??? Cough Began day after sore throat... ??? Nasal Congestion ??? Earache More pain/pressure in left ear; minimal in right Patient presents to the clinic with reports of sore throat, cough, congestion, and earache for 5 days. Patient denies fevers, chest pain, vomiting, diarrhea, and difficulty breathing. Patient has taken sudafed, ibuprofen for her symptoms. Review of Systems Constitutional: Negative for chills, fatigue and fever. HENT: Positive for congestion, ear pain and sore throat. Negative for postnasal drip and rhinorrhea. Respiratory: Positive for cough. Negative for chest tightness, shortness of breath and wheezing. Cardiovascular: Negative for chest pain. Gastrointestinal: Negative for diarrhea, nausea and vomiting. Musculoskeletal: Negative for myalgias. Neurological: Negative for headaches. Vitals: 09/14/21 1412 BP: 133/87 BP Location: Right arm Patient Position: Sitting Pulse: 104 Temp: 37.2 ??C (98.9 ??F) TempSrc: Oral SpO2: 98% Weight: (!) 155.6 kg (343 lb 1.6 oz) Height: 172.7 cm (5' 8 ) Recent Results (from the past 24 hour(s)) POCT rapid strep A Collection Time: 09/14/21 2:32 PM Result Value Ref Range Rapid Strep A, POC Negative POC Influenza A/B, COVID-19 antigen Collection Time: 09/14/21 2:38 PM Result Value Ref Range Inflenza A Ag, POC Negative Influenza B Ag, POC Negative COVID-19 Ag POC Presumptive Negative Presumptive Negative, Invalid Physical Exam Vitals reviewed. Constitutional: Appearance: She is well-developed. HENT: Head: Normocephalic. Right Ear: Tympanic membrane, ear canal and external ear normal. Tympanic membrane is not injected,erythematous or bulging. Left Ear: Ear canal and external ear normal. A middle ear effusion is present. Tympanic membrane iserythematous and bulging. Nose: Congestion present. Right Sinus: No maxillary sinus tenderness or frontal sinus tenderness. Left Sinus: No maxillary sinus tenderness or frontal sinus tenderness. Mouth/Throat: Lips: [place]. Mouth: Mucous membranes are moist. Pharynx: Uvula midline. No pharyngeal swelling, oropharyngeal exudate or posterior oropharyngeal erythema. Tonsils: No tonsillar exudate. Eyes: Conjunctiva/sclera: Conjunctivae normal. Cardiovascular: Rate and Rhythm: Normal rate and regular rhythm. Pulmonary: Effort: Pulmonary effort is normal. No respiratory distress. Breath sounds: Normal breath sounds. No decreased breath sounds, wheezing or rhonchi. Musculoskeletal: General: Normal range of motion. Lymphadenopathy: Cervical: No cervical adenopathy. Skin: General: Skin is warm and dry. Neurological: Mental Status: She is alert and oriented to person, place, and time. Diagnoses and all orders for this visit: Non-recurrent acute suppurative otitis media of left ear without spontaneous rupture of tympanic membrane (Primary) - POC Influenza A/B, COVID-19 antigen - POCT rapid strep A - amoxicillin (AMOXIL) 875 mg tablet; Take 1 tablet (875 mg total) by mouth 2 (two) times a day for7 days Orders Placed This Encounter Procedures ??? POC Influenza A/B, COVID-19 antigen Order Specific Question: Is the Patient experiencing symptoms consistent with COVID? Answer: Yes Order Specific Question: Date of Symptom Onset Answer: 09/09/2021 Order Specific Question: Is the patient hospitalized? Answer: No Order Specific Question: Is the patient admitted to an ICU? Answer: No Order Specific Question: Is this the first COVID-19 test for this patient? Answer: No Order Specific Question: Does the patient currently work in a healthcare facility with direct patient contact? Answer: No Order Specific Question: Is the patient a resident of a congregate care or living setting? Answer: No Order Specific Question: ? Answer: No ??? POCT rapid strep A Assessment/Plan The treatment for Ear Infections (otitis media) may include any of the following: ??? Take antibiotics as prescribed until they are gone. ??? Your ear pain should begin to improve over the next 24-72 hours, however the fluid behind your ear drum(s) can take up to 2 weeks to spontaneously resolve, your ear may sound muffled or pop off and on during this 2 weeks, this is normal. For ear pain: ??? You may take Tylenol (acetaminophen) or Advil/Motrin (ibuprofen) as needed for pain. Please follow package directions. ??? A warm (not hot) heating pad held over the ear can also help relieve the pain from the earache.You should use a thin cloth such as a dry washcloth between your skin and the heating pad. Things you can do to help your ear return to normal: ??? Drink plenty of fluids ??? Take a once day antihistamine like claritin or zytec ??? Sleep with your head of bed elevated to encourage drainage ??? You can try an OTC antihistamine nasal spray, like Nasacort, to help the congestion as well. ??? Adults may chew gum, or suck on lozenges to encourage your eustachian tube to drain Follow up with your Primary Care Physician in 2 weeks for ear recheck or sooner if symptoms worsen or are not improving as planned. GO TO THE ER WITH ANY NEW ONSET OF FEVER, PAIN BEHIND THE EAR AND/OR REDNESS OVER THE BONE BEHIND THE EAR, OR SWELLING OF THE EXTERNAL EAR AND/OR EXTERNAL EAR APPEARING TO BE DISPLACED DOWNWARD. THESE ARE ALL SIGNS OF A SERIOUS COMPLICATION AND REQUIRES IMMEDIATE ATTENTION. Lungs CTA, O2 Saturation @98%/RA, low suspicion for pneumonia at this time. Will recommend supportive care for symptoms with f/u precautions including signs/symptoms warranting ER evaluation. ??? Discussed home self-care, follow up needs, and signs and symptoms that warrant immediate medical attention/ER evaluation including worsening fever, increased shortness of breath, severe N/V/D, orany other worrisome symptoms ??? Reviewed isolation/quarantine protocols ??? Discussed symptomatic relief of symptoms ??? Advised to rest and increase oral fluid intake ??? Advised to stay out of work and work release given explaining when patient can return to work Patient Education Ear Infection ENVIRONMENTAL SCIENTIST: An ear infection is also called otitis media. An ear infection may be caused by blocked or swollen eustachian tubes. Eustachian tubes connect the middle ear to the back of the nose and throat. They drain fluid from the middle ear. With an ear infection, fluid builds up and is infected by germs. Thegerms grow easily in fluid trapped behind the eardrum. Common symptoms include the following: ?? Ear pain ?? Fever or a headache ?? Trouble hearing ?? Ringing or buzzing in your ear ?? Plugged ear or an ear that feels full ?? Dizziness ?? Nausea or vomiting Call 911 or have someone call 911 for the following: ?? You have a seizure. Seek immediate care for the following symptoms: ?? You have a fever and a stiff neck. Contact your healthcare provider if: ?? Your ear pain gets worse or does not go away, even after treatment. ?? The outside of your ear is red or swollen. ?? You are vomiting or have diarrhea. ?? You have fluid coming from your ear. ?? You have questions or concerns about your condition or care. Medicines: You may need any of the following: ?? Acetaminophen decreases pain and fever. It is available without a doctor's order. Ask how much to take and how often to take it. Follow directions. Read the labels of all other medicines you are using to see if they also contain acetaminophen, or ask your doctor or pharmacist. Acetaminophen can cause liver damage if not taken correctly. Do not use more than 4 grams (4,000 milligrams) total of acetaminophen in one day. ?? NSAIDs , such as ibuprofen, help decrease swelling, pain, and fever. This medicine is available with or without a doctor's order. NSAIDs can cause stomach bleeding or kidney problems in certain people. If you take blood thinner medicine, always ask your healthcare provider if NSAIDs are safe foryou. Always read the medicine label and follow directions. ?? Ear drops help treat your ear pain. ?? Antibiotics help treat a bacterial infection that caused your ear infection. ?? Take your medicine as directed. Contact your healthcare provider if you think your medicine is not helping or if you have side effects. Tell him or her if you are allergic to any medicine. Keep a list of the medicines, vitamins, and herbs you take. Include the amounts, and when and why you take them. Bring the list or the pill bottles to follow-up visits. Carry your medicine list with you in case of an emergency. Manage your symptoms: ?? Apply heat on your ear for 15 to 20 minutes, 3 to 4 times a day or as directed. Heat helps decrease pain. ?? Apply ice on your ear for 15 to 20 minutes, 3 to 4 times a day for 2 days or as directed. Use anice pack, or put crushed ice in a plastic bag. Cover it with a towel before you apply it to your ear. Ice decreases swelling and pain. Prevent an ear infection: ?? Wash your hands often. Use soap and water. Wash your hands after you use the bathroom, change a child's diapers, or sneeze. Wash your hands before you prepare or eat food. ?? Stay away from people who are ill. Some germs are easily and quickly spread through contact. Follow up with your healthcare provider as directed: Write down your questions so you remember to ask them during your visits. ?? 2017 [employer] Information is for End User's use only and may not be sold, redistributed or otherwise used for commercial purposes. All illustrations and images included in CareNotes?? are the copyrighted property of [employer]. or [employer]. The above information is an exceptional student education aide only. It is not intended as medical advice for individual conditions or treatments. Talk to your doctor, nurse or pharmacist before following any medical regimen to see if it is safe and effective for you. Rossana Marin NP documented in this encounter Plan of Treatment Not on file documented as of this encounter Procedures Procedure Name Priority Date/Time Associated Diagnosis Comments POC INFLUENZA A/B, COVID-19 ANTIGEN Routine 09/14/2021 2:38 PM CDT Non-recurrent acute suppurative otitis media of left ear without spontaneous rupture of tympanic membrane POCT RAPID STREP Routine 09/14/2021 2:32 PM CDT Non-recurrent acute suppurative otitis media of left ear without spontaneous rupture of tympanic membrane documented in this encounter Results * POC Influenza A/B, COVID-19 antigen (09/14/2021 2:38 PM CDT) Influenza A Ag, POC Negative [facility] Influenza B Ag, POC Negative [facility] COVID-19 Ag POC Presumptive Negative Presumptive Negative, Invalid [facility] 09/14/2021 2:38 PM CDT us Rossana Marin NP POINT OF CARE TEST ORDERABLES Edited Result - Final Performing Organization Address City/State/[facility] Co de Phone Number [facility] [address] [place] [address] * POCT rapid strep A (09/14/2021 2:32 PM CDT) Rapid Strep A, POC Negative Swab 09/14/2021 2:32 PM CDT us Rossana Marin NP POINT OF CARE TEST ORDERABLES Final Result documented in this encounter Visit Diagnoses Diagnosis Non-recurrent acute suppurative otitis media of left ear without spontaneous rupture of tympanic membrane- Primary documented in this encounter Additional Health Concerns Infection Onset Date Last Indicated Resolved Time COVID: Suspected 09/14/2021 09/14/2021 09/14/2021 2:39 PM CDT documented as of this encounter Care Teams Reinstatement Clerk Relationship Specialty Start Date End Date Elle Acuna MD PCP - General Internal Medicine 03/30/19 documented as of this encounter
--- OUTSIDE RECORDS SUMMARY | 2024-05-26 02:43 | XMS_ITS | Encounter Summary ---
Author Organization [facility] Address [address] [facility] [address] [place] [id number] Care Team Providers Care Tree Scout Name Role Phone Elle Acuna MD Primary Care Provider Reason for Visit * Reason Comments Nasal Congestion Sore Throat Headache Encounter Details Date Type Department Care Team (Late st Contact Info) Description 11/28/2021 2:15 PM CDT Office Visit [facility] [address] [id number] [place] [address] [place] [address] [address] [place], [place] [id number] COVID-19 (Primary Dx) Social History Tobacco Use Types [...] Sign Reading Time Taken Comments Blood Pressure 152/100 11/28/2021 2:20 PM CDT Pulse 85 11/28/2021 2:20 PM CDT Temperature 37.1 ??C (98.7 ??F) 11/28/2021 2:20 PM CD T Respiratory Rate 18 11/28/2021 2:20 PM CDT Oxygen Saturation 97% 11/28/2021 2:20 PM CDT Inhaled Oxygen Concentration - - Weight 154.4 kg (340 lb 6.4 oz) 11/28/2021 2:20 PM CDT Height 172.7 cm (5' 8 ) 11/28/2021 2:20 PM CDT Body Mass Index 51.76 11/28/2021 2:20 PM CDT documented in this encounter Patient Instructions * Patient Instructions* Rossana Marin, GAS PUMPING STATION HELPER - 11/28/2021 2:36 PM CDT The rapid COVID test performed today in clinic was positive. The following are recommendations for treating the symptoms related to COVID19. What is the difference between Influenza (Flu) and COVID-19? Influenza (Flu) and COVID-19 are both contagious respiratory illnesses, but they are caused by different viruses. COVID-19 is caused by infection with a new coronavirus (called SARS-CoV-2) and flu is caused by infection with influenza viruses. There are some farrar differences between flu and COVID-19. COVID-19 seems to spread more easily than flu and causes more serious illnesses in some people. It can also take longer before people show symptoms and people can be contagious for longer. The best way to prevent infection is to avoid being exposed to the virus. Because some of the symptoms of flu and COVID-19 are similar, it may be hard to tell the difference between them based on symptoms alone, and testing may be needed to help confirm a diagnosis.While more is learned every day, there is still a lot that is unknown about COVID-19 and the virus that causes it. The [facility] Department will be reaching out to all patients who have a positive test for further discussion and monitoring. Continue to self isolate until at least 5 days have passed since symptom onset, your symptoms have improved, and you have been fever free without the use of fever reducing medications for at least 24 hours. The CDC recommends that after 5 days of isolation if you are fever free and symptoms have improved that you can come out of isolation but please continue to wear your mask. You may use acetaminophen and/or ibuprofen to control pain and fever. If you have chronic liver disease, have ever had a stomach ulcer or gastrointestinal bleeding talk with your healthcare provider before using these medicines. Aspirin should never be given to anyone under 18 years of age who is ill with a viral infection or fever. It may cause severe liver or brain damage. Your appetite may be poor, so a light diet is ok. Stay well hydrated by drinking 6 to 8 glasses of fluids per day (water, soft drinks, juices, tea, or soup). Extra fluids will help loosen secretions in the nose and lungs. Ycin-dnj-rgoqrql cold medicines will not shorten the length of time you???re sick, but they may be helpful for relieving the following symptoms: headache, cough, sore throat, and nasal and sinus congestion. If you take prescription medicines, ask your healthcare provider or pharmacist which eutf-atm-ciivjsr medicines are safe to use. (Note: DO NOT use decongestants if you have high blood pressure.) Steps to help prevent the spread of COVID-19 if you are sick If you are sick with COVID-19 or think you might have COVID-19, follow the steps below to care for yourself and to help protect other people in your home and community. Stay home except to get medical care Most people with COVID-19 have mild illness and are able to recover at home without medical care. Do not leave your home, except to get medical care. Do not visit public areas. Take care of yourself. Get rest and stay hydrated. Take gpzx-awg-lozauvo medicines to help you feelbetter. Stay in touch with your doctor. Call before you get medical care. Be sure to get care if you have trouble breathing, or have any other emergency warning signs, or if you think it is an emergency. Avoid using public transportation, ride-sharing, or taxis. Monitor your symptoms Symptoms of COVID-19 include fever, cough, shortness of breath or difficulty breathing, fatigue, muscle or body aches, headache, new loss of taste or smell, sore throat, congestion, runny nose, nausea, vomiting, or diarrhea. When to Seek Medical Attention If you develop emergency warning signs for COVID-19 get medical attention immediately. Emergency warning signs include*: Trouble breathing Persistent pain or pressure in the chest New confusion or inability to arouse Bluish lips or face *This list is not all inclusive. Please consult your medical provider for any other symptoms that are severe or concerning. Call 911 if you have a medical emergency: If you have a medical emergency and need to call 911, notify the impregnator operator that you have or think you might have, COVID-19. If possible, put on a facemask before medical help arrives. Separate yourself from other people in your home, this is known as home isolation As much as possible, you should stay away from other people and pets in your home. You should stay in a specific ???sick room?? if possible. Use a separate bathroom, if available. If you need to be around other people or animals in or outside of the home, wear a mask For more information on sharing close living quarters with someone who is sick visit https://www.cdc .gov/coronavirus/2019-ncov/jzdqv-bjer-clsmfz/tpajem-bu-mhnqp-quarters.html For more information on COVID-19 and pets visit https://www.cdc.gov/coronavirus/2019-ncov/faq.html Call ahead before visiting your doctor Many medical visits for routine care are being postponed or done by phone or telemedicine. If you have a medical appointment that cannot be postponed, call your doctor???s office, and tell them you have or may have COVID-19. This will help the office protect themselves and other patients. documented in this encounter Progress Notes * Rossana Marin NP - 11/28/2021 2:15 PM CDT Images from the original note were not included. Patient ID: Iveth Montoya is a 41 y.o. female followed by Elle Acuna MD Chief Complaint Patient presents with ??? Nasal Congestion ??? Sore Throat ??? Headache Patient presents to the clinic with reports of congestion, cough, headache, diarrhea, vomiting, body aches, sore throat, fevers, and ear pain for 1 day. Patient denies rash, shortness of breath, and chest pains. She has taken mucinex for her symptoms. She is not vaccinated against covid and has never had it before. Review of Systems Constitutional: Positive for fever. Negative for chills and fatigue. HENT: Positive for congestion, ear pain and sore throat. Negative for postnasal drip and rhinorrhea. Respiratory: Positive for cough. Negative for chest tightness, shortness of breath and wheezing. Cardiovascular: Negative for chest pain. Gastrointestinal: Positive for diarrhea, nausea and vomiting. Musculoskeletal: Positive for myalgias. Neurological: Positive for headaches. Vitals: 11/28/21 1420 BP: 152/100 BP Location: Right arm Patient Position: Sitting Pulse: 85 Resp: 18 Temp: 37.1 ??C (98.7 ??F) TempSrc: Oral SpO2: 97% Weight: (!) 154.4 kg (340 lb 6.4 oz) Height: 172.7 cm (5' 8 ) Recent Results (from the past 24 hour(s)) COVID-19 POC Collection Time: 11/28/21 2:37 PM Result Value Ref Range COVID-19 RNA PCR POC Positive (A) Not Detected, Negative, Undetected COVID-19 Ag POC (BD Veritor) Positive (A) Presumptive Negative, Invalid POCT rapid strep A Collection Time: 11/28/21 2:37 PM Result Value Ref Range Rapid Strep A, POC Negative Physical Exam Vitals reviewed. Constitutional: Appearance: She is well-developed. HENT: Right Ear: Tympanic membrane, ear canal and external ear normal. Tympanic membrane is not injected,erythematous or bulging. Left Ear: Tympanic membrane, ear canal and external ear normal. Tympanic membrane is not injected, erythematous or bulging. Nose: Congestion and rhinorrhea present. Rhinorrhea is purulent. Right Sinus: No maxillary sinus tenderness or frontal sinus tenderness. Left Sinus: No maxillary sinus tenderness or frontal sinus tenderness. Mouth/Throat: Lips: [place]. Mouth: Mucous membranes are moist. Pharynx: Uvula midline. Posterior oropharyngeal erythema present. No pharyngeal swelling or oropharyngeal exudate. Eyes: Conjunctiva/sclera: Conjunctivae normal. Cardiovascular: Rate [...] Diagnoses and all orders for this visit: COVID-19 (Primary) - COVID-19 POC - POCT rapid strep A Orders Placed This Encounter Procedures ??? COVID-19 POC Order Specific Question: Is the Patient experiencing symptoms consistent with COVID? Answer: Yes Order Specific Question: Date of Symptom Onset Answer: 11/27/2021 Order Specific Question: Is the patient hospitalized? Answer: No Order Specific Question: Is the patient admitted to an ICU? Answer: No Order Specific Question: Does the patient currently work in a healthcare facility with direct patient contact? Answer: No Order Specific Question: Is the patient a resident of a congregate care or living setting? Answer: No Order Specific Question: ? Answer: No ??? POCT rapid strep A Assessment/Plan Lungs CTA, O2 Saturation @97%/RA, low suspicion for pneumonia at this time. [...] patient can return to work Patient Education The rapid COVID test performed today in clinic was positive. The following are recommendations for treating the symptoms related to COVID19. What is the difference between Influenza (Flu) and COVID-19? Influenza (Flu) and COVID-19 are both contagious respiratory illnesses, but they are caused by different viruses. COVID-19 is caused by infection with a new coronavirus (called SARS-CoV-2) and flu is caused by infection with influenza viruses. There are some farrar differences between flu and COVID-19. COVID-19 seems to spread more easily than flu and causes more serious illnesses in some people. It can also take longer before people show symptoms and people can be contagious for longer. The best way to prevent infection is to avoid being exposed to the virus. Because some of the symptoms of flu and COVID-19 are similar, it may be hard to tell the difference between them based on symptoms alone, and testing may be needed to help confirm a diagnosis.While more is learned every day, there is still a lot that is unknown about COVID-19 and the virus that causes it. The [facility] Department will be reaching out to all patients who have a positive test for further discussion and monitoring. Continue to self isolate until at least 5 days have passed since symptom onset, your symptoms have improved, and you have been fever free without the use of fever reducing medications for at least 24 hours. The CDC recommends that after 5 days of isolation if you are fever free and symptoms have improved that you can come out of isolation but please continue to wear your mask. You may use acetaminophen and/or ibuprofen to control pain and fever. If you have chronic liver disease, have ever had a stomach ulcer or gastrointestinal bleeding talk with your healthcare provider before using these medicines. Aspirin should never be given to anyone under 18 years of age who is ill with a viral infection or fever. It may cause severe liver or brain damage. Your appetite may be poor, so a light diet is ok. Stay well hydrated by drinking 6 to 8 glasses of fluids per day (water, soft drinks, juices, tea, or soup). Extra fluids will help loosen secretions in the nose and lungs. Wtes-gcl-grkdahm cold medicines will not shorten the length of time you???re sick, but they may be helpful for relieving the following symptoms: headache, cough, sore throat, and nasal and sinus congestion. If you take prescription medicines, ask your healthcare provider or pharmacist which yggc-gkk-nsomkhh medicines are safe to use. (Note: DO NOT use decongestants if you have high blood pressure.) Steps to help prevent the spread of COVID-19 if you are sick If you are sick with COVID-19 or think you might have COVID-19, follow the steps below to care for yourself and to help protect other people in your home and community. Stay home except to get medical care ??? Most people with COVID-19 have mild illness and are able to recover at home without medical care. Do not leave your home, except to get medical care. Do not visit public areas. ??? Take care of yourself. Get rest and stay hydrated. Take wepl-uck-hfjvbtu medicines to help you feel better. ??? Stay in touch with your doctor. Call before you get medical care. Be sure to get care if you have trouble breathing, or have any other emergency warning signs, or if you think it is an emergency. ??? Avoid using public transportation, ride-sharing, or taxis. Monitor your symptoms ??? Symptoms of COVID-19 include fever, cough, shortness of breath or difficulty breathing, fatigue, muscle or body aches, headache, new loss of taste or smell, sore throat, congestion, runny nose, nausea, vomiting, or diarrhea. When to Seek Medical Attention If you develop emergency warning signs for COVID-19 get medical attention immediately. Emergency warning signs include*: ??? Trouble breathing ??? Persistent pain or pressure in the chest ??? New confusion or inability to arouse ??? Bluish lips or face *This list is not all inclusive. Please consult your medical provider for any other symptoms that are severe or concerning. Call 911 if you have a medical emergency: If you have a medical emergency and need to call 911, notify the impregnator operator that you have or think you might have, COVID-19. If possible, put on a facemask before medical help arrives. Separate yourself from other people in your home, this is known as home isolation ??? As much as possible, you should stay away from other people and pets in your home. You should stay in a specific ???sick room?? if possible. Use a separate bathroom, if available. If you need king around other people or animals in or outside of the home, wear a mask For more information on sharing close living quarters with someone who is sick visit https://www.cdc .gov/coronavirus/2019-ncov/rxngn-wulc-isqusn/lggrjx-xg-kzuyo-quarters.html For more information on COVID-19 and pets visit https://www.cdc.gov/coronavirus/2019-ncov/faq.html Call ahead before visiting your doctor ??? Many medical visits for routine care are being postponed or done by phone or telemedicine. ??? If you have a medical appointment that cannot be postponed, call your doctor???s office, and tell them you have or may have COVID-19. This will help the office protect themselves and other patients. Rossana Marin NP documented in this encounter Plan of Treatment Not on file documented as of this encounter Procedures Procedure Name Priority Date/Time Associated Diagnosis Comments COVID-19 POC Routine 11/28/2021 2:37 PM CDT COVID-19 POCT RAPID STREP Routine 11/28/2021 2:37 PM CDT COVID-19 documented in this encounter Results * POCT rapid strep A (11/28/2021 2:37 PM CDT) Rapid Strep A, POC Negative Swab 11/28/2021 2:37 PM CDT Rossana Marin GAS PUMPING STATION HELPER POINT OF CARE TEST ORDERABLES Final Result * (ABNORMAL) COVID-19 POC (11/28/2021 2:37 PM CDT) Pathologist [facility] COVID-19 RNA PCR POC Positive( A) Not Detected, Negative, Undetected [facility] COVID-19 Ag POC (BD Veritor) Positive( A) Presumptive Negative, Invalid [facility] Nasal 11/28/2021 2:37 PM CDT Rossana Marin G[employer] PUMPING STATION HELPER POINT OF CARE TEST ORDERABLES Final Result [facility] [address] [place] [address] documented in this encounter Visit Diagnoses Diagnosis COVID-19- Primary documented in this encounter Additional Health Concerns Infection Onset Date Last Indicated Resolved Time COVID: Suspected 11/28/2021 11/28/2021 11/28/2021 2:37 PM CDT COVID19 11/28/2021 11/28/2021 12/08/2021 3:05 AM CDT documented as of this encounter Care Teams Tree Scout Relationship Specialty Start Date End Date Elle Acuna MD PCP - General Internal Medicine 03/30/19 documented as of this encounter
--- OUTSIDE RECORDS SUMMARY | 2024-05-26 02:43 | XMS_ITS | Encounter Summary ---
Author Organization [facility] Address [address] [facility] [address] [place] [address] Care Team Providers Care Gambling Monitor Name Role Phone Elle Acuna MD Primary Care Provider Encounter Details Date Type Department Care Team (Late st Contact Info) Description 07/31/2020 Orders Only [facility] Health Information Management [address] [place] [address] Elle Acuna MD [address] [place] [address] Social History Tobacco Use Types Packs/Day Years [...] Procedure Name Priority Date/Time Associated Diagnosis Comments SCAN - RADIOLOGY/IMAGING 07/31/2020 documented in this encounter Results * SCAN - RADIOLOGY/IMAGING (07/31/2020) Anatomical Region Laterality Modality Other Elle Acuna MD Edited Result - Final documented in this encounter Visit Diagnoses Not on filedocumented in this encounter Care Teams Gambling Monitor Relationship Specialty Start Date End Date Elle Acuna MD PCP - General Internal Medicine 03/30/19 documented as of this encounter
--- OUTSIDE RECORDS SUMMARY | 2024-05-26 02:43 | XMS_ITS | Encounter Summary ---
Author Organization [facility] Healthcare Address [address] [place] [address] Care Team Providers Care Director Of Marketing Operations Name Role Phone Elle Acuna MD Primary Care Provider Reason for Referral * Diagnostic Imaging (Routine) - Closed Specialty Diagnoses / Procedures Referred By Contac t Referred To Contact Diagnoses Left leg pain Procedures XR Tibia Fibula Left 2 Views Elle Acuna MD Phone: tel: fax: [facility] [address] Referral ID Status Reason Start Date Expiration Date Visits Re quested Visits Authorized [id number] Closed 10/05/2019 04/15/2021 1 1 * Diagnostic Imaging (Routine) - Closed Specialty Diagnoses / Procedures Referred By Contac t Referred To Contact Diagnoses Left leg pain Procedures XR Ankle Left 3 or More Views Elle Acuna MD Phone: tel: fax: [facility] [address] Referral ID Status Reason Start Date Expiration Date Visits Re quested Visits Authorized [id number] Closed 10/05/2019 04/15/2021 1 1 Reason for Visit * Diagnostic Imaging (Routine) - Closed Specialty Diagnoses / Procedures Referred By Contac t Referred To Contact Diagnoses Left leg pain Procedures XR Ankle Left 3 or More Views Elle Acuna MD Phone: tel: fax: [facility] [address] Referral ID Status Reason Start Date Expiration Date Visits Re quested Visits Authorized [id number] Closed 10/05/2019 04/15/2021 1 1 Encounter Details Date Type Department Care Team (Latest Contact Info) Description 10/05/2019 8:36 AM CDT - 10/05/2019 11:59 PM CDT Hospital Encounter [facility] [address] [facility] [address] [place] [address] Elle Acuna MD [address] [place] [address] Left leg pain Discharge Disposition: Discharge to home or self [...] by mouth daily SUMAtriptan (IMITREX) 50 mg tabletIndications: Migraine Take 1 tablet (50 mg total) by mouth once as needed for migraine May repeat after 2 hours. 9 tablet 5 03/30/2019 0 etonogestrel-ethin yl estradiol (NuvaRing) 0.12-0.015 mg/24 hr vaginal ringIndications:Pr egnancy Contraception Insert vaginally and leave in place for 3 consecutive weeks, then remove for 1 week. 1 each 12 07/07/2019 1 topiramate (TOPAMAX) 50 mg tabletIndications: Migraine Prevention Take 1 tablet (50 mg total) by mouth daily 90 tablet 3 10/05/2019 1 documented as of this encounter Discharge Disposition Disposition Code Departure Means Destination Discharge to home or self care documented in this encounter Plan of Treatment Not on file documented as of this encounter Procedures Procedure Name Priority Date/Time Associated Diagnosis Comments XR ANKLE LEFT 3 OR MORE VIEWS Schedule Routine, Read Routine (OP Routine) 10/05/2019 8:50 AM CDT Left leg pain XR TIBIA FIBULA LEFT 2 VIEWS Schedule Routine, Read Routine (OP Routine) 10/05/2019 8:50 AM CDT Left leg pain documented in this encounter Results * XR Tibia Fibula Left 2 Views (10/05/2019 8:50 AM CDT) Anatomical Region Laterality Modality Lower Extremities, Lower Leg Left Com puted Radiography 10/05/2019 9:14 AM CDT Impressions 10/05/2019 9:14 AM CDT 1. ??Normal radiographs of the left tibia and fibula. ??Normal appearance of the left ankle. Electronically signed by: Stephon Whittington M.D. Narrative 10/05/2019 9:14 AM CDT EXAMINATION: 1. ??Left ankle 3+ views 2. ??Left tibia and fibula 2 views HISTORY: ??Left lower leg and ankle pain. FINDINGS: 3 views of the left ankle are submitted for interpretation without comparison. ??The left ankle mortise and distal tibiofibular syndesmosis are intact. ??No acute fracture is identified. Heterotopic ossification in the distal Achilles tendon is consistent with chronic tendinopathy. ??There is a large plantar calcaneal enthesophyte. 2 views of the left tibia and fibula are submitted for interpretation without comparison. ??No fracture is identified. ??There is mild lateral compartment predominant left knee osteoarthritis. Procedure Note Stephon Whittington MD - 10/05/2019 EXAMINATION: 1. Left ankle 3+ views 2. Left tibia and fibula 2 views HISTORY: Left lower leg and ankle pain. FINDINGS: 3 views of the left ankle are submitted for interpretation without comparison. The left ankle mortise and distal tibiofibular syndesmosis are intact. No acute fracture is identified. Heterotopic ossification in the distal Achilles tendon is consistent with chronic tendinopathy. There is a large plantar calcaneal enthesophyte. 2 views of the left tibia and fibula are submitted for interpretation without comparison. No fracture is identified. There is mild lateral compartment predominant left knee osteoarthritis. IMPRESSION: 1. Normal radiographs of the left tibia and fibula. Normal appearance of the left ankle. Electronically signed by: Stephon Whittington M.D. Elle Acuna MD IMG XR PROCEDURES Genna l Result * XR Ankle Left 3 or More Views (10/05/2019 8:50 AM CDT) Anatomical Region Laterality Modality Lower Extremities, Ankle Left Compute d Radiography 10/05/2019 9:14 AM CDT Impressions 10/05/2019 9:14 AM CDT 1. ??Normal radiographs of the left tibia and fibula. ??Normal appearance of the left ankle. Electronically signed by: Stephon Whittington M.D. Narrative 10/05/2019 9:14 AM CDT EXAMINATION: 1. ??Left ankle 3+ views 2. ??Left tibia and fibula 2 views HISTORY: ??Left lower leg and ankle pain. FINDINGS: 3 views of the left ankle are submitted for interpretation without comparison. ??The left ankle mortise and distal tibiofibular syndesmosis are intact. ??No acute fracture is identified. Heterotopic ossification in the distal Achilles tendon is consistent with chronic tendinopathy. ??There is a large plantar calcaneal enthesophyte. 2 views of the left tibia and fibula are submitted for interpretation without comparison. ??No fracture is identified. ??There is mild lateral compartment predominant left knee osteoarthritis. Procedure Note Stephon Whittington MD - 10/05/2019 EXAMINATION: 1. Left ankle 3+ views 2. Left tibia and fibula 2 views HISTORY: Left lower leg and ankle pain. FINDINGS: 3 views of the left ankle are submitted for interpretation without comparison. The left ankle mortise and distal tibiofibular syndesmosis are intact. No acute fracture is identified. Heterotopic ossification in the distal Achilles tendon is consistent with chronic tendinopathy. There is a large plantar calcaneal enthesophyte. 2 views of the left tibia and fibula are submitted for interpretation without comparison. No fracture is identified. There is mild lateral compartment predominant left knee osteoarthritis. IMPRESSION: 1. Normal radiographs of the left tibia and fibula. Normal appearance of the left ankle. Electronically signed by: Stephon Whittington M.D. Elle Acuna MD IMG XR PROCEDURES Genna l Result documented in this encounter Visit Diagnoses Diagnosis Left leg pain Pain in soft tissues of limb documented in this encounter Care Teams Director Of Marketing Operations Relationship Specialty Start Date End Date Elle Acuan MD PCP - General Internal Medicine 03/30/19 documented as of this encounter
--- OUTSIDE RECORDS SUMMARY | 2024-05-26 02:43 | XMS_ITS | Encounter Summary ---
Author Organization [facility] Group Address [address] [address] Care Team Providers Care Vp Integration Name Role Phone Elle Acuna MD Primary Care Provider Encounter Details Date Type Department Care Team (Late st Contact Info) Description 02/15/2021 1:15 PM CDT Telemedicine [facility] Medical [facility] Virtual [facility] [address] [place] [phone] Helen Romano NP [id number] [place] [address] Acute non-recurrent maxillary sinusitis (Primary Dx); Otalgia of both ears Social History Tobacco Use Types Packs/Day Years [...] PM CDT documented as of this encounter Ordered Prescriptions Prescription Sig Dispense Quantity Refills Last Filled Start Date End Date fluticasone propionate (FLONASE) 50 mcg/actuation nasal spray Administer 2 sprays into each nostril daily 16 g 02/15/2021 documented in this encounter Progress Notes * Helen Romanole, SCREW MACHINE SETTER - 02/15/2021 1:15 PM CDT Images from the original note were not included. [place] Virtual Care Screening Evaluation for COVID-19 This was a telemedicine visit with Iveth maharaj which took place via real-time video connection with Magnetic. During the visit, I was located at home and the patient was located at home in the state of [place]. The patient visit started at 1320 and ended at 1330. My total encounter time on 02/15/2021 was 10 minutes which was spent in the activities documented in the note. This includes time spent prior to the visit and after the visit in direct care of the patient. This time does not includetime spent in any separately reportable services.. The patient has been informed that the visit may not be secure and acknowledged the information. I have explained the option of participating in a telephone or video visit during the COVID-19 public health emergency to the patient. After being given an opportunity to ask questions about and discuss this type of visit, the patient verbally consented to proceeding with the telephone/video visit.The patient understands that this service replaces an office visit and they may be billed and/or responsible for any applicable copayments. Assessment and Recommendations: Patient was found to be Asymptomatic with high risk conditions COVID testing indicated Yes Test not ordered. In order to minimize the spread of other respiratory viruses during the COVID-19 pandemic you should continue self-isolation measures until at least 72 hours after symptoms are resolved. If symptoms have not fully resolved within the next few days you should contact your primary care provider by phone for further evaluation. Diagnosis and Orders: (J01.00) Acute non-recurrent maxillary sinusitis (primary encounter diagnosis) (H92.03) Otalgia of both ears Additional guidance or treatments: Will prescribe Flonase. Pt to continue sudafed. If no relief pt instructed to be seen at [facility] for COVID testing. Patient instructions were included in the After Visit Summary sent to the patient's [employer] account. Focused HPI: The patient-submitted questionnaire was assessed for pertinent information and the patient's problem list, medication list, and allergies were reviewed as part of the virtual care visit. The chart was updated to identify any changes in these areas. No flowsheet data found. Symptoms: unvaccinated-c/o bilateral ear pain, sinus pressure, left sided sinus pain. Duration: x1 day-took zyrtec. Started sudafed today. Exposure risk (travel or close contact): denies exposure Review of Systems: Fever: No New Rhinorrhea or nasal congestion: Yes New Sore Throat:No New Muscle Aches: No New sudden loss of taste or smell: No New Cough: No New Shortness of Breath: No New Diarrhea: No Other: ear pain, sinus pressure, L sinus pain Focused physical exam: General appearance: In obvious distress No Neuro: Alert Yes Respiratory Distress: No Helen Romano NP documented in this encounter Plan of Treatment Not on file documented as of this encounter Visit Diagnoses Diagnosis Acute non-recurrent maxillary sinusitis- Primary Otalgia of both ears documented in this encounter Care Teams Vp Integration Relationship Specialty Start Date End Date Elle Acuna MD PCP - General Internal Medicine 03/30/19 documented as of this encounter
--- OUTSIDE RECORDS SUMMARY | 2024-05-26 02:43 | XMS_ITS | Encounter Summary ---
Author Organization [facility] Care Team Providers Care Administration Specialist Name Role Phone Elle Acuna MD Primary Care Provider Encounter Details Date Type Department Care Team (Latest Contact Info) Description 07/07/2019 Travel Social History Tobacco Use Types Packs/Day [...] on filedocumented in this encounter Care Teams Administration Specialist Relationship Specialty Start Date End Date Elle Acuna MD PCP - General Internal Medicine 03/30/19 documented as of this encounter
--- OUTSIDE RECORDS SUMMARY | 2024-05-26 02:43 | XMS_ITS | Encounter Summary ---
Author Organization [facility] Address [address] [place] [address] Care Team Providers Care Maintenance Machinist Name Role Phone Elle Acuna MD Primary Care Provider Encounter Details Date Type Department Care Team (Late st Contact Info) Description 03/30/2019 Telephone [facility] [address] [place] [phone] Elle Acuna MD [address] [place] [address] Social History Tobacco Use Types Packs/Day Years Used Date Smoking Tobacco: Never Smokeless Tobacco: Never Alcohol Use Standard Drinks/Week Comments Yes 0 (1 standard drink = 0.6 oz pur e alcohol) socially PHQ-2 Answer Date Recorded PHQ-2 Score 0 03/30/2019 Comments Unknown Sex and Gender Information Value Date Recorded Sex Assigned at Not on file Legal Sex Female 4:09 PM CDT Gender Identity Female 02/15/2021 1:09 PM CDT Sexual Orientation Straight 02/15/2021 1: 09 PM CDT documented as of this encounter Miscellaneous Notes * Telephone Encounter - Tiffanie Lugo - 03/30/2019 8:25 AM CDT Spoke to Renu @ [facility] [employer]. Pt is currently active. Effective as of 06/07/2017 documented in this encounter Plan of Treatment Not on file documented as of this encounter Visit Diagnoses Not on filedocumented in this encounter Care Teams Maintenance Machinist Relationship Specialty Start Date End Date Elle Acuna MD PCP - General Internal Medicine 03/30/19 documented as of this encounter
--- OUTSIDE RECORDS SUMMARY | 2024-05-26 02:43 | XMS_ITS | Encounter Summary ---
Author Organization [facility] Address [address] [address] Care Team Providers Care Power Distribution Engineer Name Role Phone Elle Acuna MD Primary Care Provider Reason for Referral * Diagnostic Imaging (Routine) - Closed Specialty Diagnoses / Procedures Referred By Contac t Referred To Contact Diagnoses Left leg pain Procedures XR Ankle Left 3 or More Views Elle Acuna MD Phone: tel: fax: [facility] [address] Referral ID Status Reason Start Date Expiration Date Visits Re quested Visits Authorized [id number] Closed 10/05/2019 04/15/2021 1 1 * Diagnostic Imaging (Routine) - Closed Specialty Diagnoses / Procedures Referred By Contac t Referred To Contact Diagnoses Left leg pain Procedures XR Tibia Fibula Left 2 Views Elle Acuna MD Phone: tel: fax: [facility] [address] Referral ID Status Reason Start Date Expiration Date Visits Re quested Visits Authorized [id number] Closed 10/05/2019 04/15/2021 1 1 Encounter Details Date Type Department Care Team (Late st Contact Info) Description 10/05/2019 8:00 AM CDT Office Visit [facility] [address] [place] [address] [place] [phone] Elle Acuna MD [address] [place] [address] Atypical migraine (Primary Dx); Left leg pain; Essential hypertension; Morbid obesity with BMI of 45.0-49.9, adult ([facility]) Social History Tobacco Use Types Packs/Day Years [...] Sign Reading Time Taken Comments Blood Pressure 112/72 10/05/2019 8:13 AM CDT Pulse 77 10/05/2019 8:13 AM CDT Temperature 36.8 ??C (98.3 ??F) 10/05/2019 8:13 AM CD T Respiratory Rate 14 10/05/2019 8:13 AM CDT Oxygen Saturation 98% 10/05/2019 8:13 AM CDT Inhaled Oxygen Concentration - - Weight 136.1 kg (300 lb) 10/05/2019 8:13 AM CDT Height 172.7 cm (5' 8 ) 10/05/2019 8:13 AM CDT Body Mass Index 45.61 10/05/2019 8:13 AM CDT documented in this encounter Ordered Prescriptions Prescription Sig Dispense Quantity Refills Last Filled Start Date End Date topiramate (TOPAMAX) 50 mg tabletIndications: Migraine Prevention Take 1 tablet (50 mg total) by mouth daily 90 tablet 3 10/05/2019 12/02/2020 documented in this encounter Progress Notes * Elle Acuna MD - 10/05/2019 8:00 AM CDT Iveth Montoya 1980 No chief complaint on file. Iveth presents for follow up of atypical migraines. She was started on Topamax in June for migraine prevention. 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 She realized that she had been forgetting to takeit and started having paresthesias on the right side of her face again. She has otherwise toleratedit well. She has persistent left leg and ankle swelling. There is some tenderness on the front of her left chandler. There is otherwise not any pain except at the end of an 8 hour shift on her feet she will have some discomfort in her bilateral feet and ankles. The swelling has been presents for a little over amonth now. Initially had some discoloration/erythema and warmth which we treated as cellulitis. The discoloration resolved but the swelling has not. Review of Systems Constitutional: Negative for fatigue and unexpected weight change. HENT: Negative for hearing loss. Eyes: Negative for visual disturbance. Respiratory: Negative for cough and shortness of breath. Cardiovascular: Positive for leg swelling. Negative for chest pain and palpitations. Gastrointestinal: Negative for abdominal pain and nausea. Endocrine: Negative for polydipsia and polyuria. Genitourinary: Negative for dysuria and hematuria. Musculoskeletal: Positive for arthralgias. Negative for back pain. Skin: Negative for rash. Neurological: Negative for light-headedness and headaches. Hematological: Negative for adenopathy. Psychiatric/Behavioral: Negative for dysphoric mood and suicidal ideas. BMI Body mass index is 45.61 kg/m??. Vitals BP 112/72 (BP Location: Left arm, Patient Position: Sitting) Pulse 77 Temp 36.8 ??C (98.3 ??F) (Oral) Resp 14 Ht 172.7 cm (5' 8 ) Wt 136.1 kg (300 lb) SpO2 98% BMI 45.61 kg/m?? Physical Exam Vitals signs reviewed. Constitutional: Appearance: She is well-developed. HENT: Head: Normocephalic and atraumatic. Eyes: Conjunctiva/sclera: Conjunctivae normal. Neck: Thyroid: No thyromegaly. Cardiovascular: Rate and Rhythm: Normal rate. Pulmonary: Effort: Pulmonary effort is normal. Abdominal: Palpations: Abdomen is soft. Tenderness: There is no abdominal tenderness. Musculoskeletal: Normal range of motion. General: Swelling (L leg and ankle slightly larger than R) and tenderness (mid- shaft L tibia) present. Right lower leg: No edema. Left lower leg: No edema. Skin: General: Skin is warm and dry. Capillary Refill: Capillary refill takes less than 2 seconds. Findings: No rash. Neurological: General: No focal deficit present. Mental Status: She is alert and oriented to person, place, and time. Psychiatric: Mood and Affect: Mood normal. Behavior: Behavior normal. No notes on file Assessment and Plan Diagnoses and all orders for this visit: Atypical migraine (Primary) Assessment & Plan: Continue Topamax 50 daily Left leg pain Assessment & Plan: With left leg swelling Has had negative LE duplex Will get xrays Recommend tylenol/NSAIDs prn, ice, compression sleeve Orders: - XR Tibia Fibula Left 2 Views; Future - XR Ankle Left 3 or More Views; Future Essential hypertension Assessment & Plan: Improved with lifestyle modifications Continue to monitor Morbid obesity with BMI of 45.0-49.9, adult ([facility]) Assessment & Plan: BMI Follow-up includes: nutrition counseling, exercise counseling and education provided. Other orders - topiramate (TOPAMAX) 50 mg tablet; Take 1 tablet (50 mg total) by mouth daily documented in this encounter Miscellaneous Notes * Assessment & Plan Note - Elle Acuna MD - 10/05/2019 8:34 AM CDT Associated Problem(s): Left leg pain (Resolved 09/01/2020) With left leg swelling Has had negative LE duplex Will get xrays Recommend tylenol/NSAIDs prn, ice, compression sleeve * Assessment & Plan Note - Elle Acuna MD - 10/05/2019 8:34 AM CDT Associated Problem(s): Essential hypertension Improved with lifestyle modifications Continue to monitor * Assessment & Plan Note - Elle Acuna MD - 10/05/2019 8:34 AM CDT Associated Problem(s): Atypical migraine Continue Topamax 50 daily * Assessment & Plan Note - Santos Romano MA - 10/05/2019 8:17 AM CDTAssociated Problem(s): Morbid obesity with BMI of 50.0-59.9, adult (HCC) BMI Follow-up includes: nutrition counseling, exercise counseling and education provided. documented in this encounter Plan of Treatment Not on file documented as of this encounter Results * XR Ankle Left 3 or More [...] XR PROCEDURES Genna l Result * XR Tibia Fibula Left 2 Views [...] intractable migraine without mention of status migrainosus Left leg pain Pain in soft tissues of limb Essential hypertension Unspecified essential hypertension Morbid obesity with BMI of 45.0-49.9, adult (HCC) Left leg pain Pain in soft tissues of limb documented in this encounter Discontinued Medications Medication Sig Discontinue Reason Start Date End Da te HYDROcodone-acetaminophe n (NORCO) 7.5-325 mg per tablet Therapy completed 07/24/2019 10/05/2019 topiramate (TOPAMAX) 50 mg tabletIndications:Migrai ne Prevention Take 1 tablet (50 mg total) by mouth daily Reorder 07/07/2019 10/05/2019 documented as of this encounter Care Teams Power Distribution Engineer Relationship Specialty Start Date End Date Elle Acuna MD PCP - General Internal Medicine 03/30/19 documented as of this encounter
--- OUTSIDE RECORDS SUMMARY | 2024-05-26 02:43 | XMS_ITS | Encounter Summary ---
Author Organization [facility] Address [address] [place] [address] Care Team Providers Care Domestic Laundry Worker Name Role Phone Elle Acuna MD Primary Care Provider Encounter Details Date Type Department Care Team (Late st Contact Info) Description 10/05/2019 Telephone [facility] [address] [place] [phone] Elle Acuna MD [address] [place] [address] Social History Tobacco Use Types Packs/Day [...] * Telephone Encounter - Tiffanie Lugo - 10/05/2019 8:21 AM CDT Spoke to Ama @ [facility]. Pt is currently active as of 09/05/2014 and eligible through October 2019. documented in this encounter Plan of Treatment Not on file documented as of this encounter Visit Diagnoses Not on filedocumented in this encounter Care Teams Domestic Laundry Worker Relationship Specialty Start Date End Date Elle Acuna MD PCP - General Internal Medicine 03/30/19 documented as of this encounter
--- OUTSIDE RECORDS SUMMARY | 2024-05-26 02:43 | XMS_ITS | Encounter Summary ---
Author Organization [facility] Healthcare Address [address] [place] [address] Care Team Providers Care Mint Machine Operator Name Role Phone Elle Acuna MD Primary Care Provider Reason for Visit * Diagnostic Imaging (Routine) - Closed Specialty Diagnoses / Procedures Referred By Contac t Referred To Contact Radiology Diagnoses Localized swelling of left lower extremity Procedures US Vein Duplex Lower Extremity Left Limited US Vein Duplex Lower Extremity Bilateral Complete Elle Acuna MD Phone: tel: fax: Referral ID Status Reason Start Date Expiration Date Visits Re quested Visits Authorized [id number] Closed 09/04/2019 03/15/2021 1 1 Encounter Details Date Type Department Care Team (Latest Contact Info) Description 09/08/2019 8:33 AM CDT - 09/08/2019 11:59 PM CDT Hospital Encounter [facility] Imaging [id number] [place] [phone] Elle Acuna MD [address] [place] [address] [place] [id number] Localized swelling of left lower extremity Discharge Disposition: Discharge to home or self [...] AM CDT documented as of this encounter Medications at Time of Discharge vitamin b complex tablet Take 1 tablet by mouth daily ondansetron ODT (ZOFRAN-ODT) 4 mg disintegrating tablet Take 1 tablet (4 mg total) by mouth every 8 (eight) hours as needed for nausea or vomiting for up to 14 days 30 tablet 08/29/2019 09/12/19 20 SUMAtriptan (IMITREX) 50 mg tabletIndications:M igraine Take 1 tablet (50 mg total) by mouth once as needed for migraine May repeat after 2 hours. 9 tablet 5 03/30/2019 03/29/20 20 etonogestrel-ethiny l estradiol (NuvaRing) 0.12-0.015 mg/24 hr vaginal ringIndications:Pre gnancy Contraception Insert vaginally and leave in place for 3 consecutive weeks, then remove for 1 week. 1 each 12 07/07/2019 07/06/19 21 HYDROcodone-acetami nophen (NORCO) 7.5-325 mg per tablet 07/24/2019 10/05/19 20 topiramate (TOPAMAX) 50 mg tabletIndications:M igraine Prevention Take 1 tablet (50 mg total) by mouth daily 30 tablet 3 07/07/2019 10/05/19 20 documented as of this encounter Discharge Disposition Disposition Code Departure Means Destination Discharge to home or self care documented in this encounter Plan of Treatment Not on file documented as of this encounter Procedures Procedure Name Priority Date/Time Associated Diagnosis Comments US VEIN DUPLEX LOWER EXTREMITY LEFT LIMITED Schedule Routine, Read Routine (OP Routine) 09/08/2019 9:02 AM CDT Localized swelling of left lower extremity documented in this encounter Results * US Vein Duplex Lower Extremity Left Limited (09/08/2019 9:02 AM CDT) Anatomical Region Laterality Modality Vascular Left Ultrasound 09/08/2019 9:17 AM CDT Impressions 09/08/2019 9:17 AM CDT No evidence of deep vein thrombosis within the left lower extremity. Electronically signed by: Yarely Sandy M.D. Narrative 09/08/2019 9:17 AM CDT EXAMINATION: LEFT LOWER EXTREMITY VENOUS DOPPLER HISTORY: ??Left lower extremity swelling and pain. ??Concern for deep vein thrombosis. COMPARISON: ??None available TECHNIQUE: Ultrasound examination was performed from the groin to the ankle using chang scale, duplex color flow, and spectral analysis. The proximal saphenous, common femoral, superficial femoral, popliteal, posterior tibial and peroneal veins were evaluated. Both augmentation and compression maneuvers were performed. FINDINGS: The veins of the left leg are normally compressible and augment normally. Normal respiratory variation is identified. Procedure Note Yarely Sandy MD - 09/08/2019 EXAMINATION: LEFT LOWER EXTREMITY VENOUS DOPPLER HISTORY: Left lower extremity swelling and pain. Concern for deep vein thrombosis. COMPARISON: None available TECHNIQUE: Ultrasound examination was performed from the groin to the ankle using chang scale, duplex color flow, and spectral analysis. The proximal saphenous, common femoral, superficial femoral, popliteal, posterior tibial and peroneal veins were evaluated. Both augmentation and compression maneuvers were performed. FINDINGS: The veins of the left leg are normally compressible and augment normally. Normal respiratory variation is identified. IMPRESSION: No evidence of deep vein thrombosis within the left lower extremity. Electronically signed by: Yarely Sandy M.D. us Elle Acuna MD IMG US PROCEDURES Genna l Result documented in this encounter Visit Diagnoses Diagnosis Localized swelling of left lower extremity documented in this encounter Care Teams Mint Machine Operator Relationship Specialty Start Date End Date Elle Acuna MD PCP - General Internal Medicine 03/30/19 documented as of this encounter
--- OUTSIDE RECORDS SUMMARY | 2024-05-26 02:43 | XMS_ITS | Encounter Summary ---
Author Organization [facility] Address [address] [place] [address] Care Team Providers Care Sleep Lab Technician Name Role Phone Elle Acuna MD Primary Care Provider Encounter Details Date Type Department Care Team (Late st Contact Info) Description 08/08/2019 Telephone [facility] [address] [place] [phone] Elle Acuna MD [address] [place] [address] [place] [address] Social [...] encounter Miscellaneous Notes * Telephone Encounter - Isabell Rodriguez - 08/08/2019 9:11 AM CST Per ahsan Mcdermott's policy eff: 09/05/14 - 09/06/19. Covered through August and September. Ref: [id number] T FACILITIES TECHNICIAN documented in this encounter Plan of Treatment Not on file documented as of this encounter Visit Diagnoses Not on filedocumented in this encounter Care Teams Sleep Lab Technician Relationship Specialty Start Date End Date Elle Acuna MD PCP - General Internal Medicine 03/30/19 documented as of this encounter
--- OUTSIDE RECORDS SUMMARY | 2024-05-26 02:43 | XMS_ITS | Encounter Summary ---
Author Organization [facility]/Health system Facility Care Team Providers Care Petroleum Engineer Name Role Phone Elle Acuna MD Primary Care Provider Encounter Details Date Type Department Care Team (Latest Contact Info) Description 03/30/2019 Travel Social History Tobacco Use Types Packs/Day [...] on filedocumented in this encounter Care Teams Petroleum Engineer Relationship Specialty Start Date End Date Elle Acuna MD PCP - General Internal Medicine 03/30/19 documented as of this encounter
--- OUTSIDE RECORDS SUMMARY | 2024-05-26 02:43 | XMS_ITS | Encounter Summary ---
Author Organization [facility] Facility Care Team Providers Care Wind Turbine Erector Name Role Phone No, Physician Primary Care Provider [phone] Encounter Details Date Type Department Care Team (Latest Contact Info) Description 03/21/2019 Travel Social History Tobacco Use Types Packs/Day Years Used Date Smoking Tobacco: Never Comments Unknown Sex and Gender Information Value Date Recorded Sex Assigned at Not on file Legal Sex Female 4:09 PM CDT Gender Identity Female 02/15/2021 1:09 PM CDT Sexual Orientation Straight 02/15/2021 1: 09 PM CDT documented as of this encounter Plan of Treatment Not on file documented as of this encounter Visit Diagnoses Not on filedocumented in this encounter Care Teams Wind Turbine Erector Relationship Specialty Start Date End Date Charisse Physician PCP - General 03/21/19 03/29/19 documented as of this encounter
--- OUTSIDE RECORDS SUMMARY | 2024-05-26 02:43 | XMS_ITS | Encounter Summary ---
Author Organization [facility] Medical [facility] Address [address] [place] [address] Care Team Providers Care Refinery Operator Crude Unit Name Role Phone Elle Acuna MD Primary Care Provider Encounter Details Date Type Department Care Team (Late st Contact Info) Description 11/29/2021 Orders Only [facility] Accountable Care Organization [address] [place] [address] Nicolette Franco RN [address] [place] [address] [address] [facility] [address] [place] [address] Social History Tobacco Use Types Packs/Day Years [...] Diagnoses Not on filedocumented in this encounter Additional Health Concerns Infection Onset Date Last Indicated Resolved Time COVID19 11/28/2021 11/28/2021 12/08/2021 3:05 AM CDT documented as of this encounter Care Teams Refinery Operator Crude Unit Relationship Specialty Start Date End Date Elle Acuna MD PCP - General Internal Medicine 03/30/19 documented as of this encounter
--- OUTSIDE RECORDS SUMMARY | 2024-05-26 02:43 | XMS_ITS | Encounter Summary ---
Author Organization [facility] Healthcare Address [address] [place] [address] Care Team Providers Care Wool Hat Finisher Name Role Phone Elle Acuna MD Primary Care Provider Encounter Details Date Type Department Care Team (Late st Contact Info) Description 12/07/2023 Orders Only [facility] [facility] [place] [address] [place] [address] [phone] Scanning, Provider Social History Tobacco Use Types Packs/Day Years [...] Priority Date/Time Associated Diagnosis Comments SCAN - LABS 12/07/2023 documented in this encounter Results * SCAN - LABS (12/07/2023) us Provider Scanning Final Result documented in this encounter Visit Diagnoses Not on filedocumented in this encounter Care Teams Wool Hat Finisher Relationship Specialty Start Date End Date Elle Acuna MD PCP - General Internal Medicine 03/30/19 documented as of this encounter
--- OUTSIDE RECORDS SUMMARY | 2024-05-26 02:43 | XMS_ITS | Encounter Summary ---
Author Organization [facility] Facility Care Team Providers Care Geriatric Nurse Practitioner Name Role Phone Elle Acuna MD Primary Care Provider Encounter Details Date Type Department Care Team (Latest Contact Info) Description 08/25/2019 Travel Social History Tobacco Use Types Packs/Day [...] AM CDT documented as of this encounter Plan of Treatment Not on file documented as of this encounter Visit Diagnoses Not on filedocumented in this encounter Care Teams Geriatric Nurse Practitioner Relationship Specialty Start Date End Date Elle Acuna MD PCP - General Internal Medicine 03/30/19 documented as of this encounter
--- OUTSIDE RECORDS SUMMARY | 2024-05-26 02:43 | XMS_ITS | Encounter Summary ---
Author Organization [facility] Medical [facility] Address [address] [place] [address] Care Team Providers Care Endocrinologist Name Role Phone Elle Acuna MD Primary Care Provider Encounter Details Date Type Department Care Team (Late st Contact Info) Description 09/04/2019 Orders Only [facility] [address] [place] [phone] Elle Acuna MD [address] [place] [address] [place] [address] Localized swelling of left lower extremity (Primary Dx) Social History Tobacco Use Types [...] as of this encounter Visit Diagnoses Diagnosis Localized swelling of left lower extremity- Primary documented in this encounter Care Teams Endocrinologist Relationship Specialty Start Date End Date Elle Acuna MD PCP - General Internal Medicine 03/30/19 documented as of this encounter
--- OUTSIDE RECORDS SUMMARY | 2024-05-26 02:43 | XMS_ITS | Encounter Summary ---
Author Organization [facility] Address [address] [place] [address] Care Team Providers Care Treatment Specialist Name Role Phone Elle Acuna MD Primary Care Provider Reason for Referral * Diagnostic Imaging (Routine) - Closed Specialty Diagnoses / Procedures Referred By Contac t Referred To Contact Diagnoses Encounter for screening mammogram for malignant neoplasm of breast Procedures Screening Mammogram Bilateral W Elle Valente MD Phone: tel: fax: [facility] [address] [address] [place] [phone] Referral ID Status Reason Start Date Expiration Date Visits Re quested Visits Authorized [id number] Closed 09/02/2020 10/02/2021 1 1 Reason for Visit * Reason Comments Preventative Care Encounter Details Date Type Department Care Team (Late st Contact Info) Description 09/02/2020 10:30 AM CDT Office Visit [facility] [address] [place] [phone] Elle Acuna MD [address] [place] [phone] Encounter for preventive care (Primary Dx); Essential hypertension; Atypical migraine; Paresthesias; Blood glucose elevated; Encounter for screening mammogram for malignant neoplasm of breast; Morbid obesity with BMI of 50.0-59.9, adult ([facility]) Social History Tobacco Use Types [...] Sign Reading Time Taken Comments Blood Pressure 124/72 09/02/2020 10:26 AM CDT Pulse 80 09/02/2020 10:26 AM CDT Temperature - - Respiratory Rate - - Oxygen Saturation 98% 09/02/2020 10:26 AM CDT Inhaled Oxygen Concentration - - Weight 151 kg (333 lb) 09/02/2020 10:26 AM CDT Height 172.7 cm (5' 8 ) 09/02/2020 10:52 AM CDT Body Mass Index 50.63 09/02/2020 10:26 AM CDT documented in this encounter Patient Instructions * Patient Instructions* Elle Acuna MD - 09/02/2020 10:30 AM CDT Goal 1800 calories/day Exercise (walking) 150 minutes per week If not losing weight in 1 month, schedule appointment and we can discuss medication. Schedule mammogram documented in this encounter Progress Notes * Elle Acuna MD - 09/02/2020 10:30 AM CDT Iveth Lopezemmanuel 1980 Chief Complaint Patient presents with ??? Preventative Care Ms. Montoya is a 40 year old female with a history of atypical migraines and HTN who presents for an annual preventive exam. Went to the ER about 1 month ago, July 31, because she had developed severe fatigue/exhaustion, also had tingling in her left arm up into her jaw. Had had an episode of diarrhea the day before.She was not tested for COVID. They did chest x-ray, EKG, and labs which were reportedly unremarkable. She was concerned she might have a blood clot as her brother has had many blood clots and recently tested positive for something for which she has been referred to a specialist, they are not sure what exactly he has been diagnosed with. She also had an uncle recent DVT and PE. She did not have any swelling, discoloration, or pain in her left upper extremity. Her symptoms only occurred this 1 time and have since resolved. She did have 1 other episode where she had a visual aura with numbness in her bilateral jaw. Her atypical migraine symptoms have otherwise been completely absent since we started topiramate. She has not been exercising regularly though recently started taking her dog for walks again, aims for about 2 miles per day. She has not been watching what she eats. Review of Systems Constitutional: Negative for fatigue and unexpected weight change. HENT: Negative for hearing loss. Eyes: Negative for visual disturbance. Respiratory: Negative for cough and shortness of breath. Cardiovascular: Negative for chest pain, palpitations and leg swelling. Gastrointestinal: Negative for abdominal pain and nausea. Endocrine: Negative for polydipsia and polyuria. Genitourinary: Negative for dysuria and hematuria. Musculoskeletal: Negative for back pain. Skin: Negative for rash. Neurological: Negative for light-headedness and headaches. Hematological: Negative for adenopathy. Psychiatric/Behavioral: Negative for dysphoric mood and suicidal ideas. BMI Body mass index is 50.63 kg/m??. Vitals BP 124/72 (BP Location: Left arm, Patient Position: Sitting) Pulse 80 Ht 172.7 cm (5' 8 ) Wt (!) 151 kg (333 lb) SpO2 98% BMI 50.63 kg/m?? Physical Exam Vitals reviewed. Constitutional: Appearance: She is well-developed. She is obese. HENT: Head: Normocephalic and atraumatic. Right Ear: Tympanic membrane and ear canal normal. Left Ear: Tympanic membrane and ear canal normal. Eyes: Conjunctiva/sclera: Conjunctivae normal. Pupils: Pupils are equal, round, and reactive to light. Neck: Thyroid: No thyromegaly. Cardiovascular: Rate and Rhythm: Normal rate and regular rhythm. Pulmonary: Effort: Pulmonary effort is normal. Breath sounds: Normal breath sounds. Abdominal: Palpations: Abdomen is soft. Tenderness: There is no abdominal tenderness. Musculoskeletal: General: Normal range of motion. Cervical back: Normal range of motion and neck supple. Right lower leg: Edema present. Left lower leg: Edema present. Lymphadenopathy: Cervical: No cervical adenopathy. Skin: General: [...] Diagnoses and all orders for this visit: Encounter for preventive care (Primary) Essential hypertension Assessment & Plan: BP well controlled Encouraged lifestyle modifications Orders: - CBC with auto differential; Future - Comprehensive metabolic panel; Future - Lipid panel; Future - TSH reflex to free T4; Future Atypical migraine Assessment & Plan: Continue topiramate 50 daily Suspect the tingling she experienced is related to this. Could consider Neurology consult Will also check A1c, B12 and iron levels Paresthesias - Vitamin B12; Future - Iron profile w/ IBC; Future - Ferritin; Future Blood glucose elevated - Hemoglobin A1c; Future Encounter for screening mammogram for malignant neoplasm of breast - Screening Mammogram Bilateral W Enrique; Future Morbid obesity with BMI of 50.0-59.9, adult ([facility]) Assessment & Plan: BMI Follow-up includes: nutrition counseling, exercise counseling and education provided. Start calorie counting, goal 1800 calories per day Increase exercise with goal of 2-1/2 hours per week If struggles to lose weight, could consider increasing to urinate or starting an additional agent. Will check A1c to determine if she would be a candidate for GLP 1 agonists. Orders: - Vitamin D 25 hydroxy; Future documented in this encounter Miscellaneous Notes * Assessment & Plan Note - Elle Acuna MD - 09/02/2020 11:18 AM CDT Associated Problem(s): Atypical migraine Continue topiramate 50 daily Suspect the tingling she experienced is related to this. Could consider Neurology consult Will also check A1c, B12 and iron levels * Assessment & Plan Note - Elle Acuna MD - 09/02/2020 11:18 AM CDT Associated Problem(s): Essential hypertension BP well controlled Encouraged lifestyle modifications * Assessment & Plan Note - Lilia Anne MA - 09/02/2020 10:35 AM CDT Associated Problem(s): Morbid obesity with BMI of 50.0-59.9, adult ([facility]) BMI Follow-up includes: nutrition counseling, exercise counseling and education provided. Start calorie counting, goal 1800 calories per day Increase exercise with goal of 2-1/2 hours per week If struggles to lose weight, could consider increasing to urinate or starting an additional agent. Will check A1c to determine if she would be a candidate for GLP 1 agonists. documented in this encounter Plan of Treatment Not on file documented as of this encounter Procedures Procedure Name Priority Date/Time Associated Diagnosis Comments THYROID FUNCTION CASCADE Routine 09/02/2020 11:10 AM CDT Essential hypertension IRON PROFILE W/ IBC Routine 09/02/2020 1 1:10 AM CDT Paresthesias CBC WITH AUTO DIFFERENTIAL Routine 09/02/2020 11:10 AM CDT Essential hypertension VITAMIN D 25 HYDROXY Routine 09/02/2020 11:10 AM CDT Morbid obesity with BMI of 50.0-59.9, adult ([facility]) HEMOGLOBIN A1C Routine 09/02/2020 11:10 AM CDT Blood glucose elevated FERRITIN Routine 09/02/2020 11:10 AM CDT Paresthesias VITAMIN B12 Routine 09/02/2020 11:10 AM CDT Paresthesias LIPID PANEL Routine 09/02/2020 11:10 AM CDT Essential hypertension COMPREHENSIVE METABOLIC PANEL Routine 09/02/2020 11:10 AM CDT Essential hypertension documented in this encounter Results * Screening Mammogram Bilateral W Enrique [...] MD IMG MAMMO PROCEDURES F inal Result * Ferritin (09/02/2020 11:10 AM CDT) Ferritin 42 16 - 154 ng/mL [facility] Blood specimen (specimen) 09/02/2020 11:10 AM CDT 09/03/2020 3:20 AM CDT Elle Acuna MD LAB BLOOD ORDERABLES F inal Result Performing Organization Address [facility]/ZIP Co de Phone Number [facility] [address] [place] [address] * Iron profile w/ IBC (09/02/2020 11:10 AM CDT) Iron 84 40 - 190 mcg/dL [facility] TIBC 424 250 - 450 mcg/dL (calc) [facility] Iron saturation 20 16 - 45 % (calc) [facility] Blood specimen (specimen) 09/02/2020 11:10 AM CDT 09/03/2020 3:20 AM CDT Elle Acuna MD LAB BLOOD ORDERABLES F inal Result Performing Organization Address [facility] Co de Phone Number [facility] [address] [place] [address] * Vitamin B12 (09/02/2020 11:10 AM CDT) Pathologist [facility] Vitamin B12 424 200 - 1,100 pg/mL [facility] Blood specimen (specimen) 09/02/2020 11:10 AM CDT 09/03/2020 3:20 AM CDT Elle Acuna MD LAB BLOOD ORDERABLES F inal Result Performing Organization Address [facility] Co de Phone Number [facility] [address] [place] [address] * (ABNORMAL) Vitamin D 25 hydroxy (09/02/2020 11:10 AM CDT) Vitamin D 25-OH 23(L) 30 - 100 ng/mL [facility] Comment: Vitamin D Status ? 25-OH Vitamin D: Deficiency: ?<20 ng/mL Insufficiency: ? 20 - 29 ng/mL Optimal: ? > or = 30 ng/mL For 25-OH Vitamin D testing on patients on D2-supplementation and patients for whom quantitation of D2 and D3 fractions is required, the [facility]ure[facility](TM) 25-OH VIT D, (D2,D3), LC/MS/MS is recommended: order code 26448 (patients >2yrs). See Note 1 Note 1 For additional information, please refer to http://education.[employer]/faq/FXA578 (This link is being provided for informational/ educational purposes only.) Blood specimen (specimen) 09/02/2020 11:10 AM CDT 09/03/2020 3:20 AM CDT us Elle Acuna MD LAB BLOOD ORDERABLES F inal Result [facility] [address] [place] [address] * TSH reflex to free T4 (09/02/2020 11:10 AM CDT) TSH 1.34 mIU/L [facility] Comment: ?Reference Range ?> or = 20 Years ??0.40-4.50 ? Ranges ?First trimester ?0.26-2.66 ?Second trimester ?? 0.55-2.73 ?Third trimester ?0.43-2.91 Blood specimen (specimen) 09/02/2020 11:10 AM CDT 09/03/2020 3:20 AM CDT Elle Acuna MD LAB BLOOD ORDERABLES F inal Result Performing Organization Address [facility]/ZIP Co de Phone Number [facility] [address] [phone] * (ABNORMAL) Lipid panel (09/02/2020 11:10 AM CDT) Pathologist [facility] Cholesterol 197 <200 mg/dL [facility] HDL 72 > OR = 50 mg/dL [facility] Triglycerides 116 <150 mg/dL [facility] LDL 104(H) mg/dL (calc) [facility] Comment: Reference range: <100 Desirable range <100 mg/dL for primary prevention; ?? <70 mg/dL for patients with CHD or diabetic patients with > or = 2 CHD risk factors. LDL-C is now calculated using the Gulshan-Keren calculation, which is a validated novel method providing better accuracy than the Friedewald equation in the estimation of LDL-C. Gulshan SS et al. SERA. 2013;310(19): 0923-2982 (http://education.[employer]/faq/QFF037) Chol/HDL ratio 2.7 <5.0 (calc) [facility] Non-HDL, (LDL+VLDL) 125 <130 mg/dL (calc) [facility] Comment: For patients with diabetes plus 1 major ASCVD risk factor, treating to a non-HDL-C goal of <100 mg/dL (LDL-C of <70 mg/dL) is considered a therapeutic option. Blood specimen (specimen) 09/02/2020 11:10 AM CDT 09/03/2020 3:20 AM CDT Elle Acuna MD LAB BLOOD ORDERABLES F inal Result Performing Organization Address [facility]/ZIP Co de Phone Number [facility] [address] [address] [phone] * Comprehensive metabolic panel (09/02/2020 11:10 AM CDT) Glucose 92 65 - 99 mg/dL [facility] Comment: ? Fasting reference interval BUN 13 7 - 25 mg/dL [facility] Creatinine 0.79 0.50 - 1.10 mg/dL [facility] eGFR NON-AFR. [place] 94 > OR = 60 mL/min/1. 73m2 [facility] EGFR 109 > OR = 60 mL/min/1. 73m2 [facility] BUN/creat ratio NOT APPLICABLE 6 - 22 (calc) [facility] Sodium 139 135 - 146 mmol/L [facility] Potassium, pl 4.1 3.5 - 5.3 mmol/L [facility] Chloride 109 98 - 110 mmol/L [facility] CO2 21 20 - 32 mmol/L [facility] Calcium 9.6 8.6 - 10.2 mg/dL [facility] Protein, sr 7.0 6.1 - 8.1 g/dL [facility] Albumin 4.0 3.6 - 5.1 g/dL [facility] GLOBULIN 3.0 1.9 - 3.7 g/dL (calc) [facility] Alb/glob ratio 1.3 1.0 - 2.5 (calc) [facility] Bilirubin, total 0.4 0.2 - 1.2 mg/dL [facility] Alk phos 51 31 - 125 U/L [facility] AST 16 10 - 30 U/L [facility] ALT (SGPT) 16 6 - 29 U/L [facility] Blood specimen (specimen) 09/02/2020 11:10 AM CDT 09/03/2020 3:20 AM CDT Elle Acuna MD LAB BLOOD ORDERABLES F inal Result [facility] [address] [place] [address] * CBC with auto differential (09/02/2020 11:10 AM CDT) WBC 7.3 3.8 - 10.8 Thousand/u L [facility] RBC, POC 4.69 3.80 - 5.10 Million/uL [facility] Hgb 14.3 11.7 - 15.5 g/dL [facility] Hct 42.7 35.0 - 45.0 % [facility] MCV 91.0 80.0 - 100.0 fL [facility] MCH 30.5 27.0 - 33.0 pg [facility] MCHC 33.5 32.0 - 36.0 g/dL [facility] Rdw 12.7 11.0 - 15.0 % [facility] Platelets 217 140 - 400 Thousand/u L [facility] MPV 10.7 7.5 - 12.5 fL [facility] Neutrophils, abs 4,643 1,500 - 7,800 cells/uL [facility] Lymphocytes, abs 1,964 850 - 3,900 cells/uL [facility] Monocyte abs 526 200 - 950 cells/uL [facility] Eosinophils, abs 124 15 - 500 cells/uL [facility] Basophils, abs 44 0 - 200 cells/uL [facility] Neutrophils 63.6 % [facility] Lymphocyte pct 26.9 % [facility] Monocytes 7.2 % [facility] Eosinophils 1.7 % [facility] Basophils 0.6 % [facility] Blood specimen (specimen) 09/02/2020 11:10 AM CDT 09/03/2020 3:20 AM CDT us Elle Acuna MD LAB BLOOD ORDERABLES F inal Result [facility] [address] [place] [address] * Hemoglobin A1c (09/02/2020 11:10 AM CDT) Hgb A1C 4.9 <5.7 % of total Hgb [facility] Comment: For the purpose of screening for the presence of diabetes: <5.7% ? Consistent with the absence of diabetes 5.7-6.4% ?Consistent with increased risk for diabetes ?(prediabetes) > or =6.5% ??Consistent with diabetes This assay result is consistent with a decreased risk of diabetes. Currently, no consensus exists regarding use of hemoglobin A1c for diagnosis of diabetes in children. According to [place] Diabetes Association (ADA) guidelines, hemoglobin A1c <7.0% represents optimal control in non- diabetic patients. Different metrics may apply to specific patient populations. Standards of Medical Care in Diabetes(ADA). ?? Blood specimen (specimen) 09/02/2020 11:10 AM CDT 09/03/2020 3:20 AM CDT Elle Acuna MD LAB BLOOD ORDERABLES F inal Result [facility] [address] [place] [address] documented in this encounter Visit Diagnoses Diagnosis Encounter for preventive care- Primary Essential hypertension Unspecified essential hypertension Atypical migraine Other forms of migraine, without mention of intractable migraine without mention of status migrainosus Paresthesias Disturbance of skin sensation Blood glucose elevated Other abnormal glucose Encounter for screening mammogram for malignant neoplasm of breast Morbid obesity with BMI of 50.0-59.9, adult (HCC) Encounter for screening mammogram for malignant neoplasm of breast documented in this encounter Care Teams Treatment Specialist Relationship Specialty Start Date End Date Elle Acuna MD PCP - General Internal Medicine 03/30/19 documented as of this encounter
--- OUTSIDE RECORDS SUMMARY | 2024-05-26 02:43 | XMS_ITS | Encounter Summary ---
Author Organization [facility] Address [address] [address] Care Team Providers Care Towboat Captain Name Role Phone Elle Acuna MD Primary Care Provider Reason for Visit * Reason Comments Sore Throat Sore throat and ear pain bilateral Earache Encounter Details Date Type Department Care Team (Late st Contact Info) Description 09/19/2022 12:00 PM CDT Office Visit [facility] [address] [phone] Kia Marroquin, RETURNED MATERIALS INSPECTOR [address] [place] [address] Strep pharyngitis (Primary Dx); Sore throat Social History Tobacco Use Types Packs/Day Years [...] Mass Index 51.69 09/19/2022 12:05 PM CDT documented in this encounter Patient Instructions * Patient Instructions* Kia Marroquin NP - 09/19/2022 12:00 PM CDT ?? Complete antibiotic as prescribed. Take antibiotic with food and a glass of water. Eat yogurt ortake probiotic daily while on antibiotics. ?? Take Tylenol or Motrin for fever/pain. ?? May use over the counter sore throat spray like Chloraseptic for pain. ?? Gargle with warm salt water (1tsp salt/1 cup water) ?? Drink warm tea with honey and lemon or broth to soothe pain. ?? Suck on ice chips, popsicles, cough drops, or throat lozenges. ?? You may return to work, daycare, or school 24 hours after starting antibiotics and you are feverfree without use of Tylenol or Motrin. ?? Strep pharyngitis is contagious. Do not share food, drinks, or utensils. Wash your hands frequently. ?? Replace your toothbrush within 48 hours after starting antibiotics. Please follow up with your PCP if you are not getting any better Swabbed for COVID-19 today in clinic. Test result was negative. Advised that this result may change, and to continue isolation until symptoms are gone. Importance of hydration for healthy immune system discussed. Continue safe practices of social distancing and mask wearing where appropriate - such as high riskareas. * Attachments The following attachments cannot be sent through Care Everywhere. * Pharyngitis (Crematorium Operator) (Italian) documented in this encounter Ordered Prescriptions Prescription Sig Dispense Quantity Refills Last Filled Start Date End Date amoxicillin (AMOXIL) 500 mg tablet/capsuleIndic ations:Strep pharyngitis Take 1 tablet/caps ule (500 mg total) by mouth 3 (three) times a day for 10 days 30 tablet/capsule 09/19/2022 09/29/2022 documented in this encounter Progress Notes * Kia Marroquin, RETURNED MATERIALS INSPECTOR - 09/19/2022 12:00 PM CDT Images from the original note were not included. Subjective/Objective Patient ID: Iveth Montoya is a 42 y.o. female. Chief Complaint Sore Throat (Sore throat and ear pain bilateral ) and Earache Sore Throat The current episode started today. The problem has been rapidly worsening. The pain is worse on theleft side. There has been no fever. The pain is at a severity of 6/10. Associated symptoms include congestion, ear pain, a plugged ear sensation and trouble swallowing. Pertinent negatives include noabdominal pain, coughing, diarrhea, drooling, hoarse voice, shortness of breath or vomiting. She has had exposure to strep. Review of Systems Constitutional: Negative for fatigue and fever. HENT: Positive for congestion, ear pain, sore throat and trouble swallowing. Negative for drooling and hoarse voice. Respiratory: Negative for cough, chest tightness and shortness of breath. Cardiovascular: Negative for chest pain. Gastrointestinal: Negative for abdominal pain, diarrhea, nausea and vomiting. Skin: Negative for color change. Neurological: Negative for dizziness. Hematological: Negative for adenopathy. Psychiatric/Behavioral: Negative for confusion. Physical Exam Constitutional: General: She is not in acute distress. HENT: Right Ear: Tympanic membrane normal. Left Ear: Tympanic membrane normal. Nose: No congestion or rhinorrhea. Mouth/Throat: Pharynx: Pharyngeal swelling and posterior oropharyngeal erythema present. Tonsils: Tonsillar exudate present. No tonsillar abscesses. 2+ on the right. 2+ on the left. Eyes: Conjunctiva/sclera: Conjunctivae normal. Cardiovascular: Rate and Rhythm: Regular rhythm. Heart sounds: Normal heart sounds. Pulmonary: Effort: No respiratory distress. Breath sounds: No wheezing, rhonchi or rales. Abdominal: Palpations: Abdomen is soft. Lymphadenopathy: Cervical: No cervical adenopathy. Skin: Findings: No rash. Neurological: Mental Status: She is alert. Psychiatric: Behavior: Behavior normal. Vitals: 09/19/22 1205 BP: 133/93 BP Location: Right arm Patient Position: Sitting Pulse: 84 Resp: 20 Temp: 37.1 ??C (98.7 ??F) TempSrc: Oral SpO2: 100% Weight: (!) 158.8 kg (350 lb) Height: 175.3 cm (5' 9 ) Assessment/Plan ?? Complete antibiotic as prescribed. Take antibiotic with food and a glass of water. Eat yogurt ortake probiotic daily while on antibiotics. ?? Take Tylenol or Motrin for fever/pain. ?? May use over the counter sore throat spray like Chloraseptic for pain. ?? Gargle with warm salt water (1tsp salt/1 cup water) ?? Drink warm tea with honey and lemon or broth to soothe pain. ?? Suck on ice chips, popsicles, cough drops, or throat lozenges. ?? You may return to work, daycare, or school 24 hours after starting antibiotics and you are feverfree without use of Tylenol or Motrin. ?? Strep pharyngitis is contagious. Do not share food, drinks, or utensils. Wash your hands frequently. ?? Replace your toothbrush within 48 hours after starting antibiotics. Please follow up with your PCP if you are not getting any better Swabbed for COVID-19 today in clinic. Test result was negative. Advised that this result may change, and to continue isolation until symptoms are gone. Importance of hydration for healthy immune system discussed. Continue safe practices of social distancing and mask wearing where appropriate - such as high riskareas. Diagnoses and all orders for this visit: Strep pharyngitis (Primary) - amoxicillin (AMOXIL) 500 mg tablet/capsule; Take 1 tablet/capsule (500 mg total) by mouth 3 (three) times a day for 10 days Sore throat - POCT rapid strep A - POC Influenza A/B, COVID-19 antigen Disposition- Discussed medications dosages, usage & potential side effects. Risks and interactions reviewed with patient. Indications for testing reviewed. Patient has been instructed to follow up w PCP or go to ER for any signs or symptoms that are of concern or worsening. Patient verbalizes understanding. The patient was given the opportunity to ask all questions and to have all questions answered. Patient is in agreement with the plan of care Kia Marroquin NP documented in this encounter Plan of Treatment Not on file documented as of this encounter Procedures Procedure Name Priority Date/Time Associated Diagnosis Comments POC INFLUENZA A/B, COVID-19 ANTIGEN Routine 09/19/2022 12:29 PM CDT Sore throat POCT RAPID STREP Routine 09/19/2022 12:2 2 PM CDT Sore throat documented in this encounter Results * POC Influenza A/B, COVID-19 antigen (09/19/2022 12:29 PM CDT) Influenza A Ag, POC Negative Negative [facility] Influenza B Ag, POC Negative Negative [facility] COVID-19 Ag POC Presumptive Negative Presumptive Negative, Invalid [facility] Nasal 09/19/2022 12:2 9 PM CDT Kia Marroquin RETURNED MATERIALS INSPECTOR POINT OF CARE TEST ORDERABLES Final Result Performing Organization Address City/State/[facility] Co de Phone Number [facility] [address] [place] [address] * (ABNORMAL) POCT rapid strep A (09/19/2022 12:22 PM CDT) Rapid Strep A, POC Positive(A ) Negative Swab 09/19/2022 12:2 2 PM CDT us Kia Marroquin RETURNED MATERIALS INSPECTOR POINT OF CARE TEST ORDERABLES Final Result documented in this encounter Visit Diagnoses Diagnosis Strep pharyngitis- Primary Sore throat Acute pharyngitis documented in this encounter Additional Health Concerns Infection Onset Date Last Indicated Resolved Time COVID: Suspected 09/19/2022 09/19/202209/19/2022 12:30 PM CDT documented as of this encounter Care Teams Towboat Captain Relationship Specialty Start Date End Date Elle Acuna MD PCP - General Internal Medicine 03/30/19 documented as of this encounter
--- OUTSIDE RECORDS SUMMARY | 2024-05-26 02:43 | XMS_ITS | Encounter Summary ---
Author Organization [facility] Address [address] [facility] [address] [place] [address] Care Team Providers Care Boom Conveyor Operator Name Role Phone Elle Acuna MD Primary Care Provider Reason for Visit * Reason Onset Date Comments Covid-19 Home Monitoring 12/06/2021 Non-res ponder Encounter Details Date Type Department Care Team (Late st Contact Info) Description 12/06/2021 Telephone [facility] Accountable Care Organization [address] [place] [id number] Usha Rowe MA [address] [facility] [address] [place] [address] Covid-19 Home Monitoring (Non-responder) Social History Tobacco Use Types Packs/Day Years [...] encounter Miscellaneous Notes * Telephone Encounter - Usha Byrd MA - 12/06/2021 1:44 PM CDT This patient is enrolled in the COVID-19 Home Monitoring Program and had not responded to the dailysymptom questionnaire. Telephonic outreach attempted to assess patient???s symptoms. Home Monitoring symptom questionnaire was not completed today, because the patient could not be reached. Symptom Questionnaire to be completed by patient tomorrow. documented in this encounter Plan of Treatment Not on file documented as of this encounter Visit Diagnoses Not on filedocumented in this encounter Additional Health Concerns Infection Onset Date Last Indicated Resolved Time COVID19 11/28/2021 11/28/2021 12/08/2021 3:05 AM CDT documented as of this encounter Care Teams Boom Conveyor Operator Relationship Specialty Start Date End Date Elle Acuna MD PCP - General Internal Medicine 03/30/19 documented as of this encounter
--- OUTSIDE RECORDS SUMMARY | 2024-05-26 02:43 | XMS_ITS | Encounter Summary ---
Author Organization [facility] Address [address] [facility] [address] [address] [place] [address] Care Team Providers Care Ciaio Counter Molder Name Role Phone Elle Acuna MD Primary Care Provider Reason for Visit * Reason Comments Fever 3x days Diarrhea Generalized Body Aches Encounter Details Date Type Department Care Team (Late st Contact Info) Description 08/07/2019 1:45 PM RETAIL ADVERTISING SALES MANAGER Office Visit [facility] [address] [facility] [address] [place] [phone] Elle Acuna MD [address] [place] [address] [place] [address] Fever, unspecified fever cause (Primary Dx); Morbid obesity with BMI of 45.0-49.9, adult ([facility]) Social History Tobacco Use Types Packs/Day Years [...] Sign Reading Time Taken Comments Blood Pressure 144/80 08/07/2019 1:39 PM RETAIL ADVERTISING SALES MANAGER Pulse 106 08/07/2019 1:39 PM RETAIL ADVERTISING SALES MANAGER Temperature 36.9 ??C (98.4 ??F) 08/07/2019 1:39 PM CS T Respiratory Rate - - Oxygen Saturation 98% 08/07/2019 1:39 PM RETAIL ADVERTISING SALES MANAGER Inhaled Oxygen Concentration - - Weight 140.6 kg (310 lb) 08/07/2019 1:39 PM RETAIL ADVERTISING SALES MANAGER Height 172.7 cm (5' 8 ) 08/07/2019 1:39 PM RETAIL ADVERTISING SALES MANAGER Body Mass Index 47.14 08/07/2019 1:39 PM RETAIL ADVERTISING SALES MANAGER documented in this encounter Progress Notes * Elle Acuna MD - 08/07/2019 1:45 PM CST Iveth Montoya 1980 Chief Complaint Patient presents with ??? Fever 3x days ??? Diarrhea ??? Generalized Body Aches 3 days of fevers, diarrhea, nausea, sinus pressure, sore throat, ear pressure, sweats No shortness of breath She has no sick contacts. Everyone at work has been sick with similar symptoms but she hasn't been at work for 2 weeks due to her knee. 2 weeks ago, sat down on toilet and felt a pop in her knee. Went to ER and diagnosed with knee sprain. Visited orthopedist and referred to PT. First PT appointment . Pain is posterior and hassome associated swelling. Review of Systems Constitutional: Positive for appetite change, fatigue and fever. Negative for chills. HENT: Positive for rhinorrhea, sinus pressure and sore throat. Negative for ear pain. Respiratory: Negative for cough and shortness of breath. Cardiovascular: Positive for leg swelling. Negative for chest pain. Gastrointestinal: Positive for diarrhea and nausea. Negative for abdominal pain and vomiting. Genitourinary: Negative for dysuria. Musculoskeletal: Positive for arthralgias. Neurological: Negative for light-headedness and headaches. Hematological: Negative for adenopathy. Psychiatric/Behavioral: Negative for sleep disturbance. BMI Body mass index is 47.14 kg/m??. Vitals BP 144/80 (BP Location: Left arm, Patient Position: Sitting) Pulse 106 Temp 36.9 ??C (98.4 ??F) (Oral) Ht 172.7 cm (5' 8 ) Wt (!) 140.6 kg (310 lb) SpO2 98% BMI 47.14 kg/m?? Physical Exam Vitals signs reviewed. Constitutional: Appearance: Normal appearance. HENT: Head: Normocephalic and atraumatic. Right Ear: Tympanic membrane and ear canal normal. Left Ear: Tympanic membrane and ear canal normal. Mouth/Throat: Mouth: Mucous membranes are moist. Pharynx: No oropharyngeal exudate or posterior oropharyngeal erythema. Eyes: Conjunctiva/sclera: Conjunctivae normal. Cardiovascular: Rate and Rhythm: Normal rate and regular rhythm. Pulmonary: Effort: Pulmonary effort is normal. Breath sounds: Normal breath sounds. No wheezing, rhonchi or rales. Abdominal: Palpations: Abdomen is soft. Tenderness: There is no abdominal tenderness. Skin: General: Skin is warm and dry. Neurological: General: No focal deficit present. Mental Status: She is alert and oriented to person, place, and time. Psychiatric: Mood and Affect: Mood normal. Behavior: Behavior normal. No notes on file Assessment and Plan Diagnoses and all orders for this visit: Fever, unspecified fever cause (Primary) Assessment & Plan: Likely viral illness given constellation of symptoms including respiratory and GI symptosm Recommend fluids, rest, bland diet Call if no improvement or symptoms worsen Morbid obesity with BMI of 45.0-49.9, adult ([facility]) Assessment & Plan: BMI Follow-up includes: nutrition counseling, exercise counseling and education provided. [place] ADVERTISING SALES MANAGER documented in this encounter Miscellaneous Notes * Assessment & Plan Note - Elle Acuna MD - 08/07/2019 2:00 PM RETAIL ADVERTISING SALES MANAGER Associated Problem(s): Fever (Resolved 08/25/2019) Likely viral illness given constellation of symptoms including respiratory and GI symptosm Recommend fluids, rest, bland diet Call if no improvement or symptoms worsen [place] ADVERTISING SALES MANAGER * Assessment & Plan Note - Santos Romano MA - 08/07/2019 1:42 PM CSTAssociated Problem(s): Morbid obesity with BMI of 50.0-59.9, adult ([facility]) BMI Follow-up includes: nutrition counseling, exercise counseling and education provided. [place] ADVERTISING SALES MANAGER documented in this encounter Plan of Treatment Not on file documented as of this encounter Procedures Procedure Name Priority Date/Time Associated Diagnosis Comments POCT INFLUENZA A/B Routine 08/07/2019 2: 22 PM RETAIL ADVERTISING SALES MANAGER Fever, unspecified fever cause documented in this encounter Results * POCT influenza A/B (08/07/2019 2:22 PM RETAIL ADVERTISING SALES MANAGER) Rapid Influenza A Ag Negative Negative, Invalid Rapid Influenza B Ag Negative Negative, Invalid Nasal 08/07/2019 2:22 PM RETAIL ADVERTISING SALES MANAGER Elle Acuna MD POINT OF CARE TEST ORD ERABLES Final Result documented in this encounter Visit Diagnoses Diagnosis Fever, unspecified fever cause- Primary Morbid obesity with BMI of 45.0-49.9, adult ([facility]) documented in this encounter Historical Medications * This list may reflect changes made after this encounter. Medication Sig Dispense Quantity Refills Last Filled Start D ate End Date HYDROcodone-acetamino phen (NORCO) 7.5-325 mg per tablet 07/24/2019 10/05/2019 added in this encounter Care Teams Ciaio Counter Molder Relationship Specialty Start Date End Date Elle Acuna MD PCP - General Internal Medicine 03/30/19 documented as of this encounter
--- OUTSIDE RECORDS SUMMARY | 2024-05-26 02:43 | XMS_ITS | Encounter Summary ---
Author Organization [facility] Address [address] [place] [address] [address] [place] [address] Care Team Providers Care Wharf Helper Name Role Phone Elle Acuna MD Primary Care Provider Reason for Visit * Reason Onset Date Comments Covid-19 Home Monitoring 12/08/2021 Encounter Details Date Type Department Care Team (Late st Contact Info) Description 12/08/2021 Telephone [facility] Accountable Care Organization [address] [place] [phone] Angela Iraheta CMA [address] [place] [id number] Covid-19 Home Monitoring Social History Tobacco Use Types Packs/Day Years [...] encounter Miscellaneous Notes * Telephone Encounter - Angela Iraheta CMA - 12/08/2021 11:55 AM CDT This patient is being disenrolled from the [employer] COVID-19 Home Monitoring program for the following reason: Complete. The patient has either completed the full 14-day program or has expressed 3 days of improved or no symptoms and 7 days since initial onset. We recommend that they are scheduled for a telemedicine evaluation with a primary care provider within 3 days of completion of the program. For questions or concerns about the home monitoring program, please contact . documented in this encounter Plan of Treatment Not on file documented as of this encounter Visit Diagnoses Not on filedocumented in this encounter Additional Health Concerns Infection Onset Date Last Indicated Resolved Time COVID19 11/28/2021 11/28/2021 12/08/2021 3:05 AM CDT COVID: Recovered Comment:Added based on recent COVID infection. 12/08/2021 12/08/2021 04/07/2022 3:05 AM C DT documented as of this encounter Care Teams Wharf Helper Relationship Specialty Start Date End Date Elle Acuna MD PCP - General Internal Medicine 03/30/19 documented as of this encounter
--- OUTSIDE RECORDS SUMMARY | 2024-05-26 02:43 | XMS_ITS | Encounter Summary ---
Author Organization [facility] Address [address] [facility] [address] [place] [address] Care Team Providers Care Sports Specialist Name Role Phone Elle Acuna MD Primary Care Provider Reason for Visit * Reason Onset Date Comments Kalpana Medical Question 08/10/2019 Encounter Details Date Type Department Care Team (Late st Contact Info) Description 08/10/[address] [facility] [address] [facility] [address] [place] [phone] Elle Acuna MD [address] [place] [address] [place] [phone] Kalpana Medical Question Social History Tobacco Use Types Packs/Day Years [...] End Date amoxicillin (AMOXIL) 875 mg tabletIndications: Upper Respiratory/HEENT Infection Take 1 tablet (875 mg total) by mouth 2 (two) times a day for 5 days 10 tablet 08/10/2019 08/15/2019 documented in this encounter Miscellaneous Notes * Telephone Encounter - Santos Romano MA - 08/10/2019 12:38 PM CST Spoke with patient and informed of below. She understood and has received notification from her pharmacy. RNAL CONTROL ANALYST * Telephone Encounter - Elle Acuna MD - 08/10/2019 10:28 AM INTERNAL CONTROL ANALYST Amoxicillin sent RNAL CONTROL ANALYST * Telephone Encounter - Batsheva Salazar - 08/10/2019 8:20 AM CST General Medical Question/Miscellaneous-Sent Message: Caller's Concern: Patient wants to let Dr. Acuna that she is not feeling better after seeing her on 08.08.19. She still has a sore and swollen throat, clogged right ear and chills. Dr. Acuna mentioned calling in a prescription if she did not improve. Patient uses [facility]. Caller's Callback #: [phone] Did you relay expectation for processing (up to 24 hours)? Yes RNAL CONTROL ANALYST documented in this encounter Plan of Treatment Not on file documented as of this encounter Visit Diagnoses Not on filedocumented in this encounter Care Teams Sports Specialist Relationship Specialty Start Date End Date Elle Acuna MD PCP - General Internal Medicine 03/30/19 documented as of this encounter
--- OUTSIDE RECORDS SUMMARY | 2024-05-26 02:43 | XMS_ITS | Encounter Summary ---
Author Organization [facility] Address [address] [place] [address] Care Team Providers Care Human Resources Manager Manufacturing Name Role Phone Elle Acuna MD Primary Care Provider Reason for Referral * Diagnostic Imaging (Routine) - Closed Specialty Diagnoses / Procedures Referred By Abebe saldivar Referred To Contact Diagnoses Encounter for screening mammogram for malignant neoplasm of breast Procedures Screening Mammogram Bilateral W Elle Valente MD Phone: tel: fax: [place] [address] [place] [phone] Referral ID Status Reason Start Date Expiration Date Visits Re quested Visits Authorized [id number] Closed 09/02/2020 10/02/2021 1 1 Reason for Visit * Diagnostic Imaging (Routine) - Closed Specialty Diagnoses / Procedures Referred By Abebe saldivar Referred To Contact Diagnoses Encounter for screening mammogram for malignant neoplasm of breast Procedures Screening Mammogram Bilateral W Elle Valente MD Phone: tel: fax: [place] [address] [place] [phone] Referral ID Status Reason Start Date Expiration Date Visits Re quested Visits Authorized [id number] Closed 09/02/2020 10/02/2021 1 1 Encounter Details Date Type Department Care Team (Latest Contact Info) Description 09/23/2020 1:39 PM CDT - 09/23/2020 11:59 PM CDT Hospital Encounter [facility] [address] [facility] [address] [facility] [address] [place] [address] Elle Acuna MD [address] [place] [address] [place] [address] Encounter for screening mammogram for malignant neoplasm of breast Discharge Disposition: Discharge to home or self [...] tablet Take 1 tablet by mouth daily etonogestreL-eth inyl estradioL (EluRyng) 0.12-0.015 mg/24 hr vaginal ring Insert vaginally and leave in place for 3 consecutive weeks, then remove for 1 week. 1 each 12 09/13/2020 2 topiramate (TOPAMAX) 50 mg tabletIndication s:Migraine Prevention Take 1 tablet (50 mg total) [...] neoplasm of breast documented in this encounter Results * Screening [...] MD IMG MAMMO PROCEDURES F inal Result documented in this encounter Visit Diagnoses Diagnosis Encounter for screening mammogram for malignant neoplasm of breast documented in this encounter Care Teams Human Resources Manager Manufacturing Relationship Specialty Start Date End Date Elle Acuna MD PCP - General Internal Medicine 03/30/19 documented as of this encounter
--- OUTSIDE RECORDS SUMMARY | 2024-05-26 02:43 | XMS_ITS | Encounter Summary ---
Author Organization [facility] Address [address] [place] [address] Care Team Providers Care Software Quality Test Engineer Name Role Phone Elle Acuna MD Primary Care Provider Encounter Details Date Type Department Care Team (Late st Contact Info) Description 09/20/[address] [facility] [address] [place] [address] [address] [place] [address] Emily Nunez, RT Social History Tobacco Use Types Packs/Day Years [...] Suspected 09/14/2021 09/14/2021 09/14/2021 2:39 PM CDT COVID: Suspected 11/28/2021 11/28/2021 11/28/2021 2:37 PM CDT COVID19 11/28/2021 11/28/2021 12/08/2021 3:05 AM CDT COVID: Recovered Comment:Added based on recent COVID infection. 12/08/2021 12/08/2021 04/07/2022 3:05 AM C DT COVID: Suspected 09/19/2022 09/19/2022 09/19/2022 12:30 PM CDT documented as of this encounter Care Teams Software Quality Test Engineer Relationship Specialty Start Date End Date Elle Acuna MD PCP - General Internal Medicine 03/30/19 documented as of this encounter
--- OUTSIDE RECORDS SUMMARY | 2024-05-26 02:43 | XMS_ITS | Encounter Summary ---
Author Organization [facility] Healthcare Address [address] [place] [address] Care Team Providers Care Manager Lvn Name Role Phone Elle Acuna MD Primary Care Provider Encounter Details Date Type Department Care Team (Late st Contact Info) Description 02/26/2020 Patient Self-Triage [facility] Phys[facility] [address] [place] [address] Mycmindyt, Generic Provider [address] [place], [place] [id number] Social History Tobacco Use Types Packs/Day Years [...] on filedocumented in this encounter Care Teams Manager Lvn Relationship Specialty Start Date End Date Elle Acuna MD PCP - General Internal Medicine 03/30/19 documented as of this encounter
--- OUTSIDE RECORDS SUMMARY | 2024-05-26 02:43 | XMS_ITS | Encounter Summary ---
Author Organization [facility] Medical Group Address [address] [place] [address] [address] [place] [address] Care Team Providers Care Interviewing Clerk Name Role Phone Elle Acuna MD Primary Care Provider Reason for Visit * Reason Onset Date Comments Covid-19 Home Monitoring 12/04/2021 Encounter Details Date Type Department Care Team (Late st Contact Info) Description 12/04/2021 Telephone [facility] Accountable Care Organization [address] [place] [id number] Yonas Clay, TANIA [address] [place] [address] [address] [place] [address] Covid-19 Home Monitoring Social History Tobacco Use [...] encounter Miscellaneous Notes * Telephone Encounter - Yonas Clay RN - 12/04/2021 11:51 AM CDT COVID Home Monitoring blacksmith apprentice Call Patient questionnaire escalated for strategic alliances manager due to: Diarrhea Brief description of reason for call: pt reports worsening diarrhea - pt states taking otc pepto with some relief. Pt confirms good hydration. Pt states has claminess feeling after taking tylenol - pt advised not a common effects and if continues recommending talking to pcp. Pt denies any immediateneeds and is comfortable with monitoring her symptoms. strategic alliances manager of each of the following symptoms the patient reported (complete all that apply): - Respiratory Distress: No - Dehydration: No - Fever: No - Chest Pain: No - Other symptoms: No Instructions provided to patient: pt reports worsening diarrhea - pt states taking otc pepto with some relief. Pt confirms good hydration. Pt states has claminess feeling after taking tylenol - pt advised not a common effects and if continues recommending talking to pcp. Pt denies any immediate needs and is comfortable with monitoring her symptoms. Follow-up Plan Provided to Patient: Continue to Self-Monitor.COVID-19 Home Monitoring Flowsheet Answers: Temp/Pulse Ox Symptom Monitoring Are you feeling short of breath today?: No Are you having a cough today?: Yes Cough Details:: Same Are you experiencing weakness today?: No How is your appetite compared to yesterday?: Worse Are you vomiting?: No Are you experiencing diarrhea? : Yes Diarrhea Details:: Worse documented in this encounter Plan of Treatment Not on file documented as of this encounter Visit Diagnoses Not on filedocumented in this encounter Additional Health Concerns Infection Onset Date Last Indicated Resolved Time COVID19 11/28/2021 11/28/2021 12/08/2021 3:05 AM CDT documented as of this encounter Care Teams Interviewing Clerk Relationship Specialty Start Date End Date Elle Acuna MD PCP - General Internal Medicine 03/30/19 documented as of this encounter
--- OUTSIDE RECORDS SUMMARY | 2024-05-26 02:43 | XMS_ITS | Encounter Summary ---
Author Organization [facility] Healthcare Address [address] [place] [address] Care Team Providers Care Private Branch Exchange Service Adviser Name Role Phone Elle Acuna MD Primary Care Provider Encounter Details Date Type Department Care Team (Late st Contact Info) Description 12/05/2021 9:40 PM CDT Lab [address] [address] Sore throat Social History Tobacco Use Types [...] Procedure Name Priority Date/Time Associated Diagnosis Comments THROAT CULTURE Routine 12/05/2021 6:36 PM CDT Sore throat documented in this encounter Results * Throat culture Throat (12/05/2021 6:36 PM CDT) Report Final Report: No growth of pathogens. ALEJO HERRERA Comment:Testing performed by : [facility], [address] [place] [address] Throat 12/05/2021 6:36 PM CDT 12/06/2021 3:09 AM CDT Vaishali ALEJO SHARON - 12/07/2021 1:41 PM CDT Testing performed by [facility] Laboratory ([phone]). us Maranda Fountain NP LAB MICROBIOLOGY - [facility] EMANUEL LOZANO Final Result [facility] [address] Department [place] [address] documented in this encounter Visit Diagnoses Diagnosis Sore throat Acute pharyngitis documented in this encounter Additional Health Concerns Infection Onset Date Last Indicated Resolved Time COVID19 11/28/2021 11/28/2021 12/08/2021 3:05 AM CDT documented as of this encounter Care Teams Private Branch Exchange Service Adviser Relationship Specialty Start Date End Date Elle Acuna MD PCP - General Internal Medicine 03/30/19 documented as of this encounter
--- OUTSIDE RECORDS SUMMARY | 2024-05-26 02:43 | XMS_ITS | Encounter Summary ---
Author Organization [facility] Medical Group Address [address] [place] [address] Care Team Providers Care Manager Truck Name Role Phone Elle Acuna MD Primary Care Provider Reason for Referral * Diagnostic Imaging (Routine) - Closed Specialty Diagnoses / Procedures Referred By Contac t Referred To Contact Radiology Diagnoses Paresthesias/numbness Procedures MRI Brain W WO Contrast Elle Acuna MD Phone: tel: fax: [facility] [address] [place] [phone] Referral ID Status Reason Start Date Expiration Date Visits Re quested Visits Authorized [id number] Closed 03/30/2019 10/08/2020 1 1 Reason for Visit * Reason Comments Establish Care Encounter Details Date Type Department Care Team (Late st Contact Info) Description 03/30/2019 8:15 AM CDT Office Visit [facility] [address] [place] [phone] Elle Acuna MD [address] [place] [place] [address] Paresthesias/numbness (Primary Dx); Essential hypertension; Morbid obesity with BMI of [...] Sign Reading Time Taken Comments Blood Pressure 142/80 03/30/2019 8:37 AM CDT Pulse 67 03/30/2019 8:37 AM CDT Temperature - - Respiratory Rate - - Oxygen Saturation 99% 03/30/2019 8:37 AM CDT Inhaled Oxygen Concentration - - Weight 139.7 kg (308 lb) 03/30/2019 8:37 AM CDT Height 174 cm (5' 8.5 ) 03/30/2019 8:37 AM CDT Body Mass Index 46.15 03/30/2019 8:37 AM CDT documented in this encounter Ordered Prescriptions Prescription Sig Dispense Quantity Refills Last Filled Start Date End Date SUMAtriptan (IMITREX) 50 mg tabletIndications: Migraine Take 1 tablet (50 mg total) by mouth once as needed for migraine May repeat after 2 hours. 9 tablet 5 03/30/2019 0 documented in this encounter Progress Notes * Elle Acuna MD - 03/30/2019 8:15 AM CDT Iveth Lopezemmanuel 1980 Chief Complaint Patient presents with ??? Establish Care Ms. Montoya is a 39 year-old female with no significant past medical history who presents to establish care for numbness and tingling. On Wednesday, patient was sitting at work when she developed a sharp pain/muscle spasm in her R occiput. This lasted only very briefly but was followed by numbness/tingling in her R jaw and posterior Rarm. She also was having difficulty forming words and was nauseated. She went to an urgent care where EKG was normal but she was then sent to ER. There she had a normal head CT and elevated BP. She was prescribed Diuril and discharged but was unable to fill the Rx. She continued to feel off the following two days with symptoms worse while in the car. Wednesday, she woke up feeling fine but later that morning began experiencing her symptoms again and presented to the [facility] ER. Another head CT was normal and they wanted to perform a brain MRI but she was not critical enough per her report to have it done at that time. Since that time, she has continued to intermittently experience these symptoms and at one point experienced tingling on the L jaw rather than right. She has not had any headaches or visual disturbances. She does have a history of R sided frontal migraines which she attributes to sinus issues. She doesnot have an auras usually. She takes over the counter migraine relief medication and sinus meds which resolve her headaches. Past Medical History: Diagnosis Date ??? Hypertension ??? Muscle spasms of neck Posterior neck and cranium ??? Numbness Family History Problem Relation Age of Onset ??? Hypertension Mother ??? Kidney disease Mother ??? Hypertension Brother ??? Heart disease Maternal Grandfather ??? Breast cancer Paternal Grandmother ??? Heart disease Paternal Grandfather Social History Socioeconomic History ??? Marital status: Unknown Spouse name: Not on file ??? Number of children: Not on file ??? Years of education: Not on file ??? Highest education level: Not on file Occupational History ??? Not on file Social Needs ??? Financial resource strain: Not on file ??? Food insecurity: Worry: Not on file Inability: Not on file ??? Transportation needs: Medical: Not on file Non-medical: Not on file Tobacco Use ??? Smoking status: Never Smoker ??? Smokeless tobacco: Never Used Substance and Sexual Activity ??? Alcohol use: Yes Comment: socially ??? Drug use: Never ??? Sexual activity: Yes Partners: Male Lifestyle ??? Physical activity: Days per week: Not on file Minutes per session: Not on file ??? Stress: Not on file Relationships ??? Social connections: Talks on phone: Not on file Gets together: Not on file Attends orthodoxy service: Not on file Active member of club or organization: Not on file Attends meetings of clubs or organizations: Not on file Relationship status: Not on file ??? Intimate partner violence: Fear of current or ex partner: Not on file Emotionally abused: Not on file Physically abused: Not on file Forced sexual activity: Not on file Other Topics Concern ??? Not on file Social History Narrative ??? Not on file Review of Systems Constitutional: Negative for fatigue [...] Skin: Negative for rash. Neurological: Positive for speech difficulty and numbness. Negative for light- headedness and headaches. Hematological: Negative for adenopathy. Psychiatric/Behavioral: Negative for dysphoric mood and suicidal ideas. Phyiscal Exam Body mass index is 46.15 kg/m??. Vitals BP 142/80 (BP Location: Left arm, Patient Position: Sitting) Pulse 67 Ht 174 cm (5' 8.5 ) Wt (!) 139.7 kg (308 lb) LMP 03/18/2019 SpO2 99% BMI 46.15 kg/m?? Physical Exam Vitals signs reviewed. Constitutional: Appearance: She is well-developed. She is obese. HENT: Head: Normocephalic and atraumatic. Right Ear: Tympanic membrane and ear canal normal. Left Ear: Tympanic membrane and ear canal normal. Eyes: Conjunctiva/sclera: Conjunctivae normal. Pupils: Pupils are equal, round, and reactive to light. Neck: Musculoskeletal: Normal range of motion and neck supple. Thyroid: No thyromegaly. Cardiovascular: Rate and Rhythm: Normal rate and regular rhythm. Pulmonary: Effort: Pulmonary effort is normal. Breath sounds: Normal breath sounds. Abdominal: Palpations: Abdomen is soft. Tenderness: There is no tenderness. Musculoskeletal: Normal range of motion. Lymphadenopathy: Cervical: No cervical adenopathy. Skin: General: Skin is warm and dry. Capillary Refill: Capillary refill takes less than 2 seconds. Findings: No rash. Neurological: General: No focal deficit present. Mental Status: She is alert and oriented to person, place, and time. Cranial Nerves: Cranial nerves are intact. No dysarthria or facial asymmetry. Sensory: Sensory deficit (R face decreased sensation to light touch in V1-V3) present. Motor: Motor function is intact. No weakness, tremor or pronator drift. Coordination: Coordination is intact. Gait: Gait is intact. Psychiatric: Mood and Affect: Mood normal. Behavior: Behavior normal. No notes on file Assessment and Plan Diagnoses and all orders for this visit: Paresthesias/numbness (Primary) Assessment & Plan: Most likely migraine aura Given abrupt onset of symptoms which are different from patient's typical migraine pattern, will obtain brain MRI Trial Sumatriptan Consider neurology referral if symptoms persistent Orders: - MRI Brain W WO Contrast; Future Essential hypertension Assessment & Plan: BP above goal Will trial lifestyle modification for 3 months (healthy diet, low Na, increase physical activity) If no improvement at 3 month follow up, will start lisinopril Morbid obesity with BMI of 45.0-49.9, adult ([facility]) Assessment & Plan: BMI Follow-up includes: nutrition counseling, exercise counseling and education provided. Other orders - SUMAtriptan (IMITREX) 50 mg tablet; Take 1 tablet (50 mg total) by mouth once as needed for migraine May repeat after 2 hours. documented in this encounter Miscellaneous Notes * Assessment & Plan Note - Elle Acuna MD - 03/30/2019 9:17 AM CDT Associated Problem(s): Essential hypertension BP above goal Will trial lifestyle modification for 3 months (healthy diet, low Na, increase physical activity) If no improvement at 3 month follow up, will start lisinopril * Assessment & Plan Note - Elle Acuna MD - 03/30/2019 9:16 AM CDT Associated Problem(s): Paresthesias/numbness (Resolved 09/01/2020) Most likely migraine aura Given abrupt onset of symptoms which are different from patient's typical migraine pattern, will obtain brain MRI Trial Sumatriptan Consider neurology referral if symptoms persistent * Assessment & Plan Note - Santos Romano MA - 03/30/2019 8:40 AM CDTAssociated Problem(s): Morbid obesity with BMI of 50.0-59.9, adult (HCC) BMI Follow-up includes: nutrition counseling, exercise counseling and education provided. documented in this encounter Plan of Treatment Not on file documented as of this encounter Results * MRI Brain W WO Contrast (04/19/2019 3:47 PM EMBOSSING CALENDER OPERATOR) Anatomical Region Laterality Modality Head and Neck N/A Magnetic Resonan ce 04/19/2019 4:54 PM EMBOSSING CALENDER OPERATOR Impressions 04/20/2019 8:35 AM EMBOSSING CALENDER OPERATOR Normal MRI of the brain. Dictated by: Johnathon Bell M.D. The radiology attending physician has personally reviewed this study, and had reviewed and/or edited this written report and agrees with it. Electronically signed by: Dalton Mobley M.D. Narrative 04/20/2019 8:35 AM EMBOSSING CALENDER OPERATOR EXAMINATION: Magnetic resonance imaging (MRI) of the brain and brainstem without and with contrast HISTORY: Right sided paresthesias TECHNIQUE: Multiplanar multi-weighted MRI of the brain and brainstem was performed without and with intravenous contrast using the general brain protocol. Contrast information: 20 220 03/21/2019 mL Dotarem COMPARISON: Head CT 03/21/2019 [...] using the general brain protocol. Contrast information: 20 220 03/21/2019 mL Dotarem COMPARISON: Head CT 03/21/2019 [...] documented in this encounter Visit Diagnoses Diagnosis Paresthesias/numbness- Primary Disturbance of skin sensation Essential hypertension Unspecified essential hypertension Morbid obesity with BMI of 45.0-49.9, adult (HCC) Paresthesias/numbness Disturbance of skin sensation documented in this encounter Discontinued Medications Medication Sig Discontinue Reason Start Date End Da te chlorothiazide (DIURIL) 250 mg tablet Take 1 tablet (250 mg total) by mouth every morning Therapy completed 03/21/2019 03/30/2019 LORazepam (ATIVAN) 0.5 mg tabletIndications:anxiet y Take 1 tablet (0.5 mg total) by mouth 3 (three) times a day as needed for anxiety for up to 5 days Therapy completed 03/21/2019 03/30/2019 documented as of this encounter Historical Medications * This list may reflect changes made after this encounter. vitamin b complex tablet Take 1 tablet by mouth daily added in this encounter Care Teams Manager Truck Relationship Specialty Start Date End Date Elle Acuna MD PCP - General Internal Medicine 03/30/19 documented as of this encounter
--- OUTSIDE RECORDS SUMMARY | 2024-05-26 02:43 | XMS_ITS | Encounter Summary ---
Author Organization [facility] Healthcare Address [address] [place] [address] Care Team Providers Care Dry Color Tester Name Role Phone No, Physician Primary Care Provider [phone] Encounter Details Date Type Department Care Team (Late st Contact Info) Description 03/24/2019 4:11 PM CDT - 03/24/2019 7:49 PM CDT Hospital Encounter [facility] Emergency Department [address] [place] [address] Unknown, Kristofer Cabrera MD [address] [place] [address] Discharge Disposition: Discharge to home or self care Social History Tobacco Use Types Packs/Day Years Used Date Smoking Tobacco: Never Assessed Comments Unknown Sex and Gender Information Value Date Recorded Sex Assigned at Not on file Legal Sex Female 4:09 PM CDT Gender Identity Female 02/15/2021 1:09 PM CDT Sexual Orientation Straight 02/15/2021 1: 09 PM CDT documented as of this encounter Last Filed Vital Signs Vital Sign Reading Time Taken Comments Blood Pressure 132/79 03/24/2019 4:19 PM CDT Pulse 67 03/24/2019 4:19 PM CDT Temperature 37.2 ??C (98.9 ??F) 03/24/2019 4:19 PM CD T Respiratory Rate - - Oxygen Saturation 98% 03/24/2019 4:19 PM CDT Inhaled Oxygen Concentration - - Weight 139 kg (306 lb 7.1 oz) 03/24/2019 4:19 PM CDT Height 172.7 cm (5' 8 ) 03/24/2019 4:19 PM CDT Body Mass Index 46.59 03/24/2019 4:19 PM CDT documented in this encounter Medications at Time of Discharge chlorothiazide (DIURIL) 250 mg tablet Take 1 tablet (250 mg total) by mouth every morning 30 tablet 03/21/2019 03/30/2019 LORazepam (ATIVAN) 0.5 mg tabletIndications :anxiety Take 1 tablet (0.5 mg total) by mouth 3 (three) times a day as needed for anxiety for up to 5 days 12 tablet 03/21/2019 03/30/2019 documented as of this encounter Discharge Disposition Disposition Code Departure Means Destination Discharge to home or self care documented in this encounter Plan of Treatment Not on file documented as of this encounter Procedures Procedure Name Priority Date/Time Associated Diagnosis Comments TNI WITH LIPID PANEL Routine 03/24/2019 5:23 PM CDT CBC WITH AUTO DIFFERENTIAL Routine 03/24/2019 5:23 PM CDT COMPREHENSIVE METABOLIC PANEL Routine 03/24/2019 5:23 PM CDT ECG 12-LEAD 03/24/2019 5:[address] CERVICAL SPINE WO CONTRAST 03/24/2019 4:[address] HEAD WO CONTRAST 03/24/2019 1 2:00 AM CDT documented in this encounter Results * CBC with auto differential (03/24/2019 5:23 PM CDT) WBC 9.5 3.8 - 9.9 X10 3/ul [facility] RBC 4.71 3.90 - 5.20 x10 6/ul [facility] Hemoglobin 14.2 11.9 - 15.5 g/dL [facility] Hct 40.6 35.6 - 45.5 % [facility] MCV 86.2 81.3 - 96.4 fl [facility] MCH 30.1 27.1 - 33.3 pg [facility] MCHC 35.0 32.3 - 35.7 g/dl [facility] RDW 12.4 11.1 - 14.9 % [facility] Plt Count 206 150 - 400 x10 3/ul [facility] MPV 10.7 9.1 - 12.3 fl [facility] Neut % 67.2 % [facility] Immature Gran % 0.1 % [place] [facility] Lymph % 24.5 % [facility] [place] % 7.1 % [facility] Eos % 0.6 % [facility] E [facility] AUTO BASO % 0.5 % [facility] NEUTROPHIL ABS # 6.4 1.7 - 6.5 x10 3/ul [facility] Immature Gran # 0.0 0.0 - 0.1 x10 3/ul [facility] Absolute Lymphs (auto) 2.3 0.8 - 3.3 x10 3/ul [facility] Absolute Monos (auto) 0.7 0.2 - 0.8 x10 3/ul [facility] Absolute Eos (auto) 0.1 0.0 - 0.5 x10 3/ul [facility] BASOPHIL ABS # 0.1 0.0 - 0.1 x10 3/ul [facility] Nucleat RBC Rel Count 0.0 #/100WBC [facility] NRBC abs 0.00 0.00 - 0.01 x10 3/ul [facility] Platelet Evaluation AGREE AGREE [facility] Comment: Slide review of platelets correlates with instrument count. RBC Morphology NORMAL NORMAL [facility] Absolute Neutrophils 6,400 200 - 8,000 /ul [facility] 03/24/2019 5:23 PM CDT 03/24/2019 5:26 PM CDT Narrative Resulting Agency Comment ER us Bren Penn MANAGER BUSINESS BANKING LAB BLOOD ORDERABLES [place] [address], [facility] [phone] * TNI with LIPID PANEL (03/24/2019 5:23 PM CDT) Troponin I <0.300 0.000 - 0.300 ng/mL [facility] Comment: Reference using RUBÉN Chemiluminescence ? Negative: Repeat in 4-6 hours as indicated. Triglycerides 96 0 - 149 mg/dL [facility] Comment: National Lipid Association/NCEP Guidelines: ?? Normal ?< 150 mg/dL ?? Borderline high ?? 150-199 mg/dL ?? High ?200-499 mg/dL ?? Very High ? >=500 mg/dL Cholesterol 162 0 - 199 mg/dL [facility] Comment: National Lipid Association/NCEP Guidelines: Desirable ? < 200 mg/dL Borderline high: ??200-239 mg/dL High Risk: ?>=240 mg/dL HDL Cholesterol 58 mg/dL [facility] Comment: Reference Ranges: ? Males: >=40 mg/dL ? Females: >=50 mg/dL LDL Cholesterol, Calc 85 0 - 129 mg/dL [facility] Comment: National Lipid Association/NCEP Guidelines: ??Optimal ? < 100 mg/dL ??Near Optimal ?100-129 mg/dL ??Borderline high 130-159 mg/dL ??High ?>=160 mg/dL Cholesterol/HDL Ratio 2.8 [facility] Comment: Optimal ??< 3.5:1 High ? > 5:1 03/24/2019 5:23 PM CDT 03/24/2019 5:26 PM CDT Narrative Resulting Agency Comment ER us Bren Penn MANAGER [employer] LAB BLOOD ORDERABLES [place] [address], [facility] [phone] * Comprehensive metabolic panel (03/24/2019 5:23 PM CDT) Sodium 139 135 - 145 mmol/L [facility] Potassium 3.8 3.3 - 5.1 mmol/L [facility] Chloride 102 96 - 108 mmol/L [facility] Carbon Dioxide 22 22 - 32 mmol/L [facility] Anion Gap 15 7 - 16 [facility] Glucose 95 70 - 100 mg/dL [facility] BUN 9 8 - 25 mg/dL [facility] Creatinine 0.6 0.5 - 1.1 mg/dL [facility] Comment: NOTE: Estimated GFR (Cockroft-Gault) will NOT be calculated unless patient Height and Weight were entered. Also, Kidney Disease Stage (GFR) and Estimated GFR (Cockroft-Gault) will NOT be calculated if Creatinine result is <0.2. Kidney Disease Stage >90 mL/MIN [facility] Comment: NOTE; ??The GFR is an estimated value using the creatinine, sex, age, and race of the patient. THE Estimated Kidney Disease GFR is validated for AGES 18-70 YEARS STAGE ?mL/Min ?DESCRIPTION ??1 ?90 mL/min or more ?Normal or elevated GFR ??2 ? 60-89 mL/min ?Mildly decreased GFR ??3 ? 30-59 mL/min ?Moderately decreased GFR ??4 ? 15-29 mL/min ?Severely decreased GFR ??5 ? <15 mL/min ? Kidney failure or on dialysis Est GFR (Cockcroft-G) 187 ml/MIN [facility] Comment: Estimated GFR(Cockroft-Gault)is used to calculate patient medication dosage Calcium 9.6 8.6 - 10.3 mg/dL [facility] Total Protein 7.8 6.4 - 8.3 g/dL [facility] Albumin 4.4 3.5 - 5.0 g/dL [facility] Globulin 3.4 2.3 - 3.5 gm/dL [facility] Albumin/Globulin Ratio 1.3 1.1 - 1.8 [facility] Total Bilirubin 0.3 0.0 - 1.2 mg/dL [facility] AST 19 0 - 32 U/L [facility] ALT 18 0 - 33 U/L [facility] Alkaline Phosphatase 61 35 - 104 U/L [facility] 03/24/2019 5:23 PM CDT 03/24/2019 5:26 PM CDT Narrative Resulting Agency Comment ER us Bren Penn MANAGER [employer]ING LAB BLOOD ORDERABLES Final Re sult Performing Organization Address City/[facility]/ZIP Co de Phone Number [address] [phone] * ECG 12 lead (03/24/2019 5:07 PM CDT) Ventricular Rate EKG/Min 71 BPM [facility] Atrial Rate 71 BPM [facility] ND-Interval (MSEC) 154 ms [facility] QRS-Interval (MSEC) 86 ms [facility] QT-Interval (MSEC) 384 ms [facility] QTc 417 ms [facility] P [place] 41 degrees [facility] R [place] 14 degrees [facility] T [place] 5 degrees [facility] Diagnosis Normal sinus rhythm Normal ECG No previous ECGs available [facility] 03/24/2019 5:07 PM CDT 03/26/2019 12:14 PM CDT Narrative Resulting Agency Comment ALBIN us Bren Villarrealper MANAGER BUSINESS BANKING ECG ORDERABLES Edited [facility] * CT Cervical Spine WO Contrast (03/24/2019 4:28 PM CDT) Anatomical Region Laterality Modality Spine N/A Computed Tomogra phy 03/24/2019 5:23 PM CDT Narrative 03/24/2019 5:26 PM CDT Patient Name: SALAZARLEONELARUN D ?Ordering Dr: Bren Penn CNP ?? D.O.B: 1980 ? Exam Date: 03/24/19 ?? 1628 ?? Age: 39 ?Sex: Female ? MR#: [id number] ?? Loc: ? RADIOLOGY REPORT ?? Order #[id number] ?? CT Scan ? CT C-Spine WO IV Contrast ? Signed ? EXAM DESCRIPTION: ??CT C-Spine WO IV Contrast ? REASON FOR STUDY: ??Right-sided facial and arm numbness with slight headache. ? Symptoms for 4 days. ? TECHNIQUE: ??Axial images through the cervical spine with sagittal and coronal ?? reformatted images. Automated exposure control was used as a dose optimization ?? technique for this examination. ? COMPARISON: ??None ? FINDINGS: ? ALIGNMENT: There is some straightening of the normal cervical lordosis. ??This ?? could be positional or related to spasm. ? VERTEBRAE: Vertebral body heights are well maintained. ??No acute fracture or ?? subluxation. ??The facets are normally aligned. ? DISCS: Disc space heights are well maintained. ? HARDWARE: None in the spine. ? INDIVIDUAL LEVELS: ? C1-C2: No significant osseous spinal stenosis. ? C2-C3: No significant osseous spinal stenosis or neural foraminal stenosis. ? C3-C4: No significant osseous spinal stenosis or neural foraminal stenosis. ? C4-C5: No significant osseous spinal stenosis or neural foraminal stenosis. ? C5-C6: No significant osseous spinal stenosis or neural foraminal stenosis. ? C6-C7: No significant osseous spinal stenosis or neural foraminal stenosis. ? C7-T1: No significant osseous spinal stenosis or neural foraminal stenosis. ? UPPER THORACIC: Incompletely imaged. No significant osseous spinal stenosis or ?? osseous neural foraminal stenosis. ? SKULL BASE: There is mild mucosal thickening in the floor of the sphenoid ?? sinus. ? LUNG APICES: No significant abnormality. ? NECK SOFT TISSUES: Scattered nonenlarged cervical nodes. ??There is a ?? subcentimeter hypodensity within the right thyroid lobe, which may reflect a ?? small colloid cyst. ? OTHER: No other significant findings. ? IMPRESSION: ? 1. ??No acute osseous abnormality in the cervical spine. ? 2. ??Subcentimeter hypodensity in the right thyroid lobe. ??Nonemergent thyroid ?? ultrasound can be utilized for further characterization. ? THIS IS AN ELECTRONICALLY VERIFIED FINAL REPORT ?? 03/24/2019 5:26 PM - Electronically signed by Liv Fleming M.D. ?? Liv Fleming M.D. ? TB: TB ?? D: ??03/24/2019 5:26 PM ?? T: ??03/24/2019 5:26 PM ? Report ID: [id number] ?? Reading Location: ??[id number] ? REPORT ELECTRONICALLY SIGNED IN OTHER VENDOR SYSTEM ?? Resulting Agency Comment E Procedure Note Liv Fleming MD - 03/24/2019 Patient Name: ARUN MONTOYA Dr: Bren Penn CNP D.O.B: 1980 Exam Date: 03/24/191627 Age: 39 Sex: Female MR#: [id number] Loc: RADIOLOGY REPORT Order #[id number] CT Scan CT C-Spine WO IV Contrast Signed EXAM DESCRIPTION: CT C-Spine WO IV Contrast REASON FOR STUDY: Right-sided facial and arm numbness with slightheadache. Symptoms for 4 days. TECHNIQUE: Axial images through the cervical spine with sagittal andcoronal reformatted images. Automated exposure control was used as a doseoptimization technique for this examination. COMPARISON: None FINDINGS: ALIGNMENT: There is some straightening of the normal cervical lordosis.This could be positional or related to spasm. VERTEBRAE: Vertebral body heights are well maintained. No acute fractureor subluxation. The facets are normally aligned. DISCS: Disc space heights are well maintained. HARDWARE: None in the spine. INDIVIDUAL LEVELS: C1-C2: No significant osseous spinal stenosis. C2-C3: No significant osseous spinal stenosis or neural foraminalstenosis. C3-C4: No significant osseous spinal stenosis or neural foraminalstenosis. C4-C5: No significant osseous spinal stenosis or neural foraminalstenosis. C5-C6: No significant osseous spinal stenosis or neural foraminalstenosis. C6-C7: No significant osseous spinal stenosis or neural foraminalstenosis. C7-T1: No significant osseous spinal stenosis or neural foraminalstenosis. UPPER THORACIC: Incompletely imaged. No significant osseous spinalstenosis or osseous neural foraminal stenosis. SKULL BASE: There is mild mucosal thickening in the floor of the sphenoid sinus. LUNG APICES: No significant abnormality. NECK SOFT TISSUES: Scattered nonenlarged cervical nodes. There is a subcentimeter hypodensity within the right thyroid lobe, which mayreflect a small colloid cyst. OTHER: No other significant findings. IMPRESSION: 1. No acute osseous abnormality in the cervical spine. 2. Subcentimeter hypodensity in the right thyroid lobe. Nonemergentthyroid ultrasound can be utilized for further characterization. THIS IS AN ELECTRONICALLY VERIFIED FINAL REPORT 03/24/2019 5:26 PM - Electronically signed by Liv Fleming M.D. TB: TB Report ID: [id number] Reading Location: [place] [address] REPORT ELECTRONICALLY SIGNED IN OTHER VENDOR SYSTEM us Bren Penn MANAGER BUSINESS BANKING IMG CT PROCEDURES Final Resul t * CT Head WO Contrast (03/24/2019 12:00 AM CDT) Anatomical Region Laterality Modality Head and Neck N/A Computed Tomogra phy 03/24/2019 6:00 PM CDT Narrative 03/24/2019 6:02 PM CDT Patient Name: SALAZARARUN ?Ordering Dr: Bren Penn A DIGITAL COMMUNICATIONS MANAGER ?? D.O.B: 1980 ? Exam Date: 03/24/19 ?? 0000 ?? Age: 39 ?Sex: Female ? MR#: [id number] ?? Loc: ? RADIOLOGY REPORT ?? Order #[id number] ?? CT Scan ? CT Head WO IV Contrast ? Signed ? EXAM DESCRIPTION: ??CT Head WO IV Contrast ? REASON FOR STUDY: ??Right-sided headache as well as right arm and right facial ?? numbness, onset 4 days ago ? TECHNIQUE: ??Axial computed tomographic images acquired through the brain ?? without intravenous contrast. ??Images stored on PACS. ?? Automated exposure ?? control was used as a dose optimization technique for this examination. ? COMPARISON: ??None available ? FINDINGS: ? BRAIN: No hemorrhage, edema or mass effect. No recent infarct. Normal white ?? matter. ? EXTRA-AXIAL SPACES: No fluid collections. No masses. ? CALVARIUM: No fracture. ? SINUSES/MASTOIDS: No fluid or mucosal thickening. ? ORBITS: No significant abnormality. ? OTHER: No other significant abnormality. ? IMPRESSION: ??No CT evidence of an acute intracranial process. ? THIS IS AN ELECTRONICALLY VERIFIED FINAL REPORT ?? 03/24/2019 6:02 PM - Electronically signed by Florentino Pierson M.D. ?? Florentino Pierson M.D. ? CN: CN ?? D: ??03/24/2019 6:02 PM ?? T: ??03/24/2019 6:02 PM ? Report ID: [id number] ?? Reading Location: ??[id number] ? REPORT ELECTRONICALLY SIGNED IN OTHER VENDOR SYSTEM ?? Resulting Agency Comment E Procedure Note Florentino Pierson MD - 03/24/2019 Patient Name: ARUN MONTOYA Dr: Bren Penn CNP DNedraO.B: 1980 Exam Date: 03/24/19 0000 Age: 39 Sex: Female MR#: [id number] Loc: RADIOLOGY REPORT Order #[id number] CT Scan CT Head WO IV Contrast Signed EXAM DESCRIPTION: CT Head WO IV Contrast REASON FOR STUDY: Right-sided headache as well as right arm and rightfacial numbness, onset 4 days ago TECHNIQUE: Axial computed tomographic images acquired through the brain without intravenous contrast. Images stored on PACS. Automatedexposure control was used as a dose optimization technique for this examination. COMPARISON: None available FINDINGS: BRAIN: No hemorrhage, edema or mass effect. No recent infarct. Normalwhite matter. EXTRA-AXIAL SPACES: No fluid collections. No masses. CALVARIUM: No fracture. SINUSES/MASTOIDS: No fluid or mucosal thickening. ORBITS: No significant abnormality. OTHER: No other significant abnormality. IMPRESSION: No CT evidence of an acute intracranial process. THIS IS AN ELECTRONICALLY VERIFIED FINAL REPORT 03/24/2019 6:02 PM - Electronically signed by Florentino Pierson M.D. CN: ANJALI Report ID: [id number] Reading Location: [place] [address] REPORT ELECTRONICALLY SIGNED IN OTHER VENDOR SYSTEM us Bren Penn MANAGER BUSINESS B[employer] IMG CT PROCEDURES Final Resul t documented in this encounter Visit Diagnoses Not on filedocumented in this encounter Care Teams Dry Color Tester Relationship Specialty Start Date End Date No, Physician PCP - General 03/21/19 03/29/19 documented as of this encounter
--- OUTSIDE RECORDS SUMMARY | 2024-05-26 02:43 | XMS_ITS | Encounter Summary ---
Author Organization [facility] Healthcare Address [address] [place] [address] Care Team Providers Care Parking Lot Manager Name Role Phone No, Physician Primary Care Provider [phone] Reason for Visit * Reason Comments Tingling Encounter Details Date Type Department Care Team (Late st Contact Info) Description 03/21/2019 4:12 PM CDT - 03/21/2019 6:29 PM CDT Emergency [facility] Emergency Department [address] [place] [address] Coleman Chong, DO [address] [facility] [address] [place], [place] [id number] Essential hypertension (Primary Dx); Atypical migraine Discharge Disposition: Discharge to home or self [...] Sign Reading Time Taken Comments Blood Pressure 147/90 03/21/2019 6:24 PM CDT Pulse 82 03/21/2019 6:24 PM CDT Temperature 36.7 ??C (98.1 ??F) 03/21/2019 6:24 PM CD T Respiratory Rate 18 03/21/2019 6:24 PM CDT Oxygen Saturation 95% 03/21/2019 6:24 PM CDT Inhaled Oxygen Concentration - - Weight 117.9 kg (260 lb) 03/21/2019 4:17 PM CDT Height 172.7 cm (5' 8 ) 03/21/2019 4:17 PM CDT Body Mass Index 39.53 03/21/2019 4:17 PM CDT documented in this encounter Discharge Diagnoses Diagnosis Essential (primary) hypertension - ESSENTIAL (PRIMARY) HYPERTENSION Unspecified essential hypertension Other migraine, not intractable, without status migrainosus - OTHER MIGRAINE, NOT INTRACTABLE, WITHOUT STATUS MIGRAINOSUS documented in this encounter Discharge Instructions * Attachments The following attachments cannot be sent through Care Everywhere. * Migraine Headache (Discharge Care) (Belgian) * Hypertension, New (Begin Treatment) (Belgian) documented in this encounter Medications at Time [...] 03/21/2019 03/30/2019 documented as of this encounter Ordered Prescriptions Prescription Sig Dispense Quantity Refills Last Filled Start Date End Date LORazepam (ATIVAN) 0.5 mg tabletIndications: anxiety Take 1 tablet (0.5 mg total) by mouth 3 (three) times a day as needed for anxiety for up to 5 days 12 tablet 03/21/2019 9 chlorothiazide (DIURIL) 250 mg tablet Take 1 tablet (250 mg total) by mouth every morning 30 tablet 03/21/2019 9 documented in this encounter Discharge Disposition Disposition Code Departure Means Destination Discharge to home or self care documented in this encounter ED Notes * Coleman Chong DO - 03/21/2019 5:38 PM CDT HPI Chief Complaint Patient presents with ??? 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 Patientdescribes having an area to her right parietal occiput area of the her scalp to be numb as well as tingling. Minimal headache no visual disturbances no speech impediment as well as no defects in swallowing speaking or ventilation. Denies chest pain shortness of breath coughing productive cough or abdominal pain. No physical weakness chest wall pain abdominal pain or defects in motion of the upperextremities. Patient denies being on medications which could cause palpitations. She denies palpitations abdominal distress dyspepsia or evidence of nausea vomiting diarrhea. Patient states that she is on the 3rd day of her menstrual cycle and has had cramping during the day. This is normal for hernormal menses. Denies hematuria melena or evidence of diarrhea. No travel outside the country and denies fever chills. Patient History There are no active problems to display for this patient. History reviewed. No pertinent past medical history. History reviewed. No pertinent surgical history. History reviewed. No pertinent family history. Social History Tobacco Use ??? Smoking status: Never Smoker Substance Use Topics ??? Alcohol use: Not on file ??? Drug use: Not on file Social History Patient does not qualify to have social determinant information on file (likely too young). Social History Narrative ??? Not on file Review of Systems Review of Systems Constitutional: Negative for activity change, chills, diaphoresis, fatigue and fever. HENT: Negative for congestion, dental problem, ear pain, mouth sores, postnasal drip, rhinorrhea, sinus pressure, sinus pain, sneezing, sore throat and trouble swallowing. Eyes: Negative for pain, discharge and visual disturbance. Respiratory: Negative for cough, chest tightness and shortness of breath. Cardiovascular: Negative for chest pain and palpitations. Gastrointestinal: Negative for abdominal pain and vomiting. Genitourinary: Negative for dysuria and hematuria. Musculoskeletal: Negative for arthralgias and back pain. Skin: Negative for color change and rash. Neurological: Negative for seizures and syncope. All other systems reviewed and are negative. Physical Exam ED Triage Vitals [03/21/19 1617] Temp Pulse Resp BP SpO2 36.8 ??C (98.2 ??F) 94 16 (!) 196/103 98 % Temp src Heart Rate Source Patient Position BP Location FiO2 (%) Temporal -- -- -- -- Physical Exam Vitals signs and nursing note reviewed. Constitutional: General: She is not in acute distress. Appearance: She is well-developed. HENT: Head: Normocephalic and atraumatic. Eyes: Conjunctiva/sclera: Conjunctivae normal. Neck: Musculoskeletal: Neck supple. Cardiovascular: Rate and Rhythm: Normal rate and regular rhythm. Heart sounds: Normal heart sounds. No murmur. Pulmonary: Effort: Pulmonary effort is normal. No respiratory distress. Breath sounds: Normal breath sounds. Abdominal: General: Bowel sounds are normal. There is no distension. Palpations: Abdomen is soft. Tenderness: There is no tenderness. There is no guarding. Skin: General: Skin is warm and dry. Neurological: Mental Status: She is alert and oriented to person, place, and time. Psychiatric: Mood and Affect: Mood normal. Behavior: Behavior normal. MDM MDM Number of Diagnoses or Management Options Atypical migraine: Essential hypertension: Diagnosis management comments: Patient counseled about use of different food products as well as taking medications at blunt other patients and/or family. Will initiate treatment for mild hypertension check labs as well as EKG rule out other areas of to suggest pneumonia [place] abdominal pain secondaryto UTI and or evidence of urinary tract infection. Plan to treat as well as discharge with follow up with PMD. Amount and/or Complexity of Data Reviewed Clinical lab tests: reviewed Tests in the radiology section of CPT??: reviewed Risk of Complications, Morbidity, and/or Mortality General comments: Patient stable blood pressure stable will discharge patient with follow up as an outpatient. Patient Progress Patient progress: stable No diagnosis found. Coleman Chong DO 03/21/19 1740 Coleman Chong DO 03/29/19 1557 Coleman Chong DO 03/29/19 1558 Coleman Chong DO 03/29/19 1559 * Vesna Law RN - 03/21/2019 4:15 PM CDT States that today she started having tingling to the back of her head earlier today. States that itis on her jaw bilaterally and was in her arms a little bit as well. Only complaint is that her jaw is still a little tingling. documented in this encounter Plan of Treatment Not on file documented as of this encounter Procedures Procedure Name Priority Date/Time Associated Diagnosis Comments EGFR STAT 03/21/2019 6:17 PM CDT DIFFERENTIAL AUTO STAT 03/21/2019 6:1 7 PM CDT URINALYSIS AND REFLEX TO MICROSCOPIC AND CULTURE STAT 03/21/2019 6:17 PM CDT CBC WITH AUTO DIFFERENTIAL STAT 03/21/2019 6:17 PM CDT TROPONIN T STAT 03/21/2019 6:17 PM CDT LIPASE STAT 03/21/2019 6:17 PM CDT COMPREHENSIVE METABOLIC PANEL STAT 03/21/2019 6:17 PM CDT POCT HCG, URINE Routine 03/21/2019 5:[address] HEAD WO CONTRAST ED 03/21/2019 5 :18 PM CDT POCT GLUCOSE DEVICE Routine 03/21/2019 5 :02 PM CDT documented in this encounter Results * eGFR (03/21/2019 6:17 PM CDT) eGFR >60 mL/min/1.7 3 m2 [facility] Comment: Interpretive Data Reference Interval Normal ?>/= 90 mL/min/1.73m2 Mildly decreased* ? 60 - 89 mL/min/1.73m2 Mildly to moderately decreased ?45 - 59 mL/min/1.73m2 Moderately to severely decreased ??30 - 44 mL/min/1.73m2 Severely decreased ?15 - 29 mL/min/1.73m2 Kidney Failure ?< 15 ??mL/min/1.73m2 *Relative to young adult level If -[place] multiply value by 1.16. Estimated glomerular filtration rate is determined by the CKD-EPI equation recommended by the National Kidney Foundation (KDIGO 2012 Clinical Practice Guideline for the Evaluation and Management of Chronic Kidney Disease. Kidney Intnl Suppl Jun 2012;3:1). The CKD-EPI equation should not be used for patients with unstable renal function and has not been validated in children and those over 70. Current interpretive data was last reviewed 2015. Blood specimen (specimen) 03/21/2019 6:17 PM CDT 03/21/2019 6:34 PM CDT us Coleman Chong DO LAB BLOOD ORDERABLES Final Result [facility] [address] [facility]. [place] [id number] * (ABNORMAL) Differential, auto (03/21/2019 6:17 PM CDT) Neutrophil abs 10.2(H) 1.7 - 6.5 K/cumm [facility] Imm gran abs 0.0 0.0 - 0.1 K/cumm [facility] Lymphocyte abs 1.9 0.8 - 3.3 K/cumm [facility] Monocyte abs 0.7 0.2 - 0.8 K/cumm [facility] Eosinophil abs 0.0 0.0 - 0.5 K/cumm [facility] Basophil abs 0.0 0.0 - 0.1 K/cumm [facility] Neutrophil pct 79.3 % [facility] Comment: Interpretive Data Percent cell count reference ranges are not reported, since discordance with absolute values may lead to misinterpretation of CBC data. Current Interpretive Data was last revised on 2017. Imm gran pct 0.3 % [facility] Comment: Interpretive Data Percent cell count reference ranges are not reported, since discordance with absolute values may lead to misinterpretation of CBC data. Current Interpretive Data was last revised on 2017. Lymphocyte pct 14.5 % [facility] Comment: Interpretive Data Percent cell count reference ranges are not reported, since discordance with absolute values may lead to misinterpretation of CBC data. Current Interpretive Data was last revised on 2017. Monocyte pct 5.1 % [facility] Comment: Interpretive Data Percent cell count reference ranges are not reported, since discordance with absolute values may lead to misinterpretation of CBC data. Current Interpretive Data was last revised on 2017. Eosinophil pct 0.4 % [facility] Comment: Interpretive Data Percent cell count reference ranges are not reported, since discordance with absolute values may lead to misinterpretation of CBC data. Current Interpretive Data was last revised on 2017. Basophil pct 0.4 % [facility] Comment: Interpretive Data Percent cell count reference ranges are not reported, since discordance with absolute values may lead to misinterpretation of CBC data. Current Interpretive Data was last revised on 2017. Blood specimen (specimen) 03/21/2019 6:17 PM CDT 03/21/2019 6:34 PM CDT us Coleman Chong DO LAB BLOOD ORDERABLES Final Result [facility] [address] [facility] [place] [phone] * (ABNORMAL) Urinalysis reflex to microscopic and culture Urine, clean voided (03/21/2019 6:17 PM CDT) Color, ur Yellow Yellow [facility] Clarity, ur Clear Clear [facility] Specific gravity, ur <=1.005(A) 1.010 - 1.025 [facility] pH, urine 6.0 [facility] Protein, ur ql Negative Negative [facility] Glucose, ur ql Negative Negative [facility] Ketones, ur Negative Negative [facility] Bilirubin, ur Negative Negative [facility] Blood, ur Negative Negative [facility] Urobilinogen, ur 0.2 <2.0 mg/dL [facility] Nitrite, ur Negative Negative [facility] Leukocyte esterase, ur Negative Negative [facility] Urine, clean voided 03/21/2019 6:17 PM CDT 03/21/2019 6:34 PM CDT Narrative [facility] - 03/21/2019 7:02 PM CDT ?? Urine pH is affected by diet, medications, systemic acid-base disturbances, and renal tubular function. ??pH may affect urinary stone formation. ??For example, urine pH below 6.0 may help reduce the tendency for calcium phosphate stones and pH greater than 6.0 may reduce the tendency for uric acid stone formation. Source: Rojas [place]. Last revised 06-17-2017 Coleman Chong DO LAB MICROBIOLOGY - GENERAL ORDERABLES Final Result Performing Organization Address City/State/[facility] Phone Number [facility] [id number] [facility] [place] [address] * Troponin T (03/21/2019 6:17 PM CDT) Troponin T <0.01 0.00 - 0.01 ng/mL [facility] Comment: Interpretive Data Reference ranges for children <18 years of age have not been established. - > or = 18 years: Serial determinations are recommended for the diagnosis of myocardial infarction. ??Temporal rise and fall are consistent with myocardial infarction when at least one value is above the 99th percentile upper reference limit for troponin assay. ??Journal of the [place] [employer] 2012;60:1581-98. Current Interpretive Data Last Revised Date: 2018. Blood specimen (specimen) 03/21/2019 6:17 PM CDT 03/21/2019 6:34 PM CDT Coleman Chong DO LAB BLOOD ORDERABLES Final Result [facility] [address] [place] [id number] * Lipase (03/21/2019 6:17 PM CDT) Lipase 30 10 - 99 Units/L [facility] Blood specimen (specimen) 03/21/2019 6:17 PM CDT 03/21/2019 6:34 PM CDT Coleman Chong DO LAB BLOOD ORDERABLES Final Result Performing Organization Address City/[facility]/ZIP Co de Phone Number [facility] [id number] [place] [id number] * Comprehensive metabolic panel (03/21/2019 6:17 PM CDT) Sodium 137 135 - 145 mmol/L [facility] Potassium, pl 3.8 3.3 - 4.9 mmol/L [facility] Chloride 100 97 - 110 mmol/L [facility] CO2 22 22 - 32 mmol/L [facility] Anion gap 15 2 - 15 mmol/L [facility] BUN 11 8 - 25 mg/dL [facility] Creatinine 0.70 0.60 - 1.10 mg/dL [facility] Glucose 105 70 - 199 mg/dL [facility] Comment: Interpretive Data Fasting glucose >/= 126 mg/dl is diagnostic for diabetes. ?? Fasting is defined as no caloric intake for at least 8 hours. Fasting glucose between 100 mg/dl to 125 mg/dl is diagnostic of prediabetes. In a patient with classic symptoms of hyperglycemia or hyperglycemic crisis, a random glucose >/= 200 mg/dl is diagnostic for diabetes. In the absence of unequivocal hyperglycemia, results should be confirmed by repeat testing. The classification and Diagnosis of Diabetes Diabetes Care 2017;40 (Suppl. 1):S11. Current interpretive data was last revised 2017. Calcium 9.4 8.5 - 10.3 mg/dL [facility] Bilirubin, total 0.4 0.1 - 1.2 mg/dL [facility] Protein, pl 7.7 6.5 - 8.5 g/dL [facility] Albumin 4.5 3.5 - 5.0 g/dL [facility] Alk phos 67 40 - 130 Units/L [facility] ALT 22 7 - 45 Units/L [facility] AST 24 10 - 45 Units/L [facility] Blood specimen (specimen) 03/21/2019 6:17 PM CDT 03/21/2019 6:34 PM CDT Coleman Chong DO LAB BLOOD ORDERABLES Final Result [facility] [address] [facility] [place] [phone] * (ABNORMAL) CBC with auto differential (03/21/2019 6:17 PM CDT) WBC 12.8(H) 3.8 - 9.9 K/cumm [facility] Hgb 14.7 11.9 - 15.5 g/dL [facility] Hct 42.9 35.6 - 45.5 % [facility] Plt 217 150 - 400 K/cumm [facility] MPV 10.5 9.1 - 12.3 fL [facility] RBC 4.85 3.90 - 5.20 M/cumm [facility] MCV 88.5 81.3 - 96.4 fL [facility] MCH 30.3 27.1 - 33.3 pg [facility] MCHC 34.3 32.3 - 35.7 g/dL [facility] RDW CV 12.7 11.1 - 14.9 % [facility] RDW SD 40.9 35.7 - 48.1 fL [facility] NRBC abs 0.00 0.00 - 0.01 K/cumm [facility] Blood specimen (specimen) 03/21/2019 6:17 PM CDT 03/21/2019 6:34 PM CDT Coleman Chong DO LAB BLOOD ORDERABLES Final Result [facility] [address] [facility] [place] [address] * POCT hCG, urine (03/21/2019 5:35 PM CDT) HCG, ur, POC Negative Lot Number [id number] QC Backgroud Clear Acceptable QC Control Line Acceptable Urine 03/21/2019 5:35 PM CDT us Coleman Chong DO POINT OF CARE TEST ORDERABL ES Final Result * CT Head WO Contrast (03/21/2019 5:18 PM CDT) Anatomical Region Laterality Modality Head and Neck N/A Computed Tomogra phy 03/21/2019 5:28 PM CDT Impressions 03/22/2019 1:12 PM CDT No acute intracranial abnormality. Dictated by: Johnathon Bell M.D. The radiology attending physician has personally reviewed this study, and had reviewed and/or edited this written report and agrees with it. Electronically signed by: Lidia Ramon M.D. Narrative 03/22/2019 1:12 PM CDT EXAMINATION: Noncontrast head CT HISTORY: Paresthesias to the back of the head and jaw bilaterally. TECHNIQUE: Noncontrast CT of the brain was performed with images acquired from skull base to vertex. COMPARISON: None available. FINDINGS: Topogram demonstrates no lytic lesions or fractures. There is no acute intracranial hemorrhage. Ventricles are of normal size and morphology. No mass effect or midline shift is present. The chang-white matter differentiation is normal. The visualized portions of the orbits are normal. The visualized portions of the mastoids are normal. The visualized portions of the paranasal sinuses are normal. No fractures are identified. Procedure Note Lidia Ramon MD - 03/22/2019 EXAMINATION: Noncontrast head CT HISTORY: Paresthesias to the back of the head and jaw bilaterally. TECHNIQUE: Noncontrast CT of the brain was performed with images acquired from skull base to vertex. COMPARISON: None available. FINDINGS: Topogram demonstrates no lytic lesions or fractures. There is no acute intracranial hemorrhage. Ventricles are of normal size and morphology. No mass effect or midline shift is present. The chang-white matter differentiation is normal. The visualized portions of the orbits are normal. The visualized portions of the mastoids are normal. The visualized portions of the paranasal sinuses are normal. No fractures are identified. IMPRESSION: No acute intracranial abnormality. Dictated by: Johnathon Bell M.D. The radiology attending physician has personally reviewed this study, and had reviewed and/or edited this written report and agrees with it. Electronically signed by: Lidia Ramon M.D. Coleman Chong DO IMG CT PROCEDURES Final Res ult * POCT glucose (03/21/2019 5:02 PM CDT) [facility] Glucose, POC 91 70 - 199 mg/dL [facility] Comment: Interpretive Data Glucose is assumed to be non-fasting. Fasting Glucose reference ranges are: 0 - 150 years: ??70 mg/dL - 99 mg/dL Current interpretive data was last revised on 2014. POC Performer [id number] [facility] POC Device Number [id number] [facility] Blood specimen (specimen) 03/21/2019 5:02 PM CDT 03/21/2019 5:02 PM CDT Coleman Chong DO LAB POCT ORDERABLES - DEVIC E Final Result [facility] [address] [place] [id number] documented in this encounter Visit Diagnoses Diagnosis Essential hypertension- Primary Unspecified essential hypertension Essential hypertension Unspecified essential hypertension Atypical migraine Other forms of migraine, without mention of intractable migraine without mention of status migrainosus Atypical migraine Other forms of migraine, without mention of intractable migraine without mention of status migrainosus documented in this encounter Orders Lab Orders Without Results Count Last Ordered D ate First Ordered Date POCT GLUCOSE DEVICE 1 03/21/2019 documented in this encounter Care Teams Parking Lot Manager Relationship Specialty Start Date End Date No, Physician PCP - General 03/21/19 03/29/19 documented as of this encounter
--- OUTSIDE RECORDS SUMMARY | 2024-05-26 02:43 | XMS_ITS | Encounter Summary ---
Author Organization [facility] Address [address] [place] [id number] Care Team Providers Care Spindle Frame Carver Name Role Phone Elle Acuna MD Primary Care Provider Reason for Visit * Reason Comments COVID Positive 11/28/2021 Patient c/o walker py voice following positive COVID test on 11/28/2021. Seen by Rossana.Patient was swabbed for Strep Throat but it come back negative. Patient needs voice to be better before she can return to work. Encounter Details Date Type Department Care Team (Late st Contact Info) Description 12/05/2021 6:00 PM CDT Office Visit [facility] [address] [address] Maranda Fountain NP [address] [place] [address] [address] [place] [address] Sore throat (Primary Dx); COVID-19 Social History Tobacco Use Types Packs/Day Years [...] Sign Reading Time Taken Comments Blood Pressure 129/87 12/05/2021 6:19 PM CDT Pulse 118 12/05/2021 6:04 PM CDT Temperature 37 ??C (98.6 ??F) 12/05/2021 6:04 PM CDT Respiratory Rate 28 12/05/2021 6:04 PM CDT Oxygen Saturation 99% 12/05/2021 6:04 PM CDT Inhaled Oxygen Concentration - - Weight 151.5 kg (334 lb) 12/05/2021 6:04 PM CDT Height 175.3 cm (5' 9 ) 12/05/2021 6:04 PM CDT Body Mass Index 49.32 12/05/2021 6:04 PM CDT documented in this encounter Patient Instructions * Attachments The following attachments cannot be sent through Care Everywhere. * Pharyngitis (Ticket Collector Or Usher) (Cuban) documented in this encounter Progress Notes * Maranda Fountain NP - 12/05/2021 6:00 PM CDT Images from the original note were not included. Subjective/Objective Patient ID: Iveth Montoya is a 41 y.o. female. Chief Complaint COVID Positive 11/28/2021 (Patient c/o raspy voice following positive COVID test on 11/28/2021. Seen by Rossana.Patient was swabbed for Strep Throat but it come back negative. Patient needs voice to be better before she can return to work. ) URI This is a new problem. Episode onset: approx. 8 days ago. The problem has been gradually improving.There has been no fever. Associated symptoms include a sore throat (scratchy throat). Pertinent negatives include no abdominal pain, chest pain, congestion, coughing, diarrhea, ear pain, headaches, nausea, neck pain, rash, rhinorrhea, shortness of breath, sinus pain, sneezing, vomiting or wheezing.She has tried nothing for the symptoms. Patient states she needs a note to return to work that states her sore throat is not contagious. 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 Review of Systems Constitutional: Negative for appetite change, chills, diaphoresis, fatigue and fever. HENT: Positive for sore throat (scratchy throat) and voice change (voice hoarseness). Negative for congestion, ear discharge, ear pain, postnasal drip, rhinorrhea, sinus pressure, sinus pain and sneezing. Respiratory: Negative for cough, chest tightness, shortness of breath and wheezing. Cardiovascular: Negative for chest pain. Gastrointestinal: Negative for abdominal pain, diarrhea, nausea and vomiting. Musculoskeletal: Negative for myalgias, neck pain and neck stiffness. Skin: Negative for rash. Neurological: Negative for dizziness and headaches. Hematological: Negative for adenopathy. Physical Exam Vitals and nursing note reviewed. Constitutional: General: She is awake. She is not in acute distress. Appearance: Normal appearance. HENT: Head: Normocephalic and atraumatic. Right Ear: Tympanic membrane and ear canal normal. Left Ear: Tympanic membrane and ear canal normal. Nose: No congestion or rhinorrhea. Right Sinus: No maxillary sinus tenderness or frontal sinus tenderness. Left Sinus: No maxillary sinus tenderness or frontal sinus tenderness. Mouth/Throat: Lips: [place]. Mouth: Mucous membranes are moist. Tongue: Tongue does not deviate from midline. Pharynx: Uvula midline. Posterior oropharyngeal erythema present. No pharyngeal swelling, oropharyngeal exudate or uvula swelling. Tonsils: No tonsillar exudate or tonsillar abscesses. Eyes: General: Lids are normal. Pupils: Pupils are equal, round, and reactive to light. Cardiovascular: Rate and Rhythm: Normal rate and regular rhythm. Pulses: Normal pulses. Heart sounds: Normal heart sounds. Pulmonary: Effort: Pulmonary effort is normal. No respiratory distress. Breath sounds: Normal breath sounds. No decreased breath sounds, wheezing, rhonchi or rales. Musculoskeletal: Cervical back: Full passive range of motion without pain, normal range of motion and neck supple. Lymphadenopathy: Cervical: No cervical adenopathy. Skin: General: Skin is warm and dry. Neurological: Mental Status: She is alert and oriented to person, place, and time. Gait: Gait normal. Psychiatric: Behavior: Behavior is cooperative. Vitals: 12/05/21 1804 12/05/21 1819 BP: 155/97 129/87 BP Location: Left arm Patient Position: Sitting Pulse: 118 Resp: 28 Temp: 37 ??C (98.6 ??F) TempSrc: Oral SpO2: 99% Weight: (!) 151.5 kg (334 lb) Height: 175.3 cm (5' 9 ) No exam data present Past Medical History: Diagnosis Date ??? Hypertension ??? Muscle spasms of neck Posterior neck and cranium ??? Numbness Current Outpatient Medications: ??? EluRyng 0.12-0.015 mg/24 hr vaginal ring, INSERT 1 RING VAGINALLY DIRECTED. REMOVE AFTER 3 WEEKS & WAIT 7 DAYS BEFORE INSERTING A NEW RING, Disp: 3 each, Rfl: 4 ??? fluticasone propionate (FLONASE) 50 mcg/actuation nasal spray, SPRAY 2 SPRAYS INTO EACH NOSTRILEVERY DAY (Patient not taking: Reported on 11/28/2021), Disp: 16 mL, Rfl: 1 ??? topiramate (TOPAMAX) 50 mg tablet, TAKE ONE TABLET BY MOUTH ONCE DAILY, Disp: 90 tablet, Rfl: 1 ??? vitamin b complex tablet, Take 1 tablet by mouth daily, Disp: , Rfl: Allergies Allergen Reactions ??? Meperidine Itching Itching Social History Tobacco Use ??? Smoking status: Never Smoker ??? Smokeless tobacco: Never Used Substance and Sexual Activity ??? Drug use: Never ??? Sexual activity: Yes Partners: Male Alcohol Use: Not on file Past Surgical History: Procedure Laterality Date ??? CHOLECYSTECTOMY 2004 Assessment/Plan Diagnoses and all orders for this visit: Sore throat (Primary) - Throat culture Throat; Future COVID-19 -drink plenty of fluids -warm saltwater gargles p.r.n. -hot tea with honey p.r.n. -steam inhalation -discussed with patient that we will send out throat culture if that is negative then I will write a letter for patient to return to work. -discussed with patient that sore throat is likely still from her COVID diagnosis last week. -ibuprofen per package directions as needed for discomfort/pain Patient Education: Sore Throat: Call 911 for any of the following: ?? You have trouble breathing or swallowing because your throat is swollen or sore. Seek care immediately if: ?? You are drooling because it hurts too much to swallow. ?? Your fever is higher than 102??F (39??C) or lasts longer than 3 days. ?? You are confused. ?? You taste blood in your throat. Contact your healthcare provider if: ?? Your throat pain gets worse. ?? You have a painful lump in your throat that does not go away after 5 days. ?? Your symptoms do not improve after 5 days. Treatment for pharyngitis: Viral pharyngitis will go away on its own without treatment. Your sore throat should start to feel better in 3 to 5 days for both viral and bacterial infections. You may need any of the following: ?? Antibiotics treat a bacterial infection only. ?? NSAIDs , such as ibuprofen, help decrease swelling, pain, and fever. NSAIDs can cause stomach bleeding or kidney problems in certain people. If you take blood thinner medicine, always ask your healthcare provider if NSAIDs are safe for you. Always read the medicine label and follow directions. ?? Acetaminophen decreases pain and fever. It is available without a doctor's order. Ask how much to take and how often to take it. Follow directions. Acetaminophen can cause liver damage if not taken correctly. Manage your symptoms: ?? Gargle salt water. Mix ?? teaspoon salt in an 8 ounce glass of warm water and gargle. This may help decrease swelling in your throat. ?? Drink liquids as directed. You may need to drink more liquids than usual. Liquids may help soothe your throat and prevent dehydration. Ask how much liquid to drink each day and which liquids are best for you. ?? Use a cool-steam humidifier to help moisten the air in your room and calm your cough. ?? Soothe your throat with cough drops, ice, soft foods, or popsicles. ?? Magic Mouthwash Equal parts liquid antacid (e.g.Maalox) and children's Benadryl with a couple drops of Anbesol gargle and spit every 3-4 hours as needed. CDC Information: While waiting for your COVID-19 test result or if your COVID-19 test is positive: ISOLATE: Stay home except to get medical care! Separate yourself from other people and pets in yourhome: ??? Do not go to work, school, or public areas, such as stores or social gatherings. ??? Do not use public transportation. ??? If available, stay in a separate bedroom and use a separate bathroom. ??? Ask others to care for your pets. (If possible) ??? Wear a facemask when around other people or pets. ??? Cover your mouth and nose with a tissue when you cough or sneeze. If a tissue is not available,cough or sneeze into your upper sleeve (not your hands). ??? Throw tissues away in trash-can that has a bag in it. Empty your trash daily. ??? Always wash your hands after you throw away the tissue or garbage. If you test Positive for COVID-19 Given what we currently know about COVID-19 and the Omicron variant, CDC is shortening the recommended time for isolation from 10 days for people with COVID-19 to 5 days, if asymptomatic, followed by5 days of wearing a mask when around others. The change is motivated by science demonstrating that the majority of SARS-CoV-2 transmission occurs early in the course of illness, generally in the 1-2 days prior to onset of symptoms and the 2-3 days after. Therefore, people who test positive should isolate for 5 days and, if asymptomatic at that time, they may leave isolation if they can continue to mask for 5 days to minimize the risk of infecting others. Quarantine for those exposed to COVID-19 Additionally, CDC is updating the recommended quarantine period for those exposed to COVID-19. For people who are unvaccinated or are more than six months out from their second mRNA dose (or more than 2 months after the J&J vaccine) and not yet boosted, CDC now recommends quarantine for 5 days followed by strict mask use for an additional 5 days. Alternatively, if a 5-day quarantine is not feasible, it is imperative that an exposed person wear a well-fitting mask at all times when around others for 10 days after exposure. Individuals who have received their booster shot do not need to quarantine following an exposure, but should wear a mask for 10 days after the exposure. For all those exposed, best practice would also include a test for SARS-CoV-2 at day 5 after exposure. If symptomsoccur, individuals should immediately quarantine until a negative test confirms symptoms are not attributable to COVID-19. Isolation relates to behavior after a confirmed infection. Isolation for 5 days followed by wearinga well-fitting mask will minimize the risk of spreading the virus to others. Quarantine refers to the time following exposure to the virus or close contact with someone known to have COVID-19. Both updates come as the Omicron variant continues to spread throughout the [place] and reflects the current science on when and for how long a person is maximally infectious. If You Were Exposed to Someone with COVID-19 (Quarantine) If you: Have been boosted OR Completed the primary series of Pfizer or Moderna vaccine within the last 6 months OR Completed the primary series of J&J vaccine within the last 2 months Wear a mask around others for 10 days. Test on day 5, if possible. If you develop symptoms get a test and stay home. If you: Completed the primary series of Pfizer or Moderna vaccine over 6 months ago and are not boosted OR Completed the primary series of J&J over 2 months ago and are not boosted OR Are unvaccinated Stay home for 5 days. After that continue to wear a mask around others for 5 additional days. If you can???t quarantine you must wear a mask for 10 days. Test on day 5 if possible. If you develop symptoms get a test and stay home If You Test Positive for COVID-19 (Isolate) Everyone, regardless of vaccination status. Stay home for 5 days. If you have no symptoms or your symptoms are resolving after 5 days, you can leave your house. Continue to wear a mask around others for 5 additional days. If you have a fever, continue to stay home until your fever resolves. Self-care: ??? Rest as much as possible. Slowly start to do more each day. ??? Take the medicines recommended by your doctor for fever, body aches, cough, or headaches. (Tylenol or Ibuprofen for aches/pains/fever as needed) (Antihistamines like Claritin or Benadryl as needed for drainage) (Delsym and cough drops/throat lozenges as needed for cough) ??? Drink more liquids as directed to help thin and loosen mucus so it is easier to cough up. Liquids such as water, fruit juice, and broth also help keep you hydrated. ??? Soothe a sore throat by gargling with warm salt water. Make salt water by dissolving ?? teaspoon salt in 1 cup warm water (8 ounces). Older children and adults can also use throat lozenges, ice chips, or sore throat spray. ??? Use a humidifier or vaporizer to increase air moisture in your home. This may make it easier tobreathe and help decrease coughing. ??? Use saline nasal drops as directed to relieve congestion. ??? Apply petroleum-based jelly around the outside of nostrils to decrease irritation from blowing your nose. ??? DO NOT smoke or vape. Nicotine and other chemicals in cigarettes and cigars can make your symptoms worse. Monitor your symptoms: ??? Seek medical attention right away if your symptoms get worse, such as if you are having difficulty breathing, shortness of breath, new confusion or inability to arouse, or bluish lips or face. ??? If you have a pulse ox monitor at home, monitor your oxygen saturations with this device. If you find your Oxygen Saturation is falling 92% or below please notify your PCP right away or seek medical attention. Or if you experience fever uncontrolled with antipyretics, shortness of breath, chestdiscomfort, uncontrolled n/v/d ??? If you have a medical emergency, call 911 and notify the EMS personnel that you have or are being evaluated for COVID-19. Put on a facemask before emergency medical services arrive -briefly discussed monoclonal antibody therapy, and antiviral therapy, call your PCP for more information and to see if you meet criteria for treatment. Disposition ??? Treatment plan including expectations, follow up, and return precautions discussed with patient/parent, verbalizes understanding. ??? Medication dosage, use, and potential adverse reactions discussed with patient/parent. ??? Advised to follow up with PCP if symptoms do not resolve as expected or sooner if condition worsens. ??? Signs/symptoms warranting ER evaluation reviewed. ??? Patient and/or guardian was given an opportunity to ask questions, questions answered. Maranda Fountain NP documented in this encounter Plan of Treatment Not on file documented as of this encounter Results * Throat culture Throat (12/05/2021 6:36 PM CDT) Report Final Report: No growth of pathogens. ALEJO HERRERA Comment:Testing performed by : [facility], [address] [place]., [address] Throat 12/05/2021 6:36 PM CDT 12/06/2021 3:09 AM CDT Vaishali ALEJO HERRERA - 12/07/2021 1:41 PM CDT Testing performed by [facility] ([phone]). Maranda Fountain NP LAB MICROBIOLOGY - GENERAL [facility] Final Result ALEJO [address] [place] [address] documented in this encounter Visit Diagnoses Diagnosis Sore throat- Primary Acute pharyngitis COVID-19 Sore throat Acute pharyngitis documented in this encounter Additional Health Concerns Infection Onset Date Last Indicated Resolved Time COVID19 11/28/2021 11/28/2021 12/08/2021 3:05 AM CDT documented as of this encounter Care Teams Spindle Frame Carver Relationship Specialty Start Date End Date Elle Acuna MD PCP - General Internal Medicine 03/30/19 documented as of this encounter
--- OUTSIDE RECORDS SUMMARY | 2024-05-26 02:43 | XMS_ITS | Referral Summary ---
Author Organization [facility] Address [address] [facility] [facility] [address] [place] [address] Care Team Providers Care Modeler Name Role Phone Elle Acuna MD Primary [...] provided. Assessment & Plan (08/07/2019 1:42 PM AUTO ELECTRICIAN): BMI Follow-up includes: nutrition counseling, exercise counseling and education provided. Assessment & Plan (07/07/2019 8:38 AM AUTO ELECTRICIAN): BMI Follow-up includes: nutrition counseling, exercise counseling [...] monitor Assessment & Plan (07/07/2019 8:37 AM AUTO ELECTRICIAN): Improved, as she has not exactly certain [...] daily Assessment & Plan (07/07/2019 8:33 AM AUTO ELECTRICIAN): Start Topamax as symptoms are debilitating when [...] 08/25/2019 Assessment & Plan (08/07/2019 2:00 PM AUTO ELECTRICIAN): Likely viral illness given constellation of symptoms including respiratory and GI symptosm Recommend fluids, rest, bland diet Call if no improvement or symptoms worsen Encounter for initial prescr iption of vaginal ring hormonal contraceptive 07/07/2019 09/01/2020 Assessment & Plan (07/07/2019 8:33 AM AUTO ELECTRICIAN): Last sexually active 5 days ago, took [...] Intramuscular 02/25/2020 Influenza, Unspecified 02/25/2020 Tdap 02/21/2018 Social History Tobacco Use Types Packs/Day Years [...] Orientation Straight 02/15/2021 1: 09 PM CDT Last Filed Vital Signs Vital Sign Reading [...] 09/19/2022 12:05 PM CDT Plan of Treatment Not on file Procedures Procedure Name Priority Date/Time Associated Diagnosis [...] Most Recently Relevant to Health Maintenance Insurance [email or web address] CHOICE [employer] SIG [id number] Care Teams Modeler Relationship Specialty Start Date End Date Elle Acuna MD PCP - General Internal Medicine 03/30/19
--- OUTSIDE RECORDS SUMMARY | 2024-05-26 02:43 | XMS_ITS | Encounter Summary ---
Author Organization [facility] Address [address] [place] [address] Care Team Providers Care Guest Associate Name Role Phone Elle Acuna MD Primary Care Provider Encounter Details Date Type Department Care Team (Late st Contact Info) Description 07/06/2019 Telephone [facility] [address] [place] [phone] Elle Acuna MD [address] [place] [address] Social History Tobacco Use Types Packs/Day [...] encounter Miscellaneous Notes * Telephone Encounter - Eliza Tang - 07/06/2019 9:02 AM CST Called [employer] to verify eligibility - [phone] - option 3 -spoke to Gabriela - active month to monthat least to 08/05/2019. FING RN documented in this encounter Plan of Treatment Not on file documented as of this encounter Visit Diagnoses Not on filedocumented in this encounter Care Teams Guest Associate Relationship Specialty Start Date End Date Elle Acuna MD PCP - General Internal Medicine 03/30/19 documented as of this encounter
== END 2024-05-21 14:19 | disposition home or self-care (01) ==
PROVIDERS: Emergency Provider Nurse Practitioner
DX: S39.012A Strain of muscle, fascia and tendon of lower back, initial encounter (principal); X50.3XXA Overexertion from repetitive movements, initial encounter
CPT/HCPCS: 72100; 99213; G0463

== ENCOUNTER 2024-06-03 12:59 | Emergency (ER) | payer BC, SELFPAY ==
[2024-06-03 13:23] VITALS: BP 141/86; PULSE 78; RESP 18; TEMP 35.6; O2SAT 97
--- NOTE | 2024-06-03 13:44 | ED.URI ---
HPI - URI/Sore Throat General Chief Complaint: Upper Respiratory Infection Stated Complaint: Sore Throat/Congestion Time Seen by Provider: 06/03/24 13:45 Source: patient, RN notes reviewed and old records reviewed Mode of arrival: ambulatory Limitations: no limitations History of Present Illness HPI Narrative: 44-year-old female presents to the [facility] with complaints of sore throat and congestion started last night. Did take a dose of Sudafed Treatments prior to arrival: other (Sudafed) Related Data Allergies Allergy/AdvReac Type Severity Reaction Status Date / Time meperidine AdvReac Mild Itching Verified 06/03/24 13:32 Review of Systems Review of Systems: All systems reviewed & are unremarkable except as noted in HPI and below Constitutional: Constitutional: Reports no additional constitutional complaints ENT: Reports as per HPI and Reports sore throat Cardiovascular: Cardiovascular: Reports no additional cardiovascular complaints, Denies chest pain and Denies dyspnea Respiratory: Respiratory: Reports no additional respiratory complaints, Denies chest congestion, Denies cough and Denies dyspnea Musculoskeletal: Musculoskeletal: Reports no additional musculoskeletal complaints Integumentary/Breasts: Skin/Breast: Reports system reviewed and no additional complaints, except as docu PMFSH Past Medical History Medical History (Updated 06/03/24 @ 19:47 by Bren Penn APRN) Seasonal allergies Urinary frequency Vision abnormalities Weight gain Headache Migraine with aura Surgical History Surgical History History of cholecystectomy No significant past surgical history Family History Family History Other Arthritis Cancer Diabetes mellitus Heart disease Hypertension Social History Social History Smoking status: Never smoker Alcohol intake: current Alcohol use details: Occasional Gender identity (if verbalized by the patient): Female Comments At the time of my signature, I reviewed and agree with the nursing past medical, surgical, social, and family history. There is no relevant family history pertinent to the patient complaint. Exam Const: General: cooperative, healthy appearing, comfortable, no acute distress, well developed, alert and well nourished Nutritional Appearance: well nourished Orientation/consciousness: patient oriented x3 Limitations: no limitations HENMT: Head: normal to inspection Ears: hearing grossly normal bilaterally, external ears normal, TM's normal bilaterally, EAC's normal, mastoids normal and no periauricular adenopathy Mouth: Yes Normal oral and palatal mucosa present, Yes lip normal, Yes tongue normal and Yes moist mucous membranes Throat: posterior oropharynx normal, uvula midline and no uvular edema Eyes: General: appearance normal, both eyes and all related structures Alignment and Position: alignment normal Neck: Neck: normal visual inspection, full ROM, no lymphadenopathy and no meningeal signs Chest: Chest palpation & inspection: normal inspection of the chest Resp: Effort & Inspection: normal respiratory effort and able to speak in complete sentences Auscultation: clear to auscultation bilaterally, no crackles, no rales, no rhonchi and no wheezes Cardio: Rate: regular rate Skin: General skin exam: normal color and no rashes or lesions noted Neuro: General: patient oriented x3, gait normal, moves all extremities and no meningeal signs Cognition (Neuro): normal cognition Speech: normal speech Gait exam (Neuro): Normal gait present Extrem: General: normal to inspection, full ROM, capillary refill normal and normal gait Psych: Appearance: grossly normal and well kempt Mental Status: mental status grossly normal Speech and movement: Normal speech and movement present and Clear speech present Affect: normal affect Attitude: cooperative Course Course Level of Care: Express Care Visit Vital Signs Vital signs: Vital Signs Temperature 96.0 F L 06/03/24 13:23 Pulse Rate 78 06/03/24 13:23 Respiratory Rate 18 06/03/24 13:23 Blood Pressure 141/86 H 06/03/24 13:23 Pulse Oximetry 97 06/03/24 13:23 Oxygen Delivery Room Air 06/03/24 13:23 Temperature 96.0 F L 06/03/24 13:23 Pulse Rate 78 06/03/24 13:23 Respiratory Rate 18 06/03/24 13:23 Blood Pressure 141/86 H 06/03/24 13:23 Pulse Oximetry 97 06/03/24 13:23 Oxygen Delivery Room Air 06/03/24 13:23 Reviewed MDM - URI/Sore Throat MDM Narrative Medical decision making narrative: Patient sitting comfortably in exam room. Nontoxic, vitals stable. Patient in no acute distress. Patient presents with symptoms since last night. Patient flu, COVID, strep are negative Patient appropriate for outpatient treatment of viral URI Discharge instructions reviewed with patient, as well as provided in writing per nursing staff. The instructions also include specific and strict return/GO TO THE ER as well as f/u information. All questions have been answered, and the patient deny any further questions with discharge and discharge plan. Some parts of this dictation were generated by voice recognition software and may contain typographical and/or grammatical inaccuracies. Differential Diagnosis Differential diagnosis: Likely upper respiratory infection, otitis media, sinusitis, viral infection, bronchitis, influenza and pharyngitis Lab Data Labs: Lab Results 06/03/24 06/03/24 Range/Units 13:48 13:49 POC Influenza A Ag Negative (Negative) POC Influenza B Ag Negative (Negative) POC SARS CoV-2 Ag Negative (Negative) POC Grp A Strep Screen Negative (Negative) Reviewed Critical Care Time Critical Care Time Critical Care Time: No Discharge Plan Discharge Clinical Impression: PND (post-nasal drip) Upper respiratory infection Qualifiers: URI type: unspecified viral URI Qualified Code(s): J06.9 - Acute upper respiratory infection, unspecified Patient Disposition: Home, Self-Care Condition: Stable Instructions: Antibiotic Form, Upper Respiratory Infection (ED), Postnasal Drip (DC) Additional Instructions: Your rapid strep swab was negative today at [facility]. A throat culture will be sent to the laboratory for further testing. If the test is positive, you will receive a phone call within 48 hours and an appropriate antibiotic will be initiated at that time. Your rapid COVID test were negative Your rapid flu test was negative Your symptoms are likely due to a viral illness, which is not treated with antibiotics. Typically viral infections last 7-10 days, can linger for couple of weeks. It is very important to treat your symptoms. Drink plenty of water, Gatorade, Pedialyte, ice pops or Jell-O. -Alternate Tylenol and Motrin per package directions for fever or pain. You can alternate every 4 hours -Antihistamine medication such as Zyrtec/Claritin/Brenda during the day can help improve symptoms. -doing daily nasal irrigations can help relieve pressure your sinuses. Things like a Neti pot -Use Flonase twice a day for 5 days then daily to help reduce the inflammation and dry up your sinuses. -You can also use Mucinex. Be sure to drink plenty of water with this medication at least 8 ounces with every dose and it is important to drink 8 to 10 glasses of water per day. Water is a natural decongestant -Eat and drink things that are easy to swallow, like tea or soup, or popsicles. -Oral rinses such as: Salt water gargles and/or may use topical anesthetic (eg. Chloraseptic spray) or lozenges to relieve dryness or throat pain). -Frequent hand washing or hand national business director is one of the best ways to prevent spread of infection. -Using a vaporizer or humidifier at night will also help thin secretions and help with coughing up phlegm. -Follow up with primary care provider in 7-10 days if condition is not improving - For new or worsening symptoms go directly to the nearest ER Patient Language: Paraguayan Prescriptions: No Action tramadol 50 mg tablet 50 mg PO Q8H PRN (Reason: pain) Qty: 15 0RF Follow-up/Referrals: PHYSICIAN,PLUMBER AND TINNER [Primary Care Provider] - Stand Alone Forms: Work/School Release IP Time of Disposition: 14:03
[2024-06-03 13:50] LABS: EDCOVIDSCREEN Negative (Negative)
[2024-06-03 13:50] LABS: EDINFLUASCREEN Negative (Negative); EDINFLUBSCREEN Negative (Negative); EDSTREPNEGPOS1 Negative (Negative)
--- OUTSIDE RECORDS SUMMARY | 2024-06-10 20:02 | XMS_ITS | Encounter Summary ---
Author Organization [facility] Address [address] [place] [address] [address] [place] [address] Care Team Providers Care Oracle Adf Developer Name Role Phone Elle Acuna MD Primary Care Provider Reason for Visit * Reason Onset Date Comments Covid-19 Home Monitoring 12/04/2021 Encounter Details Date Type Department Care Team (Late st Contact Info) Description 12/04/2021 Telephone [facility] Accountable Care Organization [address] [place] [address] Yonas Clay, TANIA [address] [place] [address] [address] [place] [address] Covid-19 Home Monitoring Social History Tobacco Use [...] 12/04/2021 11:51 AM CDT COVID Home Monitoring residential director Call Patient questionnaire escalated for marketing strategy analyst due to: Diarrhea Brief description of reason for call: pt reports worsening diarrhea - pt states taking otc pepto with some relief. Pt confirms good hydration. Pt states has claminess feeling after taking tylenol - pt advised not a common effects and if continues recommending talking to pcp. Pt denies any immediateneeds and is comfortable with monitoring her symptoms. marketing strategy analyst of each of the following symptoms the [...] documented as of this encounter Care Teams Oracle Adf Developer Relationship Specialty Start Date End Date Elle Acuna MD PCP - General Internal Medicine 03/30/19 documented as of this encounter
--- OUTSIDE RECORDS SUMMARY | 2024-06-10 20:02 | XMS_ITS | Clinical Summary ---
Author Organization [facility] [employer] Address [address] [place] [address] Care Team Providers Care Case Management Rn Name Role Phone Unavailable Primary Care Provider Unavailabl e Source Comments [facility],non-owned Affiliates and Associated Physician Practices is amultiple site organization consisting of ambulatory clinics and hospital sitesin [place], [place], [place] and [place]. This disclosure is being madepursuant to the Care Everywhere program and may not contain all information available regarding this patient. Last updated 18.[facility] [employer] Allergies Active Allergy Reactions Criticality Noted Date [...] Comments Blood Pressure 108/60 06/30/2017 11:02 AM PIPE FITTER SUPERVISOR MAINTENANCE Pulse 73 06/30/2017 11:02 AM PIPE FITTER SUPERVISOR MAINTENANCE Temperature 36.7 ??C (98 ??F) 06/30/2017 11:02 AM PIPE FITTER SUPERVISOR MAINTENANCE Respiratory Rate 16 06/30/2017 11:02 AM PIPE FITTER SUPERVISOR MAINTENANCE Oxygen Saturation 98% 06/30/2017 11:02 AM PIPE FITTER SUPERVISOR MAINTENANCE Inhaled Oxygen Concentration - - Weight 120.2 kg (265 lb) 06/30/2017 11:02 AM PIPE FITTER SUPERVISOR MAINTENANCE Height 172.7 cm (5' 8 ) 06/30/2017 11:02 AM PIPE FITTER SUPERVISOR MAINTENANCE Body Mass Index 40.29 06/30/2017 11:02 AM PIPE FITTER SUPERVISOR MAINTENANCE Plan of Treatment Health Maintenance Due Date [...]
--- OUTSIDE RECORDS SUMMARY | 2024-06-10 20:02 | XMS_ITS | Clinical Summary ---
Author Organization [facility] Address [address] [facility] [place] [address] Care Team Providers Care Senior Audit Manager Name Role Phone Elle Acuna MD Primary [...] provided. Assessment & Plan (08/07/2019 1:42 PM EMPLOYEE BENEFITS ADMINISTRATOR): BMI Follow-up includes: nutrition counseling, exercise counseling and education provided. Assessment & Plan (07/07/2019 8:38 AM EMPLOYEE BENEFITS ADMINISTRATOR): BMI Follow-up includes: nutrition counseling, exercise counseling [...] monitor Assessment & Plan (07/07/2019 8:37 AM EMPLOYEE BENEFITS ADMINISTRATOR): Improved, as she has not exactly certain [...] daily Assessment & Plan (07/07/2019 8:33 AM EMPLOYEE BENEFITS ADMINISTRATOR): Start Topamax as symptoms are debilitating when [...] 08/25/2019 Assessment & Plan (08/07/2019 2:00 PM EMPLOYEE BENEFITS ADMINISTRATOR): Likely viral illness given constellation of symptoms including respiratory and GI symptosm Recommend fluids, rest, bland diet Call if no improvement or symptoms worsen Encounter for initial prescr iption of vaginal ring hormonal contraceptive 07/07/2019 09/01/2020 Assessment & Plan (07/07/2019 8:33 AM EMPLOYEE BENEFITS ADMINISTRATOR): Last sexually active 5 days ago, took [...] Most Recently Relevant to Health Maintenance Insurance [email or web address] [facility] SIG [id number] Care Teams Senior Audit Manager Relationship Specialty Start Date End Date Elle Acuna MD PCP - General Internal Medicine 03/30/19
--- OUTSIDE RECORDS SUMMARY | 2024-06-10 20:02 | XMS_ITS | Encounter Summary ---
Author Organization [facility] Medical Group Address [address] [place] [address] Care Team Providers Care In School Suspension Aide Name Role Phone Elle Acuna MD Primary Care Provider Reason for Visit * Reason Onset Date Comments Covid-19 Home Monitoring 12/06/2021 Non-res ponder Encounter Details Date Type Department Care Team (Late st Contact Info) Description 12/06/2021 Telephone [facility] Accountable Care Organization [address] [place] [address] Usha Rowe MA [address] [facility] [address] [place] [address] Covid-19 Home Monitoring (Non-responder) Social History Tobacco [...] documented as of this encounter Care Teams In School Suspension Aide Relationship Specialty Start Date End Date Elle Acuna MD PCP - General Internal Medicine 03/30/19 documented as of this encounter
--- OUTSIDE RECORDS SUMMARY | 2024-06-10 20:02 | XMS_ITS | Encounter Summary ---
Author Organization [facility] Healthcare Address [address] [place] [address] Care Team Providers Care Supervisor Type Bar And Segment Name Role Phone Elle Acuna MD Primary Care Provider Encounter Details Date Type Department Care Team (Late st Contact Info) Description 02/15/2021 Patient Self-Triage [facility] [address] [place] [address] Mycmindyt, Generic Provider [address] [place] [address] Social History Tobacco Use Types Packs/Day Years [...] on filedocumented in this encounter Care Teams Supervisor Type Bar And Segment Relationship Specialty Start Date End Date Elle Acuna MD PCP - General Internal Medicine 03/30/19 documented as of this encounter
--- OUTSIDE RECORDS SUMMARY | 2024-06-10 20:02 | XMS_ITS | Encounter Summary ---
Author Organization [facility] Address [address] [place] [address] Care Team Providers Care Cnc Mill And Lathe Operator Name Role Phone Unavailable Primary Care Provider Unavailabl e Reason for Visit * Reason Comments Sore Throat for 2 weeks Encounter Details Date Type Department Care Team (Late st Contact Info) Description 06/30/2017 11:00 AM STATISTICS TUTOR Office Visit [facility] [address] [address] Provider, Denisa [facility] Acute pharyngitis, unspecified etiology (Primary Dx); [...] Comments Blood Pressure 108/60 06/30/2017 11:02 AM STATISTICS TUTOR Pulse 73 06/30/2017 11:02 AM STATISTICS TUTOR Temperature 36.7 ??C (98 ??F) 06/30/2017 11:02 AM STATISTICS TUTOR Respiratory Rate 16 06/30/2017 11:02 AM STATISTICS TUTOR Oxygen Saturation 98% 06/30/2017 11:02 AM STATISTICS TUTOR Inhaled Oxygen Concentration - - Weight 120.2 kg (265 lb) 06/30/2017 11:02 AM STATISTICS TUTOR Height 172.7 cm (5' 8 ) 06/30/2017 11:02 AM STATISTICS TUTOR Body Mass Index 40.29 06/30/2017 11:02 AM STATISTICS TUTOR documented in this encounter Patient Instructions * Patient Instructions* Jacoby Sam, PATTY-ENVIRONMENTAL ASSOCIATE - 06/30/2017 11:24 AM STATISTICS TUTOR -Take and finish your prescriptions as directed. [...] be given by phone without another evaluation. ISTICS TUTOR documented in this encounter Progress Notes * [...] Strep A INTERNAL CONTROL Present Lot Number [id number] Expiration Date [id number] ISTICS TUTOR documented in this encounter Plan of Treatment [...] Strep A Internal Control Present Lot # [id number] Expiration Date [id number] Throat ENTIRE THROAT (SURFACE REGION OF NECK) / Unknown 06/30/2017 [facility] - POINT OF CARE ORDERABLES documented in this encounter Visit Diagnoses Diagnosis Acute pharyngitis, unspecified etiology- Primary Acute maxillary sinusitis, recurrence not specified documented in this encounter
--- OUTSIDE RECORDS SUMMARY | 2024-06-10 20:02 | XMS_ITS | Encounter Summary ---
Author Organization [facility] Medical Group Address [address] [address] Care Team Providers Care Continuity Writer Name Role Phone Elle Acuna MD Primary Care Provider Encounter Details Date Type Department Care Team (Late st Contact Info) Description 02/15/2021 1:15 PM CDT Telemedicine [facility] Medical [facility] Virtual Care [address] [place] [phone] Helen Romano NP [id number] [place] [address] Acute non-recurrent maxillary sinusitis (Primary Dx); Otalgia [...] this encounter Progress Notes * Helen Romanole, VOICE OVER ARTIST - 02/15/2021 1:15 PM CDT Images from the original note were not included. [facility] [place] Care Screening Evaluation for COVID-19 This was a telemedicine visit with Iveth maharaj which took place via real-time video connection with [employer]. During the visit, I was located at home and the patient was located at home in the state of [place]. The patient visit started at 1320 and [...] relief pt instructed to be seen at [facility] for COVID testing. Patient instructions were included in the After Visit Summary sent to the patient's [employer] account. Focused HPI: The patient-submitted questionnaire was [...] ears documented in this encounter Care Teams Continuity Writer Relationship Specialty Start Date End Date Elle Acuna MD PCP - General Internal Medicine 03/30/19 documented as of this encounter
--- OUTSIDE RECORDS SUMMARY | 2024-06-10 20:02 | XMS_ITS | Encounter Summary ---
Author Organization [facility] Healthcare Address [address] [place] [address] Care Team Providers Care Steelworker Name Role Phone Elle Acuna MD Primary Care Provider Reason for Referral * Diagnostic Imaging (Routine) - Closed Specialty Diagnoses / Procedures Referred By Abebe saldivar Referred To Contact Diagnoses Encounter for screening mammogram for malignant neoplasm of breast Procedures Screening Mammogram Bilateral W Elle Valente MD Phone: tel: fax: [place] [address] [place] [phone] Referral ID Status Reason Start Date Expiration Date Visits Re quested Visits Authorized [id number] Closed 09/02/2020 10/02/2021 1 1 Reason for Visit * Diagnostic Imaging (Routine) - Closed Specialty Diagnoses / Procedures Referred By Abebe saldivar Referred To Contact Diagnoses Encounter for screening mammogram for malignant neoplasm of breast Procedures Screening Mammogram Bilateral W Elle Valente MD Phone: tel: fax: [place] [address] [place] [phone] Referral ID Status Reason Start Date Expiration Date Visits Re quested Visits Authorized [id number] Closed 09/02/2020 10/02/2021 1 1 Encounter Details Date Type Department Care Team (Latest Contact Info) Description 09/23/2020 1:39 PM CDT - 09/23/2020 11:59 PM CDT Hospital Encounter [facility] - [address] [facility] [address] [place] [address] Elle Acuna MD [address] [place] [address] Encounter for screening mammogram for malignant neoplasm [...] breast documented in this encounter Care Teams Steelworker Relationship Specialty Start Date End Date Elle Acuna MD PCP - General Internal Medicine 03/30/19 documented as of this encounter
--- OUTSIDE RECORDS SUMMARY | 2024-06-10 20:02 | XMS_ITS | Encounter Summary ---
Author Organization [facility] Medical Group Address [address] [place] [address] Care Team Providers Care Shot Man Name Role Phone Elle Acuna MD Primary [...] Description 12/05/2021 6:00 PM CDT Office Visit [facility] Outpatient Center [address] [address] Maranda Fountain NP [address] [place] [address] [address] [place] [address] Sore throat (Primary Dx); COVID-19 [...] be sent through Care Everywhere. * Pharyngitis (Mat Puncher) (Slovenian) documented in this encounter Progress Notes * [...] tenderness or frontal sinus tenderness. Mouth/Throat: Lips: [place]. Mouth: Mucous membranes are moist. Tongue: Tongue [...] pathogens. ALEJO HERRERA Comment:Testing performed by : [facility], [address] [place]., [address] Throat 12/05/2021 6:36 PM CDT 12/06/2021 3:09 AM CDT Vaishali ALEJO HERRERA - 12/07/2021 1:41 PM CDT Testing performed by [facility] Microbiology Laboratory ([phone]). Maranda Fountain NP LAB MICROBIOLOGY - GENERAL EMANUEL LOZANO Final Result ALEJO [address] [address] [place] [address] documented in this encounter Visit Diagnoses Diagnosis Sore throat- Primary Acute pharyngitis COVID-19 Sore throat Acute pharyngitis documented in this encounter Additional Health Concerns Infection Onset Date Last Indicated Resolved Time COVID19 11/28/2021 11/28/2021 12/08/2021 3:05 AM CDT documented as of this encounter Care Teams Shot Man Relationship Specialty Start Date End Date Elle Acuna MD PCP - General Internal Medicine 03/30/19 documented as of this encounter
--- OUTSIDE RECORDS SUMMARY | 2024-06-10 20:02 | XMS_ITS | Encounter Summary ---
Author Organization [facility] Medical Group Address [address] [place] [address] Care Team Providers Care Silk Spooler Name Role Phone Elle Acuna MD Primary Care Provider Encounter Details Date Type Department Care Team (Late st Contact Info) Description 11/29/2021 Orders Only [facility] Accountable Care Organization [address] [place] [address] Nicolette Franco RN [address] [place] [address] [address] [facility] [address] [place] [address] Social History Tobacco Use Types Packs/Day Years [...] documented as of this encounter Care Teams Silk Spooler Relationship Specialty Start Date End Date Elle Acuna MD PCP - General Internal Medicine 03/30/19 documented as of this encounter
--- OUTSIDE RECORDS SUMMARY | 2024-06-10 20:02 | XMS_ITS | Referral Summary ---
Author Organization [facility] Address [address] [facility] [facility] [place] [address] Care Team Providers Care Standards Analyst Name Role Phone Elle Acuna MD Primary [...] provided. Assessment & Plan (08/07/2019 1:42 PM PHOTO EDITOR): BMI Follow-up includes: nutrition counseling, exercise counseling and education provided. Assessment & Plan (07/07/2019 8:38 AM PHOTO EDITOR): BMI Follow-up includes: nutrition counseling, exercise counseling [...] monitor Assessment & Plan (07/07/2019 8:37 AM PHOTO EDITOR): Improved, as she has not exactly certain [...] daily Assessment & Plan (07/07/2019 8:33 AM PHOTO EDITOR): Start Topamax as symptoms are debilitating when [...] 08/25/2019 Assessment & Plan (08/07/2019 2:00 PM PHOTO EDITOR): Likely viral illness given constellation of symptoms including respiratory and GI symptosm Recommend fluids, rest, bland diet Call if no improvement or symptoms worsen Encounter for initial prescr iption of vaginal ring hormonal contraceptive 07/07/2019 09/01/2020 Assessment & Plan (07/07/2019 8:33 AM PHOTO EDITOR): Last sexually active 5 days ago, took [...] Most Recently Relevant to Health Maintenance Insurance [employer] SIG [id number] Care Teams Standards Analyst Relationship Specialty Start Date End Date Elle Acuna MD PCP - General Internal Medicine 03/30/19
--- OUTSIDE RECORDS SUMMARY | 2024-06-10 20:02 | XMS_ITS | Encounter Summary ---
Author Organization [facility] Address [address] [address] Care Team Providers Care Faculty Administrator Name Role Phone Elle Acuna MD Primary Care Provider Reason for Visit * Reason Comments Nasal Congestion Sore Throat Headache Encounter Details Date Type Department Care Team (Late st Contact Info) Description 11/28/2021 2:15 PM CDT Office Visit [facility] Out[facility] Center [address] [phone] [place] [address] [place] [address] [address] [place], [place] [id number] COVID-19 (Primary Dx) Social History Tobacco Use [...] Patient Instructions * Patient Instructions* Rossana Marin, SENIOR BIOINFORMATICS SPECIALIST - 11/28/2021 2:36 PM CDT The rapid [...] and the virus that causes it. The [facility] Department will be reaching out to all [...] loosen secretions in the nose and lungs. Oupm-lki-xuykfnf cold medicines will not shorten the length of time you???re sick, but they may be helpful for relieving the following symptoms: headache, cough, sore throat, and nasal and sinus congestion. If you take prescription medicines, ask your healthcare provider or pharmacist which ovdi-rnr-cbgmiwb medicines are safe to use. (Note: DO [...] yourself. Get rest and stay hydrated. Take bqjp-zlu-uxfpcat medicines to help you feelbetter. Stay in [...] and need to call 911, notify the dial lathe operator that you have or think you [...] with someone who is sick visit https://www.cdc .gov/coronavirus/2019-ncov/ajtib-vxid-zqpnkr/rpvomv-bm-bakln-quarters.html For more information on COVID-19 and pets [...] tenderness or frontal sinus tenderness. Mouth/Throat: Lips: [place]. Mouth: Mucous membranes are moist. Pharynx: Uvula [...] and the virus that causes it. The [facility] Department will be reaching out [...] loosen secretions in the nose and lungs. Hthd-wsq-shifpth cold medicines will not shorten the length of time you???re sick, but they may be helpful for relieving the following symptoms: headache, cough, sore throat, and nasal and sinus congestion. If you take prescription medicines, ask your healthcare provider or pharmacist which iwdt-quf-odrfxss medicines are safe to use. (Note: DO [...] yourself. Get rest and stay hydrated. Take fxpu-pen-xgcxiym medicines to help you feel better. ??? [...] and need to call 911, notify the dial lathe operator that you have or think you [...] with someone who is sick visit https://www.cdc .gov/coronavirus/2019-ncov/vqxrj-jeog-fyfwcv/zuneil-rd-tdelu-quarters.html For more information on COVID-19 and pets [...] Swab 11/28/2021 2:37 PM CDT Rossana Marin SENIOR BIOINFORMATICS SPECIALIST POINT OF CARE TEST ORDERABLES Final Result * (ABNORMAL) COVID-19 POC (11/28/2021 2:37 PM CDT) Pathologist [facility] COVID-19 RNA PCR POC Positive( A) Not Detected, Negative, Undetected [facility] COVID-19 Ag POC (BD Veritor) Positive( A) Presumptive Negative, Invalid [facility] Nasal 11/28/2021 2:37 PM CDT Rossana Marin SENIOR BIOINFORMATICS SPECIALIST POINT OF CARE TEST ORDERABLES Final Result [facility] [address] [place] [address] documented in this encounter Visit Diagnoses Diagnosis COVID-19- Primary documented in this encounter Additional Health Concerns Infection Onset Date Last Indicated Resolved Time COVID: Suspected 11/28/2021 11/28/2021 11/28/2021 2:37 PM CDT COVID19 11/28/2021 11/28/2021 12/08/2021 3:05 AM CDT documented as of this encounter Care Teams Faculty Administrator Relationship Specialty Start Date End Date Elle Acuna MD PCP - General Internal Medicine 03/30/19 documented as of this encounter
--- OUTSIDE RECORDS SUMMARY | 2024-06-10 20:02 | XMS_ITS | Encounter Summary ---
Author Organization [facility] Address [address] [place] [address] [address] [place] [address] Care Team Providers Care International Student Advisor Name Role Phone Elle Acuna MD Primary Care Provider Reason for Visit * Reason Onset Date Comments Covid-19 Home Monitoring 12/08/2021 Encounter Details Date Type Department Care Team (Late st Contact Info) Description 12/08/[address] [facility] Accountable Care Organization [address] [place] [address] Angela Iraheta CMA [address] [place] [address] Covid-19 Home Monitoring Social History Tobacco Use [...] This patient is being disenrolled from the Meteorology Professor COVID-19 Home Monitoring program for the following [...] documented as of this encounter Care Teams International Student Advisor Relationship Specialty Start Date End Date Elle Acuna MD PCP - General Internal Medicine 03/30/19 documented as of this encounter
--- OUTSIDE RECORDS SUMMARY | 2024-06-10 20:02 | XMS_ITS | Encounter Summary ---
Author Organization [facility] Address [address] [place] [address] Care Team Providers Care Ent Consultant Name Role Phone Elle Acuna MD Primary Care Provider Encounter Details Date Type Department Care Team (Late st Contact Info) Description 12/05/2021 9:40 PM CDT Lab [address] [address] Sore throat Social History Tobacco Use Types [...] ALEJO HERRERA Comment:Testing performed by : [facility], [address] [place] [address] Throat 12/05/2021 6:36 PM CDT 12/06/2021 3:09 AM CDT Vaishali ALEJO SHARON - 12/07/2021 1:41 PM CDT Testing performed by [facility] Microbiology Laboratory ([phone]). us Maranda Fountain NP LAB MICROBIOLOGY - [facility] Final Result [facility] [address] [place] [address] documented in this encounter Visit Diagnoses Diagnosis Sore throat Acute pharyngitis documented in this encounter Additional Health Concerns Infection Onset Date Last Indicated Resolved Time COVID19 11/28/2021 11/28/2021 12/08/2021 3:05 AM CDT documented as of this encounter Care Teams Ent Consultant Relationship Specialty Start Date End Date Elle Acuna MD PCP - General Internal Medicine 03/30/19 documented as of this encounter
--- OUTSIDE RECORDS SUMMARY | 2024-06-10 20:02 | XMS_ITS | Encounter Summary ---
Author Organization [facility] Healthcare Address [address] [place] [address] Care Team Providers Care Home Health Registered Nurse Name Role Phone Elle Acuna MD Primary Care Provider Encounter Details Date Type Department Care Team (Late st Contact Info) Description 09/20/2020 Telephone [facility] [address] [place] [address] [address] [place] [address] Emily Nunez, RT Social History Tobacco Use [...] documented as of this encounter Care Teams Home Health Registered Nurse Relationship Specialty Start Date End Date Elle Acuna MD PCP - General Internal Medicine 03/30/19 documented as of this encounter
--- OUTSIDE RECORDS SUMMARY | 2024-06-10 20:02 | XMS_ITS | Encounter Summary ---
Author Organization [facility] Address [address] [facility] [address] [place] [address] Care Team Providers Care Aquatic Performer Name Role Phone Elle Acuna MD Primary Care Provider Reason for Visit * Reason Comments Sore Throat Sx started 4/5; Cough Began day after sore throat... Nasal Congestion Earache More pain/pressure i n left ear; minimal in right Encounter Details Date Type Department Care Team (Late st Contact Info) Description 09/14/2021 2:00 PM CDT Office Visit [facility] Outpatient Center [address] [phone] Rossana Marin NP [address] [place] [address] Non-recurrent acute suppurative otitis media of left [...] Patient Instructions * Patient Instructions* Rossana Marin, STEAMBOAT PILOT - 09/14/2021 2:00 PM CDT Images from [...] REQUIRES IMMEDIATE ATTENTION. Patient Education Ear Infection CONSULTING NURSE: An ear infection is also called otitis [...] ask them during your visits. ?? 2017 [employer] Information is for End User's use only and may not be sold, redistributed or otherwise used for commercial purposes. All illustrations and images included in CareNotes?? are the copyrighted property of [employer]. or [employer]. The above information is an nutrition services aide only. It is not intended as [...] this encounter Progress Notes * Rossana Marin, STEAMBOAT PILOT - 09/14/2021 2:00 PM CDT Images from [...] tenderness or frontal sinus tenderness. Mouth/Throat: Lips: [place]. Mouth: Mucous membranes are moist. Pharynx: Uvula [...] return to work Patient Education Ear Infection CONSULTING NURSE: An ear infection is also called otitis [...] ask them during your visits. ?? 2017 [employer] Information is for End User's use only and may not be sold, redistributed or otherwise used for commercial purposes. All illustrations and images included in CareNotes?? are the copyrighted property of [employer]. or [employer]. The above information is an nutrition services aide only. It is not intended as [...] PM CDT) Influenza A Ag, POC Negative [facility] Influenza B Ag, POC Negative [facility] COVID-19 Ag POC Presumptive Negative Presumptive Negative, Invalid [facility] 09/14/2021 2:38 PM CDT us Rossana Marin NP POINT OF CARE TEST ORDERABLES Edited Result - Final Performing Organization Address City/State/[facility] Co de Phone Number [facility] [address] [place] [address] * POCT rapid strep A (09/14/2021 2:32 [...] documented as of this encounter Care Teams Aquatic Performer Relationship Specialty Start Date End Date Elle Acuna MD PCP - General Internal Medicine 03/30/19 documented as of this encounter
--- OUTSIDE RECORDS SUMMARY | 2024-06-10 20:02 | XMS_ITS | Referral Summary ---
Author Organization [facility] Address [address] [place] [address] Care Team Providers Care Gum Sprayer Name Role Phone Unavailable Primary Care Provider Unavailabl e Source Comments [facility],non-owned Affiliates and Associated Physician Practices is amultiple site organization consisting of ambulatory clinics and hospital sitesin [place], [place], [place] and [place]. This disclosure is being madepursuant to the Care Everywhere program and may not contain all information available regarding this patient. Last updated 18.[facility] [employer]. Allergies Active Allergy Reactions Criticality Noted Date [...] Comments Blood Pressure 108/60 06/30/2017 11:02 AM INTERCELL CONNECTOR PLACER Pulse 73 06/30/2017 11:02 AM INTERCELL CONNECTOR PLACER Temperature 36.7 ??C (98 ??F) 06/30/2017 11:02 AM INTERCELL CONNECTOR PLACER Respiratory Rate 16 06/30/2017 11:02 AM INTERCELL CONNECTOR PLACER Oxygen Saturation 98% 06/30/2017 11:02 AM INTERCELL CONNECTOR PLACER Inhaled Oxygen Concentration - - Weight 120.2 kg (265 lb) 06/30/2017 11:02 AM INTERCELL CONNECTOR PLACER Height 172.7 cm (5' 8 ) 06/30/2017 11:02 AM INTERCELL CONNECTOR PLACER Body Mass Index 40.29 06/30/2017 11:02 AM INTERCELL CONNECTOR PLACER Plan of Treatment Not on file
--- OUTSIDE RECORDS SUMMARY | 2024-06-10 20:02 | XMS_ITS | Encounter Summary ---
Author Organization [facility] Address [address] [address] Care Team Providers Care Buckle Wire Inserter Name Role Phone Elle Acuna MD Primary Care Provider Reason for Visit * Reason Comments Sore Throat Sore throat and ear pain bilateral Earache Encounter Details Date Type Department Care Team (Late st Contact Info) Description 09/19/2022 12:00 PM CDT Office Visit [facility] Outpatient Center [address] [phone] Kia Marroquin, ORCHESTRA TEACHER [address] [place] [address] Strep pharyngitis (Primary Dx); Sore throat Social [...] be sent through Care Everywhere. * Pharyngitis (Director Of Technology) (Romanian) documented in this encounter Ordered Prescriptions Prescription Sig Dispense Quantity Refills Last Filled Start Date End Date amoxicillin (AMOXIL) 500 mg tablet/capsuleIndic ations:Strep pharyngitis Take 1 tablet/caps ule (500 mg total) by mouth 3 (three) times a day for 10 days 30 tablet/capsule 09/19/2022 09/29/2022 documented in this encounter Progress Notes * Kia Marroquin, ORCHESTRA TEACHER - 09/19/2022 12:00 PM CDT Images from [...] CDT) Influenza A Ag, POC Negative Negative [facility] Influenza B Ag, POC Negative Negative [facility] COVID-19 Ag POC Presumptive Negative Presumptive Negative, Invalid [facility] Nasal 09/19/2022 12:2 9 PM CDT Kia Marroquin ORCHESTRA TEACHER POINT OF CARE TEST ORDERABLES Final Result Performing Organization Address City/State/[facility] Co de Phone Number [facility] [address] [place] [address] * (ABNORMAL) POCT rapid strep A (09/19/2022 12:22 PM CDT) Rapid Strep A, POC Positive(A ) Negative Swab 09/19/2022 12:2 2 PM CDT us Kia Marroquin ORCHESTRA TEACHER POINT OF CARE TEST ORDERABLES Final Result documented in this encounter Visit Diagnoses Diagnosis Strep pharyngitis- Primary Sore throat Acute pharyngitis documented in this encounter Additional Health Concerns Infection Onset Date Last Indicated Resolved Time COVID: Suspected 09/19/2022 09/19/202209/19/2022 12:30 PM CDT documented as of this encounter Care Teams Buckle Wire Inserter Relationship Specialty Start Date End Date Elle Acuna MD PCP - General Internal Medicine 03/30/19 documented as of this encounter
--- OUTSIDE RECORDS SUMMARY | 2024-06-10 20:02 | XMS_ITS | Encounter Summary ---
Author Organization [facility] Address [address] [place] [address] Care Team Providers Care Customer Complaint Clerk Name Role Phone Unavailable Primary Care Provider Unavailabl e Reason for Visit * Reason Onset Date Comments Follow-up 07/02/2017 Encounter Details Date Type Department Care Team ([facility] Contact Info) Description 07/02/2017 Telephone [facility] [address] [phone] Emily Lim Follow-up Social History [...]
--- OUTSIDE RECORDS SUMMARY | 2024-06-10 20:02 | XMS_ITS | Patient Health Summary ---
Author Organization [facility] Address [address] [place] [address] Care Team Providers Care Motorsports Technician Name Role Phone Unavailable Primary Care Provider Unavailabl e Note from [facility][note 3],non-owned Affiliates and Associated Physician Practices is amultiple site organization consisting of ambulatory clinics and hospital sitesin [place], [place], [place] and [place]. This disclosure is being madepursuant to the Care Everywhere program and may not contain all information available regarding this patient. Last updated 18.[facility] Allergies * Meperidine Active Problems No known active problems Social History Tobacco Use Types Packs/Day Years Used Date Smoking Tobacco: Never Smokeless Tobacco: Never Sex and Gender Information Value Date Recorded Sex Assigned at Not on file Gender Identity Not on file Sexual Orientation Not on file Last Filed Vital Signs Vital Sign Reading Time Taken Comments Blood Pressure 108/60 06/30/2017 11:02 AM DIESEL ENGINE II PIPE FITTER Pulse 73 06/30/2017 11:02 AM DIESEL ENGINE II PIPE FITTER Temperature 36.7 ??C (98 ??F) 06/30/2017 11:02 AM DIESEL ENGINE II PIPE FITTER Respiratory Rate 16 06/30/2017 11:02 AM DIESEL ENGINE II PIPE FITTER Oxygen Saturation 98% 06/30/2017 11:02 AM DIESEL ENGINE II PIPE FITTER Inhaled Oxygen Concentration - - Weight 120.2 kg (265 lb) 06/30/2017 11:02 AM DIESEL ENGINE II PIPE FITTER Height 172.7 cm (5' 8 ) 06/30/2017 11:02 AM DIESEL ENGINE II PIPE FITTER Body Mass Index 40.29 06/30/2017 11:02 AM DIESEL ENGINE II PIPE FITTER Procedures * STREP A SCREEN - POINT OF CARE (AMB) STL(Performed 06/30/2017) Performed for Acute pharyngitis, unspecified etiology Results * STREP A SCREEN - POINT OF CARE (AMB) STL (06/30/2017) Strep A Rapid POCT Negative Negative Strep A Internal Control Present Lot # [id number] Expiration Date 1840563 Throat ENTIRE THROAT (SURFACE REGION OF NECK) / Unknown 06/30/2017 Jacoby Sam BRIMMER BLOCKER-HOUSEKEEPING LEAD LAB - POINT OF CARE ORDERABLES
--- OUTSIDE RECORDS SUMMARY | 2024-06-10 20:02 | XMS_ITS | Encounter Summary ---
Author Organization [facility] Healthcare Address [address] [place] [address] Care Team Providers Care Hospital Housekeeper Name Role Phone Elle Acuna MD Primary Care Provider Encounter Details Date Type Department Care Team (Late st Contact Info) Description 12/07/2023 Orders Only [facility] [address] [place] [phone] Scanning, Provider Social History Tobacco Use Types [...] on filedocumented in this encounter Care Teams Hospital Housekeeper Relationship Specialty Start Date End Date Elle Acuna MD PCP - General Internal Medicine 03/30/19 documented as of this encounter
--- OUTSIDE RECORDS SUMMARY | 2024-06-10 20:03 | XMS_ITS | Encounter Summary ---
Author Organization [facility] Healthcare Address [address] [place] [address] Care Team Providers Care Puff Ironer Name Role Phone No, Physician Primary Care Provider [phone] Encounter Details Date Type Department Care Team (Late st Contact Info) Description 03/24/2019 4:11 PM CDT - 03/24/2019 7:49 PM CDT Hospital Encounter [facility] Emergency Department [address] [place] [address] Unknown, Kristofer Cabrera MD [address] [place] [address] Discharge Disposition: Discharge to home or self [...] WBC 9.5 3.8 - 9.9 X10 3/ul [facility] RBC 4.71 3.90 - 5.20 x10 6/ul [facility] Hemoglobin 14.2 11.9 - 15.5 g/dL [facility] Hct 40.6 35.6 - 45.5 % [facility] MCV 86.2 81.3 - 96.4 fl [facility] MCH 30.1 27.1 - 33.3 pg [facility] MCHC 35.0 32.3 - 35.7 g/dl [facility] RDW 12.4 11.1 - 14.9 % [facility] Plt Count 206 150 - 400 x10 3/ul [facility] MPV 10.7 9.1 - 12.3 fl [facility] Neut % 67.2 % [facility] Immature Gran % 0.1 % [facility] Lymph % 24.5 % [facility] [place] % 7.1 % [facility] E [facility] - [facility] Eos % 0.6 % [facility] E [facility] AUTO BASO % 0.5 % [facility] NEUTROPHIL ABS # 6.4 1.7 - 6.5 x10 3/ul [facility] Immature Gran # 0.0 0.0 - 0.1 x10 3/ul [facility] Absolute Lymphs (auto) 2.3 0.8 - 3.3 x10 3/ul [facility] Absolute Monos (auto) 0.7 0.2 - 0.8 x10 3/ul [facility] Absolute Eos (auto) 0.1 0.0 - 0.5 x10 3/ul [facility] BASOPHIL ABS # 0.1 0.0 - 0.1 x10 3/ul [facility] Nucleat RBC Rel Count 0.0 #/100WBC [facility] NRBC abs 0.00 0.00 - 0.01 x10 3/ul [facility] Platelet Evaluation AGREE AGREE [facility] Comment: Slide review of platelets correlates with instrument count. RBC Morphology NORMAL N[facility]AL [facility] Absolute Neutrophils 6,400 200 - 8,000 /ul [facility] 03/24/2019 5:23 PM CDT 03/24/2019 5:26 PM CDT Narrative Resulting Agency Comment ER us Bren Penn SEARCH COORDINATOR LAB BLOOD ORDERABLES [place] [address], [facility] [phone] * TNI with LIPID PANEL (03/24/2019 5:23 PM CDT) Troponin I <0.300 0.000 - 0.300 ng/mL [facility] Comment: Reference using RUBÉN Chemiluminescence ? Negative: Repeat in 4-6 hours as indicated. Triglycerides 96 0 - 149 mg/dL [facility] Comment: National Lipid Association/NCEP Guidelines: ?? Normal ?< 150 mg/dL ?? Borderline high ?? 150-199 mg/dL ?? High ?200-499 mg/dL ?? Very High ? >=500 mg/dL Cholesterol 162 0 - 199 mg/dL [facility] Comment: National Lipid Association/NCEP Guidelines: Desirable ? < 200 mg/dL Borderline high: ??200-239 mg/dL High Risk: ?>=240 mg/dL HDL Cholesterol 58 mg/dL [facility] Comment: Reference Ranges: ? Males: >=40 mg/dL ? Females: >=50 mg/dL LDL Cholesterol, Calc 85 0 - 129 mg/dL [facility] Comment: National Lipid Association/NCEP Guidelines: ??Optimal ? < 100 mg/dL ??Near Optimal ?100-129 mg/dL ??Borderline high 130-159 mg/dL ??High ?>=160 mg/dL Cholesterol/HDL Ratio 2.8 [facility] Comment: Optimal ??< 3.5:1 High ? > 5:1 03/24/2019 5:23 PM CDT 03/24/2019 5:26 PM CDT Narrative Resulting Agency Comment ER us Bren Penn SEARCH COORDINATOR LAB BLOOD ORDERABLES [place] [address], [facility] [phone] * Comprehensive metabolic panel (03/24/2019 5:23 PM CDT) Sodium 139 135 - 145 mmol/L [facility] Potassium 3.8 3.3 - 5.1 mmol/L [facility] Chloride 102 96 - 108 mmol/L [facility] Carbon Dioxide 22 22 - 32 mmol/L [facility] Anion Gap 15 7 - 16 [facility] Glucose 95 70 - 100 mg/dL [facility] BUN 9 8 - 25 mg/dL [facility] Creatinine 0.6 0.5 - 1.1 mg/dL [facility] Comment: NOTE: Estimated GFR (Cockroft-Gault) will NOT be calculated unless patient Height and Weight were entered. Also, Kidney Disease Stage (GFR) and Estimated GFR (Cockroft-Gault) will NOT be calculated if Creatinine result is <0.2. Kidney Disease Stage >90 mL/MIN [facility] Comment: NOTE; ??The GFR is an estimated [...] on dialysis Est GFR (Cockcroft-G) 187 ml/MIN [facility] Comment: Estimated GFR(Cockroft-Gault)is used to calculate patient medication dosage Calcium 9.6 8.6 - 10.3 mg/dL [facility] Total Protein 7.8 6.4 - 8.3 g/dL [facility] Albumin 4.4 3.5 - 5.0 g/dL [facility] Globulin 3.4 2.3 - 3.5 gm/dL [facility] Albumin/Globulin Ratio 1.3 1.1 - 1.8 [facility] Total Bilirubin 0.3 0.0 - 1.2 mg/dL [facility] AST 19 0 - 32 U/L [facility] ALT 18 0 - 33 U/L [facility] Alkaline Phosphatase 61 35 - 104 U/L [facility] 03/24/2019 5:23 PM CDT 03/24/2019 5:26 PM CDT Narrative Resulting Agency Comment ER us Bren Penn SEARCH COORDINATOR LAB BLOOD ORDERABLES Final Re sult Performing Organization Address City/[facility]/ZIP Co de Phone Number [address] [phone] * ECG 12 lead (03/24/2019 5:07 PM CDT) Ventricular Rate EKG/Min 71 BPM [facility] Atrial Rate 71 BPM [facility] MN-Interval (MSEC) 154 ms [facility] QRS-Interval (MSEC) 86 ms [facility] QT-Interval (MSEC) 384 ms [facility] QTc 417 ms [facility] P [place] 41 degrees [facility] R [place] 14 degrees [facility] T [place] 5 degrees [facility] Diagnosis Normal sinus rhythm Normal ECG No previous ECGs available [facility] 03/24/2019 5:07 PM CDT 03/26/2019 12:14 PM CDT Narrative Resulting Agency Comment ALBIN us Bren Villarrealper SEARCH COORDINATOR ECG ORDERABLES Edited [facility] * CT Cervical Spine WO Contrast (03/24/2019 4:28 PM CDT) Anatomical Region Laterality Modality Spine N/A Computed Tomogra phy 03/24/2019 5:23 PM CDT Narrative 03/24/2019 5:26 PM CDT Patient Name: SALAZARLEONELARUN D ?Ordering Dr: Bren Penn CNP ?? D.O.B: 1980 ? Exam Date: 03/24/19 ?? 1628 ?? Age: 39 ?Sex: Female ? MR#: [id number] ?? Loc: ? RADIOLOGY REPORT ?? Order #[id number] ?? CT Scan ? CT C-Spine WO [...] T: ??03/24/2019 5:26 PM ? Report ID: [id number] ?? Reading Location: ??[id number] ? REPORT ELECTRONICALLY SIGNED IN OTHER VENDOR SYSTEM ?? Resulting Agency Comment E Procedure Note Liv Fleming MD - 03/24/2019 Patient Name: ARUN MONTOYA Dr: Bren Penn CNP D.O.B: 1980 Exam Date: 03/24/191627 Age: 39 Sex: Female MR#: [id number] Loc: RADIOLOGY REPORT Order #[id number] CT Scan CT C-Spine WO IV Contrast [...] Liv Fleming M.D. TB: TB Report ID: [id number] Reading Location: [place] [address] REPORT ELECTRONICALLY SIGNED IN OTHER VENDOR SYSTEM us Bren Penn SEARCH COORDINATOR IMG CT PROCEDURES Final Resul t * CT Head WO Contrast (03/24/2019 12:00 AM CDT) Anatomical Region Laterality Modality Head and Neck N/A Computed Tomogra phy 03/24/2019 6:00 PM CDT Narrative 03/24/2019 6:02 PM CDT Patient Name: SALAZARARUN ?Ordering Dr: Bren Penn A GENERAL CAR SUPERVISOR YARD ?? D.O.B: 1980 ? Exam Date: 03/24/19 ?? 0000 ?? Age: 39 ?Sex: Female ? MR#: [id number] ?? Loc: ? RADIOLOGY REPORT ?? Order #[id number] ?? CT Scan ? CT Head WO [...] T: ??03/24/2019 6:02 PM ? Report ID: [id number] ?? Reading Location: ??[id number] ? REPORT ELECTRONICALLY SIGNED IN OTHER VENDOR SYSTEM ?? Resulting Agency Comment E Procedure Note Florentino Pierson MD - 03/24/2019 Patient Name: ARUN MONTOYA Dr: Bren Penn CNP DNedraO.B: 1980 Exam Date: 03/24/19 0000 Age: 39 Sex: Female MR#: [id number] Loc: RADIOLOGY REPORT Order #[id number] CT Scan CT Head WO IV Contrast [...] Florentino Pierson M.D. CN: ANJALI Report ID: [id number] Reading Location: [place] [address] REPORT ELECTRONICALLY SIGNED IN OTHER VENDOR SYSTEM us Bren Penn SEARCH COORDINATOR IMG CT PROCEDURES Final Resul t documented in this encounter Visit Diagnoses Not on filedocumented in this encounter Care Teams Puff Ironer Relationship Specialty Start Date End Date No, Physician PCP - General 03/21/19 03/29/19 documented as of this encounter
--- OUTSIDE RECORDS SUMMARY | 2024-06-10 20:03 | XMS_ITS | Encounter Summary ---
Author Organization [facility] Medical Group Address [address] [address] Care Team Providers Care Burn Crew Member Name Role Phone Elle Acuna MD Primary Care Provider Reason for Referral * Diagnostic Imaging (Routine) - Closed Specialty Diagnoses / Procedures Referred By Contac t Referred To Contact Diagnoses Left leg pain Procedures XR Ankle Left 3 or More Views Elle Acuna MD Phone: tel: fax: [facility] [address] Referral ID Status Reason Start Date Expiration Date Visits Re quested Visits Authorized [id number] Closed 10/05/2019 04/15/2021 1 1 * Diagnostic Imaging (Routine) - Closed Specialty Diagnoses / Procedures Referred By Contac t Referred To Contact Diagnoses Left leg pain Procedures XR Tibia Fibula Left 2 Views Elle Acuna MD Phone: tel: fax: [facility] [address] Referral ID Status Reason Start Date Expiration Date Visits Re quested Visits Authorized [id number] Closed 10/05/2019 04/15/2021 1 1 Encounter Details Date Type Department Care Team (Late st Contact Info) Description 10/05/2019 8:00 AM CDT Office Visit [facility] [address] [place] [address] [place] [address] Elle Acuna MD [address] [place] [address] [place] [address] Atypical migraine (Primary Dx); Left leg pain; Essential hypertension; Morbid obesity with BMI of 45.0-49.9, adult ([facility]) Social History Tobacco Use Types [...] Morbid obesity with BMI of 45.0-49.9, adult ([facility]) Assessment & Plan: BMI Follow-up [...] documented as of this encounter Care Teams Burn Crew Member Relationship Specialty Start Date End Date Elle Acuna MD PCP - General Internal Medicine 03/30/19 documented as of this encounter
--- OUTSIDE RECORDS SUMMARY | 2024-06-10 20:03 | XMS_ITS | Encounter Summary ---
Author Organization [facility] Medical Group Address [address] [place] [address] Care Team Providers Care Gamer Name Role Phone Elle Acuna MD Primary Care Provider Encounter Details Date Type Department Care Team (Late st Contact Info) Description 08/08/2019 Telephone [facility] [address] [place] [address] Elle Acuna MD [address] [place] [address] [place] [address] Social [...] 09/06/19. Covered through August and September. Ref: [id number] GE FILTRATION OPERATOR documented in this encounter Plan of Treatment Not on file documented as of this encounter Visit Diagnoses Not on filedocumented in this encounter Care Teams Gamer Relationship Specialty Start Date End Date Elle Acuna MD PCP - General Internal Medicine 03/30/19 documented as of this encounter
--- OUTSIDE RECORDS SUMMARY | 2024-06-10 20:03 | XMS_ITS | Encounter Summary ---
Author Organization [facility] Healthcare Address [address] [place] [address] Care Team Providers Care Punch Card Operator Name Role Phone Elle Acuna MD [...] Expiration Date Visits Re quested Visits Authorized [id number] Closed 09/04/2019 03/15/2021 1 1 Encounter Details Date Type Department Care Team (Latest Contact Info) Description 09/08/2019 8:33 AM CDT - 09/08/2019 11:59 PM CDT Hospital Encounter [facility] Imaging [address] [place] [phone] Elle Acuna MD [address] [place] [address] [place] [address] Localized swelling of left lower extremity Discharge [...] extremity documented in this encounter Care Teams Punch Card Operator Relationship Specialty Start Date End Date Elle Acuna MD PCP - General Internal Medicine 03/30/19 documented as of this encounter
--- OUTSIDE RECORDS SUMMARY | 2024-06-10 20:03 | XMS_ITS | Encounter Summary ---
Author Organization [facility] Medical Group Address [address] [place] [address] Care Team Providers Care Fishing Hand Name Role Phone Elle Acuna MD Primary Care Provider Reason for Visit * Reason Onset Date Comments [facility] Medical Question 08/10/2019 Encounter Details Date Type Department Care Team (Late st Contact Info) Description 08/10/2019 Telephone [facility] [address] [place] [address] Elle Acuna MD [address] [place] [address] [place] [id number] Kal[facility] Medical Question Social History Tobacco Use [...] and has received notification from her pharmacy. EKEEPING CLEANER * Telephone Encounter - Elle Acuna MD - 08/10/2019 10:28 AM HOUSEKEEPING CLEANER Amoxicillin sent EKEEPING CLEANER * Telephone Encounter - Batsheva Salazar - 08/10/2019 8:20 AM CST General Medical Question/Miscellaneous-Sent Message: Caller's Concern: Patient wants to let Dr. Acuna that she is not feeling better after seeing her on 08.08.19. She still has a sore and swollen throat, clogged right ear and chills. Dr. Acuna mentioned calling in a prescription if she did not improve. Patient uses [facility]. Caller's Callback #: [phone] Did you relay expectation for processing (up to 24 hours)? Yes EKEEPING CLEANER documented in this encounter Plan of Treatment Not on file documented as of this encounter Visit Diagnoses Not on filedocumented in this encounter Care Teams Fishing Hand Relationship Specialty Start Date End Date Elle Acuna MD PCP - General Internal Medicine 03/30/19 documented as of this encounter
--- OUTSIDE RECORDS SUMMARY | 2024-06-10 20:03 | XMS_ITS | Encounter Summary ---
Author Organization [facility] Healthcare Address [address] [place] [address] Care Team Providers Care Teacher Resource Name Role Phone No, Physician Primary Care Provider [phone] Reason for Visit * Reason Comments Tingling Encounter Details Date Type Department Care Team (Late st Contact Info) Description 03/21/2019 4:12 PM CDT - 03/21/2019 6:29 PM CDT Emergency [facility] Emergency Department [address] [place] [address] Coleman Chong, DO [address] [facility] [address] [place], [place] [id number] Essential hypertension (Primary Dx); Atypical migraine Discharge [...] Care Everywhere. * Migraine Headache (Discharge Care) (Tunisian) * Hypertension, New (Begin Treatment) (Tunisian) documented in this encounter Medications at Time [...] out other areas of to suggest pneumonia [place] abdominal pain secondaryto UTI and or evidence [...] ??mL/min/1.73m2 *Relative to young adult level If -Czech multiply value by 1.16. Estimated glomerular filtration [...] Chong DO LAB BLOOD ORDERABLES Final Result [facility] [address] [facility] [place] [address] * (ABNORMAL) Differential, auto (03/21/2019 6:17 PM CDT) Neutrophil abs 10.2(H) 1.7 - 6.5 K/cumm [facility] Imm gran abs 0.0 0.0 - 0.1 K/cumm [facility] Lymphocyte abs 1.9 0.8 - 3.3 K/cumm [facility] Monocyte abs 0.7 0.2 - 0.8 K/cumm [facility] Eosinophil abs 0.0 0.0 - 0.5 K/cumm [facility] Basophil abs 0.0 0.0 - 0.1 K/cumm [facility] Neutrophil pct 79.3 % [facility] Comment: Interpretive Data Percent cell count [...] DO LAB BLOOD ORDERABLES Final [facility] [address] [facility] [place] [phone] * (ABNORMAL) Urinalysis reflex to microscopic and [...] for uric acid stone formation. Source: [employer]. Last revised 06-17-2017 Coleman Chong DO LAB MICROBIOLOGY - GENERAL ORDERABLES Final Result Performing Organization Address City/State/[facility] Phone Number [facility] [place] [address] [facility] [place] [address] * Troponin T (03/21/2019 6:17 PM CDT) [...] limit for troponin assay. ??Journal of the [place] College [employer] Cardiology 2012;60:1581-98. Current Interpretive Data Last Revised Date: 2018. Blood specimen (specimen) 03/21/2019 6:17 PM CDT 03/21/2019 6:34 PM CDT Coleman Chong DO LAB BLOOD ORDERABLES Final Result [facility] [address] [place] [address] * Lipase (03/21/2019 6:17 PM CDT) Lipase 30 10 - 99 Units/L [facility] Blood specimen (specimen) 03/21/2019 6:17 PM CDT 03/21/2019 6:34 PM CDT Coleman Chong DO LAB BLOOD ORDERABLES Final Result Performing Organization Address City/[facility]/ZIP Co de Phone Number [facility] [place] [address] [place] [address] * Comprehensive metabolic panel (03/21/2019 6:17 PM [...] [facility] Albumin 4.5 3.5 - 5.0 g/dL [facility] Alk phos 67 40 - 130 Units/L [facility] ALT 22 7 - 45 Units/L [facility] AST 24 10 - 45 Units/L [facility] Blood specimen (specimen) 03/21/2019 6:17 PM CDT 03/21/2019 6:34 PM CDT Coleman Chong DO LAB BLOOD ORDERABLES Final Result [facility] [address] [facility] [place] [phone] * (ABNORMAL) CBC with auto differential (03/21/2019 6:17 PM CDT) WBC 12.8(H) 3.8 - 9.9 K/cumm [facility] Hgb 14.7 11.9 - 15.5 g/dL [facility] Hct 42.9 35.6 - 45.5 % [facility] Plt 217 150 - 400 K/cumm [facility] MPV 10.5 9.1 - 12.3 fL [facility] RBC 4.85 3.90 - 5.20 M/cumm [facility] MCV 88.5 81.3 - 96.4 fL [facility] MCH 30.3 27.1 - 33.3 pg [facility] MCHC 34.3 32.3 - 35.7 g/dL [facility] RDW CV 12.7 11.1 - 14.9 % [facility] RDW SD 40.9 35.7 - 48.1 fL [facility] NRBC abs 0.00 0.00 - 0.01 K/cumm [facility] Blood specimen (specimen) 03/21/2019 6:17 PM CDT 03/21/2019 6:34 PM CDT Coleman Chong DO LAB BLOOD ORDERABLES Final Result [facility] [address] [facility] [place] [address] * POCT hCG, urine (03/21/2019 5:35 PM CDT) HCG, ur, POC Negative Lot Number [id number] QC Backgroud Clear Acceptable QC Control Line [...] * POCT glucose (03/21/2019 5:02 PM CDT) [facility] Glucose, POC 91 70 - 199 mg/dL [facility] Comment: Interpretive Data Glucose is assumed to be non-fasting. Fasting Glucose reference ranges are: 0 - 150 years: ??70 mg/dL - 99 mg/dL Current interpretive data was last revised on 2014. POC Performer [id number] [facility] POC Device Number [id number] [facility] Blood specimen (specimen) 03/21/2019 5:02 PM CDT 03/21/2019 5:02 PM CDT Coleman Chong DO LAB POCT ORDERABLES - DEVIC E Final Result [facility] [address] [place] [address] documented in this encounter Visit Diagnoses Diagnosis [...] 03/21/2019 documented in this encounter Care Teams Teacher Resource Relationship Specialty Start Date End Date No, Physician PCP - General 03/21/19 03/29/19 documented as of this encounter
--- OUTSIDE RECORDS SUMMARY | 2024-06-10 20:03 | XMS_ITS | Encounter Summary ---
Author Organization [facility] Medical Group Address [address] [place] [address] Care Team Providers Care Oncology Rn Name Role Phone Elle Acuna MD Primary Care Provider Encounter Details Date Type Department Care Team (Late st Contact Info) Description 09/04/2019 Orders Only [facility] [address] [facility] [facility] [address] [place] [phone] Elle Acuna MD [address] [place] [address] [place] [address] Localized [...] Primary documented in this encounter Care Teams Oncology Rn Relationship Specialty Start Date End Date Elle Acuna MD PCP - General Internal Medicine 03/30/19 documented as of this encounter
--- OUTSIDE RECORDS SUMMARY | 2024-06-10 20:03 | XMS_ITS | Encounter Summary ---
Author Organization [facility] Medical Group Address [address] [place] [address] Care Team Providers Care Supervisor Drawing Name Role Phone Elle Acuna MD Primary Care Provider Reason for Referral * Diagnostic Imaging (Routine) - Closed Specialty Diagnoses / Procedures Referred By Contac t Referred To Contact Radiology Diagnoses Paresthesias/numbness Procedures MRI Brain W WO Contrast Elle Acuna MD Phone: tel: fax: [facility] [address] [place] [address] Referral ID Status Reason Start Date Expiration Date Visits Re quested Visits Authorized [id number] Closed 03/30/2019 10/08/2020 1 1 Reason for Visit * Reason Comments Establish Care Encounter Details Date Type Department Care Team (Late st Contact Info) Description 03/30/2019 8:15 AM CDT Office Visit [facility] [address] [place] [address] Elle Acuna MD [address] [place] [address] [place] [address] Paresthesias/numbness [...] her symptoms again and presented to the [facility] ER. Another head CT was normal and [...] file Gets together: Not on file Attends muslim service: Not on file Active member of [...] Morbid obesity with BMI of 45.0-49.9, adult ([facility]) Assessment & Plan: BMI Follow-up [...] * Assessment & Plan Note - Santos Rmoano MA - 03/30/2019 8:40 AM CDTAssociated Problem(s): Morbid obesity with BMI of 50.0-59.9, adult (HCC) BMI Follow-up includes: nutrition counseling, exercise counseling and education provided. documented in this encounter Plan of Treatment Not on file documented as of this encounter Results * MRI Brain W WO Contrast (04/19/2019 3:47 PM ADVANCED PRACTICE REGISTERED NURSE) Anatomical Region Laterality Modality Head and Neck N/A Magnetic Resonan ce 04/19/2019 4:54 PM ADVANCED PRACTICE REGISTERED NURSE Impressions 04/20/2019 8:35 AM ADVANCED PRACTICE REGISTERED NURSE Normal MRI of the brain. Dictated by: Johnathon Bell M.D. The radiology attending physician has personally reviewed this study, and had reviewed and/or edited this written report and agrees with it. Electronically signed by: Dalton Mobley M.D. Narrative 04/20/2019 8:35 AM ADVANCED PRACTICE REGISTERED NURSE EXAMINATION: Magnetic resonance imaging (MRI) of the [...] daily added in this encounter Care Teams Supervisor Drawing Relationship Specialty Start Date End Date Elle Acuna MD PCP - General Internal Medicine 03/30/19 documented as of this encounter
--- OUTSIDE RECORDS SUMMARY | 2024-06-10 20:03 | XMS_ITS | Encounter Summary ---
Author Organization [facility] Address [address] [place] [address] Care Team Providers Care Dietary Aide Name Role Phone Elle Acuna MD Primary Care Provider Reason for Referral * Diagnostic Imaging (Routine) - Closed Specialty Diagnoses / Procedures Referred By Contac t Referred To Contact Diagnoses Encounter for screening mammogram for malignant neoplasm of breast Procedures Screening Mammogram Bilateral W Elle Valente MD Phone: tel: fax: [facility] [address] [place] [phone] Referral ID Status Reason Start Date Expiration Date Visits Re quested Visits Authorized [id number] Closed 09/02/2020 10/02/2021 1 1 Reason for Visit * Reason Comments Preventative Care Encounter Details Date Type Department Care Team (Late st Contact Info) Description 09/02/2020 10:30 AM CDT Office Visit [facility] [address] [facility] [address] [place] [phone] Elle Acuna MD [address] [place] [address] [place] [phone] Encounter for preventive care (Primary Dx); Essential hypertension; Atypical migraine; Paresthesias; Blood glucose elevated; Encounter for screening mammogram for malignant neoplasm of breast; Morbid obesity with BMI of 50.0-59.9, adult ([facility]) Social History Tobacco Use Types [...] Morbid obesity with BMI of 50.0-59.9, adult ([facility]) Assessment & Plan: BMI Follow-up [...] Morbid obesity with BMI of 50.0-59.9, adult ([facility]) BMI Follow-up includes: nutrition counseling, [...] Morbid obesity with BMI of 50.0-59.9, adult ([facility]/HCC) HEMOGLOBIN A1C Routine 09/02/2020 11:10 AM CDT [...] ORDERABLES F inal Result Performing Organization Address [facility]/ZIP Co de Phone Number [facility] [address] [place] [address] * Iron profile w/ IBC (09/02/2020 11:10 AM CDT) Iron 84 40 - 190 mcg/dL [facility] TIBC 424 250 - 450 mcg/dL (calc) [facility] Iron saturation 20 16 - 45 % (calc) [facility] Blood specimen (specimen) 09/02/2020 11:10 AM CDT 09/03/2020 3:20 AM CDT Elle Acuna MD LAB BLOOD ORDERABLES F inal Result Performing Organization Address [facility] Co de Phone Number [facility] [facility] [address] [place] [address] * Vitamin B12 (09/02/2020 11:10 AM CDT) Pathologist [facility] Vitamin B12 424 200 - 1,100 pg/mL [facility] Blood specimen (specimen) 09/02/2020 11:10 AM CDT 09/03/2020 3:20 AM CDT Elle Acuna MD LAB BLOOD ORDERABLES F inal Result Performing Organization Address [facility] Co de Phone Number [facility] [address] [place] [address] * (ABNORMAL) Vitamin D 25 hydroxy (09/02/2020 [...] D, (D2,D3), LC/MS/MS is recommended: order code 22729 (patients >2yrs). See Note 1 Note 1 For additional information, please refer to http://education.FOODit/faq/FVS038 (This link is being provided for informational/ educational purposes only.) Blood specimen (specimen) 09/02/2020 11:10 AM CDT 09/03/2020 3:20 AM CDT us Elle Acuna MD LAB BLOOD ORDERABLES F inal Result [facility] [facility] [address] [place] [address] * TSH reflex to free T4 (09/02/2020 11:10 AM CDT) TSH 1.34 mIU/L [facility] Comment: ?Reference Range ?> or = 20 Years ??0.40-4.50 ? Ranges ?First trimester ?0.26-2.66 ?Second trimester ?? 0.55-2.73 ?Third trimester ?0.43-2.91 Blood specimen (specimen) 09/02/2020 11:10 AM CDT 09/03/2020 3:20 AM CDT Elle Acuna MD LAB BLOOD ORDERABLES F inal Result Performing Organization Address [facility]/ZIP Co de Phone Number [facility] [address] [place] [address] * (ABNORMAL) Lipid panel (09/02/2020 11:10 AM CDT) Pathologist [facility] Cholesterol 197 <200 mg/dL [facility] [...] LDL-C. Gulshan SS et al. SERA. 2013;310(19): 7450-5482 (http://education.FOODit/faq/EBU963) Chol/HDL ratio 2.7 <5.0 (calc) [facility] [...] ORDERABLES F inal Result Performing Organization Address [facility]/ZIP Co de Phone Number [facility] [address] [place] [address] * Comprehensive metabolic panel (09/02/2020 11:10 AM CDT) Glucose 92 65 - 99 mg/dL [facility] Comment: ? Fasting reference interval BUN 13 7 - 25 mg/dL [facility] Creatinine 0.79 0.50 - 1.10 mg/dL [facility] eGFR NON-AFR. BURMESE 94 > OR = 60 mL/min/1. 73m2 [facility] EGFR 109 > OR = 60 mL/min/1. 73m2 [facility] BUN/creat ratio NOT APPLICABLE 6 - 22 (calc) [facility] Sodium 139 135 - 146 mmol/L [facility] Potassium, pl 4.1 3.5 - 5.3 mmol/L [facility] Chloride 109 98 - 110 mmol/L [facility] CO2 21 20 - 32 mmol/L [facility] Calcium 9.6 8.6 - 10.2 mg/dL [facility] Protein, sr 7.0 6.1 - 8.1 g/dL [facility] Albumin 4.0 3.6 - 5.1 g/dL [facility] GLOBULIN 3.0 1.9 - 3.7 g/dL (calc) [facility] Alb/glob ratio 1.3 1.0 - 2.5 (calc) [facility] Bilirubin, total 0.4 0.2 - 1.2 mg/dL [facility] Alk phos 51 31 - 125 U/L [facility] AST 16 10 - 30 U/L [facility] ALT (SGPT) 16 6 - 29 U/L [facility] Blood specimen (specimen) 09/02/2020 11:10 AM CDT 09/03/2020 3:20 AM CDT Elle Acuna MD LAB BLOOD ORDERABLES F inal Result [facility] [address] [place] [address] * CBC with auto differential (09/02/2020 11:10 [...] MD LAB BLOOD ORDERABLES F inal Result [facility] [address] [place] [address] * Hemoglobin A1c (09/02/2020 11:10 AM CDT) Hgb A1C 4.9 <5.7 % of total Hgb [facility] Comment: For the purpose of screening for the presence of diabetes: <5.7% ? Consistent with the absence of diabetes 5.7-6.4% ?Consistent with increased risk for diabetes ?(prediabetes) > or =6.5% ??Consistent with diabetes This assay result is consistent with a decreased risk of diabetes. Currently, no consensus exists regarding use of hemoglobin A1c for diagnosis of diabetes in children. According to [place] Diabetes Association (ADA) guidelines, hemoglobin A1c <7.0% represents optimal control in non- diabetic patients. Different metrics may apply to specific patient populations. Standards of Medical Care in Diabetes(ADA). ?? Blood specimen (specimen) 09/02/2020 11:10 AM CDT 09/03/2020 3:20 AM CDT Elle Acuna MD LAB BLOOD ORDERABLES F inal Result [facility] [address] [place] [address] documented in this encounter Visit Diagnoses Diagnosis [...] breast documented in this encounter Care Teams Dietary Aide Relationship Specialty Start Date End Date Elle Acuna MD PCP - General Internal Medicine 03/30/19 documented as of this encounter
--- OUTSIDE RECORDS SUMMARY | 2024-06-10 20:03 | XMS_ITS | Encounter Summary ---
Author Organization [facility] Healthcare Address [address] [place] [address] Care Team Providers Care Service Cleaner Name Role Phone Elle Acuna MD Primary Care Provider Reason for Referral * Diagnostic Imaging (Routine) - Closed Specialty Diagnoses / Procedures Referred By Abebe saldivar Referred To Contact Radiology Diagnoses Paresthesias/numbness Procedures MRI Brain W WO Contrast Elle Acuna MD Phone: tel: fax: [place] [address] [place] [phone] Referral ID Status Reason Start Date Expiration Date Visits Re quested Visits Authorized [id number] Closed 03/30/2019 10/08/2020 1 1 TRICAL SYSTEM SPECIALIST Reason for Visit * Diagnostic Imaging (Routine) - Closed Specialty Diagnoses / Procedures Referred By Abebe saldivar Referred To Contact Radiology Diagnoses Paresthesias/numbness Procedures MRI Brain W WO Contrast Elle Acuna MD Phone: tel: fax: [place] [address] [place] [phone] Referral ID Status Reason Start Date Expiration Date Visits Re quested Visits Authorized [id number] Closed 03/30/2019 10/08/2020 1 1 Encounter Details Date Type Department Care Team (Latest Contact Info) Description 04/19/2019 2:50 PM ELECTRICAL SYSTEM SPECIALIST - 04/19/2019 11:59 PM ELECTRICAL SYSTEM SPECIALIST Hospital Encounter [facility] [address] [place] [phone] Elle Acuna MD [address] [place] [place] [address] Paresthesias/numbne ss Discharge Disposition: Discharge to home [...] Read Routine (OP Routine) 04/19/2019 3:47 PM ELECTRICAL SYSTEM SPECIALIST Paresthesias/numbn ess documented in this encounter Results * MRI Brain W WO Contrast (04/19/2019 3:47 PM ELECTRICAL SYSTEM SPECIALIST) Anatomical Region Laterality Modality Head and Neck N/A Magnetic Resonan ce 04/19/2019 4:54 PM ELECTRICAL SYSTEM SPECIALIST Impressions 04/20/2019 8:35 AM ELECTRICAL SYSTEM SPECIALIST Normal MRI of the brain. Dictated by: Johnathon Bell M.D. The radiology attending physician has personally reviewed this study, and had reviewed and/or edited this written report and agrees with it. Electronically signed by: Dalton Mobley M.D. Narrative 04/20/2019 8:35 AM ELECTRICAL SYSTEM SPECIALIST EXAMINATION: Magnetic resonance imaging (MRI) of the [...] For 1 dose Given 04/19/2019 3:29 PM ELECTRICAL SYSTEM SPECIALIST 20 mL sodium chloride 0.9% flush 50 mL 50 mL, intravenous, As needed, line care, Starting on Wed04/19/19 at 1529 Given 04/19/2019 3:30 PM ELECTRICAL SYSTEM SPECIALIST 50 mL documented in this encounter Care Teams Service Cleaner Relationship Specialty Start Date End Date Elle Acuna MD PCP - General Internal Medicine 03/30/19 documented as of this encounter
--- OUTSIDE RECORDS SUMMARY | 2024-06-10 20:03 | XMS_ITS | Encounter Summary ---
Author Organization [facility] Care Team Providers Care Men'S Designer Name Role Phone Elle Acuna MD [...] on filedocumented in this encounter Care Teams Men'S Designer Relationship Specialty Start Date End Date Elle Acuna MD PCP - General Internal Medicine 03/30/19 documented as of this encounter
--- OUTSIDE RECORDS SUMMARY | 2024-06-10 20:03 | XMS_ITS | Encounter Summary ---
Author Organization [facility] Address [address] [place] [address] Care Team Providers Care Puppy Walker Name Role Phone Elle Acuna MD Primary Care Provider Encounter Details Date Type Department Care Team (Late st Contact Info) Description 07/31/2020 Orders Only [facility] [address] [place] [address] Elle Acuna MD [address] [place] [address] Social History Tobacco Use Types Packs/Day Years [...] on filedocumented in this encounter Care Teams Puppy Walker Relationship Specialty Start Date End Date Elle Acuna MD PCP - General Internal Medicine 03/30/19 documented as of this encounter
--- OUTSIDE RECORDS SUMMARY | 2024-06-10 20:03 | XMS_ITS | Encounter Summary ---
Author Organization [facility] Address [address] [place] [address] Care Team Providers Care Energy Director Name Role Phone Elle Acuna MD Primary Care Provider Reason for Visit * Reason Comments Fever 3x days Diarrhea Generalized Body Aches Encounter Details Date Type Department Care Team (Late st Contact Info) Description 08/07/2019 1:45 PM HISTOLOGY SUPERVISOR Office Visit [facility] [address] [place] [phone] Elle Acuna MD [address] [place] [address] [place] [address] Fever, unspecified fever cause (Primary Dx); Morbid obesity with BMI of 45.0-49.9, adult ([facility]) Social History Tobacco Use Types Packs/Day Years [...] Comments Blood Pressure 144/80 08/07/2019 1:39 PM HISTOLOGY SUPERVISOR Pulse 106 08/07/2019 1:39 PM HISTOLOGY SUPERVISOR Temperature 36.9 ??C (98.4 ??F) 08/07/2019 1:39 PM CS T Respiratory Rate - - Oxygen Saturation 98% 08/07/2019 1:39 PM HISTOLOGY SUPERVISOR Inhaled Oxygen Concentration - - Weight 140.6 kg (310 lb) 08/07/2019 1:39 PM HISTOLOGY SUPERVISOR Height 172.7 cm (5' 8 ) 08/07/2019 1:39 PM HISTOLOGY SUPERVISOR Body Mass Index 47.14 08/07/2019 1:39 PM HISTOLOGY SUPERVISOR documented in this encounter Progress Notes * [...] Morbid obesity with BMI of 45.0-49.9, adult ([facility]) Assessment & Plan: BMI Follow-up includes: nutrition counseling, exercise counseling and education provided. OLOGY SUPERVISOR documented in this encounter Miscellaneous Notes * Assessment & Plan Note - Elle Acuna MD - 08/07/2019 2:00 PM HISTOLOGY SUPERVISOR Associated Problem(s): Fever (Resolved 08/25/2019) Likely viral illness given constellation of symptoms including respiratory and GI symptosm Recommend fluids, rest, bland diet Call if no improvement or symptoms worsen OLOGY SUPERVISOR * Assessment & Plan Note - Santos Romano MA - 08/07/2019 1:42 PM CSTAssociated Problem(s): Morbid obesity with BMI of 50.0-59.9, adult ([facility]) BMI Follow-up includes: nutrition counseling, exercise counseling and education provided. OLOGY SUPERVISOR documented in this encounter Plan of Treatment Not on file documented as of this encounter Procedures Procedure Name Priority Date/Time Associated Diagnosis Comments POCT INFLUENZA A/B Routine 08/07/2019 2: 22 PM HISTOLOGY SUPERVISOR Fever, unspecified fever cause documented in this encounter Results * POCT influenza A/B (08/07/2019 2:22 PM HISTOLOGY SUPERVISOR) Rapid Influenza A Ag Negative Negative, Invalid Rapid Influenza B Ag Negative Negative, Invalid Nasal 08/07/2019 2:22 PM HISTOLOGY SUPERVISOR Elle Acuna MD POINT OF CARE TEST [...] 10/05/2019 added in this encounter Care Teams Energy Director Relationship Specialty Start Date End Date Elle Acuna MD PCP - General Internal Medicine 03/30/19 documented as of this encounter
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
--- OUTSIDE RECORDS SUMMARY | 2024-06-10 20:03 | XMS_ITS | Encounter Summary ---
Author Organization [facility] Care Team Providers Care Elementary School Social Worker Name Role Phone Elle Acuna MD [...] on filedocumented in this encounter Care Teams Elementary [employer] Social Worker Relationship Specialty Start Date End Date Elle Acuna MD PCP - General Internal Medicine 03/30/19 documented as of this encounter
--- OUTSIDE RECORDS SUMMARY | 2024-06-10 20:03 | XMS_ITS | Encounter Summary ---
Author Organization [facility] Healthcare Address [address] [place] [address] Care Team Providers Care Drafting Engineer Name Role Phone Elle Acuna MD Primary Care Provider Encounter Details Date Type Department Care Team (Late st Contact Info) Description 02/26/2020 Patient Self-Triage [facility] Health[facility]/ Physicians [address] [place] [address] Mycmindyt, Generic Provider [address] [place], [place] [phone] Social History Tobacco Use Types Packs/Day Years [...] on filedocumented in this encounter Care Teams Drafting Engineer Relationship Specialty Start Date End Date Elle Acuna MD PCP - General Internal Medicine 03/30/19 documented as of this encounter
--- OUTSIDE RECORDS SUMMARY | 2024-06-10 20:03 | XMS_ITS | Encounter Summary ---
Author Organization [facility] Healthcare Address [address] [place] [address] Care Team Providers Care Environmental Aide Name Role Phone Elle Acuna MD Primary Care Provider Encounter Details Date Type Department Care Team (Late st Contact Info) Description 02/26/2020 Patient Self-Triage [facility]/ Physicians [address] [place] [address] Mycmindyt, Generic Provider [address] [place], [place] [phone] Social History Tobacco Use Types Packs/Day Years [...] on filedocumented in this encounter Care Teams Environmental Aide Relationship Specialty Start Date End Date Elle Acuna MD PCP - General Internal Medicine 03/30/19 documented as of this encounter
--- OUTSIDE RECORDS SUMMARY | 2024-06-10 20:03 | XMS_ITS | Encounter Summary ---
Author Organization [facility] Address [address] [place] [address] Care Team Providers Care Alignment Mechanic Name Role Phone Elle cAuna MD Primary Care Provider Encounter Details Date Type Department Care Team (Late st Contact Info) Description 03/30/2019 Telephone [facility] [address] [place] [phone] Elle Acuna MD [address] [place] [place] [address] Social [...] 8:25 AM CDT Spoke to Renu @ [facility]. Pt is currently active. Effective as of 06/07/2017 documented in this encounter Plan of Treatment Not on file documented as of this encounter Visit Diagnoses Not on filedocumented in this encounter Care Teams Alignment Mechanic Relationship Specialty Start Date End Date Elle Acuna MD PCP - General Internal Medicine 03/30/19 documented as of this encounter
--- OUTSIDE RECORDS SUMMARY | 2024-06-10 20:03 | XMS_ITS | Encounter Summary ---
Author Organization [facility] Medical Group Address [address] [place] [address] Care Team Providers Care Route Vending Machine Servicer Name Role Phone Elle Acuna MD Primary Care Provider Encounter Details Date Type Department Care Team (Late st Contact Info) Description 07/06/2019 Telephone [facility] [address] [place] [phone] Elle Acuna MD [address] [place] [address] Social History Tobacco Use Types Packs/Day [...] CST Called [employer] to verify eligibility - [phone] - option 3 -spoke to Gabriela - active month to monthat least to 08/05/2019. DING CONSTRUCTION TEACHER documented in this encounter Plan of Treatment Not on file documented as of this encounter Visit Diagnoses Not on filedocumented in this encounter Care Teams Route Vending Machine Servicer Relationship Specialty Start Date End Date Elle Acuna MD PCP - General Internal Medicine 03/30/19 documented as of this encounter
--- OUTSIDE RECORDS SUMMARY | 2024-06-10 20:03 | XMS_ITS | Encounter Summary ---
Author Organization [facility] Healthcare Address [address] [place] [address] Care Team Providers Care Corporate Training Manager Name Role Phone Elle Acuna MD Primary Care Provider Reason for Referral * Diagnostic Imaging (Routine) - Closed Specialty Diagnoses / Procedures Referred By Contac t Referred To Contact Diagnoses Left leg pain Procedures XR Tibia Fibula Left 2 Views Elle Acuna MD Phone: tel: fax: [facility] [address] Referral ID Status Reason Start Date Expiration Date Visits Re quested Visits Authorized [id number] Closed 10/05/2019 04/15/2021 1 1 * Diagnostic Imaging (Routine) - Closed Specialty Diagnoses / Procedures Referred By Contac t Referred To Contact Diagnoses Left leg pain Procedures XR Ankle Left 3 or More Views Elle Acuna MD Phone: tel: fax: [facility] [address] Referral ID Status Reason Start Date Expiration Date Visits Re quested Visits Authorized [id number] Closed 10/05/2019 04/15/2021 1 1 Reason for Visit * Diagnostic Imaging (Routine) - Closed Specialty Diagnoses / Procedures Referred By Contac t Referred To Contact Diagnoses Left leg pain Procedures XR Ankle Left 3 or More Views Elle Acuna MD Phone: tel: fax: [facility] [address] Referral ID Status Reason Start Date Expiration Date Visits Re quested Visits Authorized [id number] Closed 10/05/2019 04/15/2021 1 1 Encounter Details Date Type Department Care Team (Latest Contact Info) Description 10/05/2019 8:36 AM CDT - 10/05/2019 11:59 PM CDT Hospital Encounter [facility] - [address] [place] [id number] Elle Acuna MD [address] [place] [address] Left leg pain Discharge Disposition: Discharge to [...] limb documented in this encounter Care Teams Corporate Training Manager Relationship Specialty Start Date End Date Elle Acuna MD PCP - General Internal Medicine 03/30/19 documented as of this encounter
--- OUTSIDE RECORDS SUMMARY | 2024-06-10 20:03 | XMS_ITS | Encounter Summary ---
Author Organization [facility] Facility Care Team Providers Care Photographer Finish Name Role Phone No, Physician Primary Care Provider [phone] Encounter Details Date Type Department Care Team [...] on filedocumented in this encounter Care Teams Photographer Finish Relationship Specialty Start Date End Date Charisse Physician PCP - General 03/21/19 03/29/19 documented as of this encounter
--- OUTSIDE RECORDS SUMMARY | 2024-06-10 20:03 | XMS_ITS | Encounter Summary ---
Author Organization [facility] Facility Care Team Providers Care Ice Handler Name Role Phone Elle Acuna MD Primary [...] on filedocumented in this encounter Care Teams Ice Handler Relationship Specialty Start Date End Date Elle Acuna MD PCP - General Internal Medicine 03/30/19 documented as of this encounter
--- OUTSIDE RECORDS SUMMARY | 2024-06-10 20:03 | XMS_ITS | Encounter Summary ---
Author Organization [facility] Address [address] [place] [address] Care Team Providers Care Manager Hydraulic Name Role Phone Elle Acuna MD Primary Care Provider Reason for Visit * Reason Comments Numbness Influenza Exposure Encounter Details Date Type Department Care Team (Late st Contact Info) Description 07/07/2019 8:00 AM PNEUMATIC TESTER Office Visit [facility] [address] [place] [phone] Elle Acuna MD [address] [place] [place] [address] Atypical migraine (Primary Dx); Essential hypertension; Encounter for initial prescription of vaginal ring hormonal contraceptive; Morbid obesity with BMI of 45.0-49.9, adult ([facility]) Social History Tobacco Use Types Packs/Day Years [...] Comments Blood Pressure 112/74 07/07/2019 8:12 AM PNEUMATIC TESTER Pulse 80 07/07/2019 8:12 AM PNEUMATIC TESTER Temperature 37.1 ??C (98.8 ??F) 07/07/2019 8:12 AM CS T Respiratory Rate - - Oxygen Saturation 98% 07/07/2019 8:12 AM PNEUMATIC TESTER Inhaled Oxygen Concentration - - Weight 141.5 kg (312 lb) 07/07/2019 8:12 AM PNEUMATIC TESTER Height 172.7 cm (5' 8 ) 07/07/2019 8:12 AM PNEUMATIC TESTER Body Mass Index 47.44 07/07/2019 8:12 AM PNEUMATIC TESTER documented in this encounter Ordered Prescriptions Prescription [...] Acuna MD - 07/07/2019 8:00 AM CST Ivteh Montoya 1980 Chief Complaint Patient presents with [...] Morbid obesity with BMI of 45.0-49.9, adult ([facility]) Assessment & Plan: BMI Follow-up includes: nutrition [...] tablet (50 mg total) by mouth daily MATIC TESTER documented in this encounter Miscellaneous Notes * Assessment & Plan Note - Elle Acuna MD - 07/07/2019 8:37 AM PNEUMATIC TESTER Associated Problem(s): Essential hypertension Improved, as she has not exactly certain what she has done to see this improvement Encouraged lifestyle modifications Continue to monitor MATIC TESTER MATIC TESTER * Assessment & Plan Note - Elle Acuna MD - 07/07/2019 8:33 AM PNEUMATIC TESTER Associated Problem(s): Atypical migraine Start Topamax as symptoms are debilitating when they occur Sumatriptan PRN Follow up 3 monts MATIC TESTER * Assessment & Plan Note - Elle Acuna MD - 07/07/2019 8:32 AM PNEUMATIC TESTER Associated Problem(s): Encounter for initial prescription of vaginal ring hormonal contraceptive (Resolved 09/01/2020) Last sexually active 5 days ago, took morning after pill Urine hcg today Patient will wait to start Nuvaring until after next period MATIC TESTER * Assessment & Plan Note - Santos Romano MA - 07/07/2019 8:14 AM CSTAssociated Problem(s): Morbid obesity with BMI of 50.0-59.9, adult (HCC) BMI Follow-up includes: nutrition counseling, exercise counseling and education provided. Hopeful that Topamax will result in some weight loss for her as well as the primary goal of decreasing her migraine symptoms MATIC TESTER MATIC TESTER documented in this encounter Plan of Treatment Not on file documented as of this encounter Procedures Procedure Name Priority Date/Time Associated Diagnosis Comments POCT HCG, URINE Routine 07/07/2019 8:58 AM PNEUMATIC TESTER Encounter for initial prescription of vaginal ring hormonal contraceptive documented in this encounter Results * POCT hCG, urine (07/07/2019 8:58 AM PNEUMATIC TESTER) HCG, ur, POC Negative Lot Number [id number] QC Backgroud Clear Acceptable QC Control Line Acceptable Urine 07/07/2019 8:58 AM PNEUMATIC TESTER Elle Acuna MD POINT OF CARE TEST ORD ERABLES Final Result documented in this encounter Visit Diagnoses Diagnosis Atypical migraine- Primary Other forms of migraine, without mention of intractable migraine without mention of status migrainosus Essential hypertension Unspecified essential hypertension Encounter for initial prescription of vaginal ring hormonal contraceptive Morbid obesity with BMI of 45.0-49.9, adult (HCC) documented in this encounter Care Teams Manager Hydraulic Relationship Specialty Start Date End Date Elle Acuna MD PCP - General Internal Medicine 03/30/19 documented as of this encounter
--- OUTSIDE RECORDS SUMMARY | 2024-06-10 20:03 | XMS_ITS | Encounter Summary ---
Author Organization [facility] Facility Care Team Providers Care Pilates Coordinator Name Role Phone Elle Acuna MD Primary [...] on filedocumented in this encounter Care Teams Pilates Coordinator Relationship Specialty Start Date End Date Elle Acuna MD PCP - General Internal Medicine 03/30/19 documented as of this encounter
--- OUTSIDE RECORDS SUMMARY | 2024-06-10 20:03 | XMS_ITS | Encounter Summary ---
Author Organization [facility] Address [address] [place] [address] Care Team Providers Care Ict Support And Test Engineers Name Role Phone Elle Acuna MD Primary Care Provider Encounter Details Date Type Department Care Team (Late st Contact Info) Description 04/20/2019 Telephone [facility] [address] [place] [phone] Elle Acuna MD [address] [place] [place] [address] Social [...] Patient will keep follow up in June. ONAL INJURY LITIGATION [place] documented in this encounter Plan of Treatment Not on file documented as of this encounter Visit Diagnoses Not on filedocumented in this encounter Care Teams Ict Support And Test Engineers Relationship Specialty Start Date End Date Elle Acuna MD PCP - General Internal Medicine 03/30/19 documented as of this encounter
--- OUTSIDE RECORDS SUMMARY | 2024-06-10 20:03 | XMS_ITS | Encounter Summary ---
Author Organization [facility] Address [address] [place] [address] Care Team Providers Care Ironworker Machine Operator Name Role Phone Elle Acuna MD Primary Care Provider Encounter Details Date Type Department Care Team (Late st Contact Info) Description 10/05/2019 Telephone [facility] [address] [place] [phone] Elle Acuna MD [address] [place] [address] Social History Tobacco Use Types Packs/Day [...] 8:21 AM CDT Spoke to Ama @ [facility]. Pt is currently active as of 09/05/2014 and eligible through October 2019. documented in this encounter Plan of Treatment Not on file documented as of this encounter Visit Diagnoses Not on filedocumented in this encounter Care Teams Ironworker Machine Operator Relationship Specialty Start Date End Date Elle Acuna MD PCP - General Internal Medicine 03/30/19 documented as of this encounter
== END 2024-06-03 14:06 | disposition home or self-care (01) ==
PROVIDERS: Emergency Provider Nurse Practitioner
DX: R09.82 Postnasal drip (principal); J06.9 Acute upper respiratory infection, unspecified; Z20.822 Contact with and (suspected) exposure to COVID-19
CPT/HCPCS: 87081; 87426; 87804; 87880; 99213; G0463

== ENCOUNTER 2024-10-17 10:15 | Outpatient (RCR) | payer BC, SELFPAY ==
--- NOTE | 2024-09-12 09:59 | OPREHPOC ---
Outpatient Therapy Plan of Care This is a Multidisciplinary Plan of Care that may contain components documented by all disciplines (PT, OT, and ST.) PT Problem 1 PT Problem #1 Knowledge Deficit PT Goal 1 Goal / Goal Update 1. Pt to be IND with issued HEP Target Visit 4 PT Problem 2 PT Problem #2 Pain PT Goal 1 Goal / Goal Update 1. Pt to be able to wean off pain medication without pain greater than 3/10. PT Problem 3 PT Problem #3 Impaired Range of Motion PT Goal 1 Goal / Goal Update 1. Pt to increase ankle dorsiflexion to 10 deg with knee extension PT Problem 4 PT Problem #4 Impaired Range of Motion PT Goal 1 Goal / Goal Update 1. pt to demonstrate 5 full range single leg heel raises to demonstrate increased strength for push off
--- NOTE | 2024-09-12 09:59 | PTOPEVAL1 ---
Assessment and note entered by Gracie Vazquez, PT, DPT Evaluation Information Assessment Status Evaluation Diagnosis sidney foot pain Other ICD-10 Condition Codes ( [id number], M7732, Q61749 PT) Subjective Information Pt reports a couple of months ago that she was having some L Achilles pain, and much more mild on the R. States she has Achilles tendonitis with a bone fragment. States she has some dr. Huber insert she will put in her shoes. States she is limited to 10 mins of walking at a time. Pt has been on Meloxicam for the last 4 months, plans to stay on it until her foot/ankle is better. Has no pain at rest and zero pain since she has been on Meloxicam. Pt has a desk job. Reported Pain Level Pain Score 0: Self Report Assessment PT Clinical Summary Pt presents to therapy today for her initial evaluation with a diagnosis of L Achilles tendonitis. Today she demonstrate decreased ankle plantarflexion strength and hip abduction strength sidney. She is also lacking significant ankle dorsiflexion ROM on the L ankle. Her limited ROM and strength is shortening her stride during ambulation. Skilled therapy services are indicated to address the deficits noted above, to decrease reliance on medication, and to return to PLOF. Plan of Care Interventions Electrical Stimulation,Gait Training,Hot Pack/Cold Pack,Manual Therapy,Neuro Re-education,Patient/ Caregiver Education,Therapeutic Activities, Therapeutic Exercise,Ultrasound PT Services Indicated Yes Treatment Frequency and 2x/wk for 8 visits Duration These treatments will address the objective and functional deficits as defined above. The patient will be advanced safely and appropriately in order for the patient to progress towards his/her prior level of function. Additional exercises will be introduced and as well as a comprehensive home exercise program upon discharge, if needed, ?to ensure carryover of functional gains achieved in the clinic. This treatment plan has been reviewed and agreement upon by the patient.
--- NOTE | 2024-10-17 11:42 | OPREHPOC ---
Outpatient Therapy Plan of Care This is a Multidisciplinary Plan of Care that may contain components documented by all disciplines (PT, OT, and ST.) PT Problem 1 PT Problem #1 Knowledge Deficit PT Goal 1 Goal / Goal Update 1. Pt to be IND with issued HEP Target Visit 4 Progress Met PT Problem 2 PT Problem #2 Pain PT Goal 1 Goal / Goal Update 1. Pt to be able to wean off pain medication without pain greater than 3/10. Progress Met PT Problem 3 PT Problem #3 Impaired Range of Motion PT Goal 1 Goal / Goal Update 1. Pt to increase ankle dorsiflexion to 10 deg with knee extension Progress Met PT Problem 4 PT Problem #4 Impaired Range of Motion PT Goal 1 Goal / Goal Update 1. pt to demonstrate 5 full range single leg heel raises to demonstrate increased strength for push off Progress Met
--- NOTE | 2024-10-17 11:42 | PTOPDC ---
Assessment and note entered by Colten Roe, PT Evaluation Information Assessment Status Discharge Diagnosis sidney foot pain Other ICD-10 Condition Codes ( [id number], M7732, Q24316 PT) Subjective Information Reports that as of this weekend she did have some minor pain in the right Achilles. Her biggest fear at this point is regressions she has been doing well over all. Feels comfortable with HEP at this time. Reported Pain Level Pain Score 0: Self Report Assessment PT Clinical Summary Patient has met all goals for therapy and is suitable for discharge at this time to HEP. HEP was reviewed and patient was given increased resistance of bands. Plan of Care PT Services Indicated Yes
== END 2024-10-17 14:36 | disposition home or self-care (01) ==
LOC: ANHGOSHPT 10:15
PROVIDERS: PCP Nurse Practitioner Family
DX: M24.575 Contracture, left foot (principal); M77.32 Calcaneal spur, left foot; M24.574 Contracture, right foot
CPT/HCPCS: 97110; 97112; 97140; 97161; 97530